=== PATIENT | female | born 1980 | race Caucasian/White ===

== ENCOUNTER 2021-03-08 14:45 | Emergency (ER) | payer OTHER, BC, SELFPAY ==
--- NOTE | ~2021-03-08 | XR_ITS ---
XR ankle RT min 3V DATE: 03/08/2021 15:19 INDICATION: Fall today. Lateral ankle pain and swelling TECHNIQUE: 4 views COMPARISON: None FINDINGS: There is lateral soft tissue swelling. No fracture or dislocation of the ankle or disruptio n of the ankle mortise is detected. No periosteal reaction or bone destruction. Moderate plantar calcaneal enthesopathy. Slight posterior calcaneal enthesopathy. IMPRESSION: Lateral soft tissue swelling of the ankle; no fracture or dislocation Reviewed, dictated and finalized at location A. IMPRESSION: Lateral soft tissue swelling of the ankle; no fracture or dislocati on
[2021-03-08 14:53] VITALS: BP 145/71; PULSE 86; RESP 18; TEMP 36.3; O2SAT 98
--- NOTE | 2021-03-08 16:52 | ED.GENADULT ---
HPI - General Adult General Chief complaint: Extremity Injury, Lower Stated complaint: fall/ r ankle pain Time Seen by Provider: 03/08/21 15:54 Source: patient Mode of arrival: ambulatory Limitations: no limitations History of Present Illness HPI narrative: Patient a 40-year-old female who presents with right ankle pain that began after twisting the ankle earlier today patient denies similar occurrence in the past patient has not had anything for pain patient notes discomfort of the left knee patient presents in no distress has not anything for pain has a walker at home. Related Data Allergies Allergy/AdvReac Type Severity Reaction Status Date / Time No Known Allergies Allergy Verified 03/08/21 15:57 Review of Systems Review of Systems: All systems reviewed & are unremarkable except as noted in HPI and below PMFSH Past Medical History Medical History (Updated 03/08/21 @ 17:00 by Troy Prince PA-C) Morbid obesity Surgical History Surgical History (Updated 03/08/21 @ 16:55 by Troy Prince PA-C) Gastric bypass status for obesity Social History Social History Social History: Smoking status: Never smoker Second hand tobacco smoke exposure: No Alcohol intake: current Substance use: never Substance use type: does not use Gender identity (if verbalized by the patient): Female Exam Narrative: Exam Narrative: GENERAL: Well-appearing, morbidly obese, and in no acute distress. HEAD: Normocephalic, atraumatic. EYES: PERRLA and EOMI. ENT: Nares clear, no rhinorrhea or epistaxis. Mucous membranes moist. EXTREMITIES: Swelling and tenderness of the right ankle with out other deformities. No deformity of the anterior left knee mild tenderness SKIN: Warm, dry, no rash. NEURO: No focal deficits. Alert and oriented x3. Cranial nerves II through XII grossly intact. Neurovascularly intact PSYCH: Normal mood and affect. Course Course Emergency Course: Patient evaluated the emergency department no high risk changes in the imaging will be referred to orthopedics and primary care for further evaluation Vital Signs Vital signs: Vital Signs Temperature 97.3 F L 03/08/21 14:53 Pulse Rate 86 03/08/21 14:53 Respiratory Rate 18 03/08/21 14:53 Blood Pressure 145/71 H 03/08/21 14:53 Pulse Oximetry 98 03/08/21 14:53 Temperature 97.3 F L 03/08/21 14:53 Pulse Rate 86 03/08/21 14:53 Respiratory Rate 18 03/08/21 14:53 Blood Pressure 145/71 H 03/08/21 14:53 Pulse Oximetry 98 03/08/21 14:53 Medical Decision Making MDM Narrative Medical decision making narrative: Patients injury or pain is consistent with musculoskeletal etiology. No signs of neurological or vascular compromise on exam. Compartments and tisues are soft without signs of compartment syndrome. Pain is felt appropriate for further evaluation on an outpatient basis. Vital Signs Vital Signs: Vital Signs Temperature 97.3 F L 03/08/21 14:53 Pulse Rate 86 03/08/21 14:53 Respiratory Rate 18 03/08/21 14:53 Blood Pressure 145/71 H 03/08/21 14:53 Pulse Oximetry 98 03/08/21 14:53 Temperature 97.3 F L 03/08/21 14:53 Pulse Rate 86 03/08/21 14:53 Respiratory Rate 18 03/08/21 14:53 Blood Pressure 145/71 H 03/08/21 14:53 Pulse Oximetry 98 03/08/21 14:53 Imaging Data Radiologist's impression: ITS Impressions Ankle X-Ray 03/08/21 15:25 IMPRESSION: Lateral soft tissue swelling of the ankle; no fracture or dislocation Discharge Plan Discharge Clinical Impression: Ankle sprain and strain, Contusion of knee, left Patient Disposition: Home, Self-Care Condition: Stable Instructions: Antibiotic Form, Ankle Sprain (ED) Additional Instructions: Wear Saurabh wrap and use walker with limited weight on the affected leg until able to bear weight without pain. Ice and elevate extremity. Pain medication as n
[2021-03-08] MEDS: HYDROcodone/acetaminophen (*CRX) 5-325 MG TABLET 1 TAB PO (16:58)
[2021-03-08 17:31] VITALS: BP 163/90; PULSE 81; RESP 18; O2SAT 97
== END 2021-03-08 17:25 | disposition home or self-care (01) ==
PROVIDERS: Emergency Provider Emergency Medicine; PCP Family Medicine
DX: S93.401A Sprain of unspecified ligament of right ankle, initial encounter (principal); S96.911A Strain of unspecified muscle and tendon at ankle and foot level, right foot, initial encounter; S80.02XA Contusion of left knee, initial encounter; E66.01 Morbid (severe) obesity due to excess calories; Z68.42 Body mass index [BMI] 45.0-49.9, adult; Z98.84 Bariatric surgery status; X50.9XXA Other and unspecified overexertion or strenuous movements or postures, initial encounter; W19.XXXA Unspecified fall, initial encounter
CPT/HCPCS: 73610; 99283; A9270

== ENCOUNTER 2022-10-03 09:52 | Outpatient (CLI) | payer BC, SELFPAY ==
[2022-10-03 10:36] LABS: Basophils Percent Auto 0.3 % (0.2-1.2); Eosinophils Absolute Auto 0.1 K/mm3 (0-0.3); Hematocrit 32.7 % (37.0-47.0); Hemoglobin 9.6 g/dL (12.0-15.0); Immature Granulocyte Absolute 0.02 K/mm3 (0.00-0.031); Immature Granulocyte Percent A 0.3 % (0-0.5); Lymphocytes Absolute Auto 2.02 K/mm3 (0.9-3.2); Lymphocytes Percent Auto 29.7 % (18.3-44.2); Mean Corpuscular HGB Conc 29.4 g/dl (32-36); Mean Corpuscular Hemoglobin 21.7 pg (26-34); Mean Platelet Volume 11.7 fl (7.4-10.4); Monocytes Absolute Auto 0.7 K/mm3 (0.1-0.6); Neutrophils Percent Auto 58.7 % (45.5-73.1); Platelet Count Result 205 k/mm3 (150-375); Red Blood Count 4.42 M/mm3 (4.2-5.4); Red Cell Distribution Width 15.6 % (11.5-14.5); White Blood Count 6.8 K/mm3 (4.5-10.0)
[2022-10-03 10:41] LABS: Appearance Urine Clear (Clear); Bilirubin Urine Negative (Negative); Blood Urine Negative (Negative); Color Urine Yellow (Yellow); Glucose Urine UA 2+ mg/dL (Negative); Ketones Urine Trace mg/dL (Negative); Leukocyte Esterase Ur Negative LEU/UL (NEGATIVE); Nitrate Urine Negative (Negative); Protein Urine Negative (Negative); Specific Grav Ur >= 1.030 (1.001-1.035); Urobilinogen Urine 0.2 mg/dL (<2.0); pH Urine 5.5 (5.0-9.0)
[2022-10-03 10:50] LABS: Bacteria Urine Trace /hpf; Mucus Urine Rare /lpf; RBC Urine 0-2 /hpf (0-2); Squamous Epithelial Cell Urine Few /hpf (Few); WBC Urine 0-3 /hpf (0-3)
[2022-10-03 10:53] LABS: Hemoglobin A1C 9.6 % (<5.7)
[2022-10-03 10:54] LABS: Alanine Aminotransferase 15 U/L (6-35); Albumin Level 3.9 g/dL (3.5-5.1); Alkaline Phosphatase 62 U/L (38-126); Amylase 58 U/L (30-110); Anion Gap 11 mmol/L (8-16); Aspartate Amino Transferase 19 U/L (14-36); Bilirubin,Total 0.3 mg/dL (0.2-1.3); Blood Urea Nitrogen 9 mg/dL (7-17); Calcium 8.4 mg/dL (8.4-10.2); Carbon Dioxide 26 mmol/L (22-30); Chloride 101 mmol/L (98-107); Cholesterol 183 mg/dL (0-200); Estimated Glomerular Filt Rate > 60; Glucose 220 mg/dL (65-110); HDL Direct 50 mg/dL; Lipase 58 U/L (23-300); Sodium 138 mmol/L (137-145); Triglycerides 109 mg/dL (<150)
[2022-10-03 11:05] LABS: LDL Cholesterol Direct 96 mg/dL
[2022-10-03 11:07] LABS: Add Urine Microscopic? YES
[2022-10-03 12:53] LABS: Anisocytosis 1+ (NORMAL); Ovalocytes 1+ (NORMAL); Platelet Estimate Adequate (Adequate)
[2022-10-03 12:54] LABS: Poikilocytosis 1+ (NORMAL); Schistocytes None Seen (NORMAL)
== END 2022-10-03 09:53 | disposition home or self-care (01) ==
LOC: ANHLAB 09:54
PROVIDERS: PCP Family Medicine; Visit Provider Physician Assistant
DX: R10.9 Unspecified abdominal pain (principal); E11.65 Type 2 diabetes mellitus with hyperglycemia; Z98.84 Bariatric surgery status
CPT/HCPCS: 36415; 80053; 80061; 81001; 82150; 83036; 83690; 84443; 85025

== ENCOUNTER 2022-11-19 12:56 | Inpatient (IN) | payer BC, SELFPAY ==
[2022-11-19] VITALS (20 sets, daily range): BP systolic 102–146; BP diastolic 47–87; PULSE 86–132; RESP 16–44; TEMP 36.2–37.3; O2SAT 91–98; BMI 50.8
--- NOTE | ~2022-11-19 | CT_ITS ---
EXAMINATION: CT abdomen pelvis w con DATE: 11/19/2022 15:17 INDICATION: RUQ/RLQ pain TECHNIQUE: Computed tomography (CT) of the abdomen and pelvis was performed with 100 mL Omnipaque-350 intravenous contrast. Automated exposure control and iterative reconstruction technique were employe d. The dose-length product was 1771.88 mGy-cm. COMPARISON: None. FINDINGS: Lower thorax: Unremarkable Liver: Small volume perihepatic fluid collection. Biliary/Gallbladder: Gallbladder is normal. No bile duct dilation. Pancreas: No mass or duct dilation. Spleen: Normal. Adrenals:No mass. Kidneys: No mass, stone, or hydronephrosis. GI tract: Changes of uncomplicated appearing gastric bypass. No small or large bowel dilation. Ruptur ed appendix. Irregular extraluminal adjacent gas collection in the retrocecal fat, accompanied by dinora ewhat rim-enhancing fluid and gas in the right paracolic gutter extending up to the liver. Mesentery/Peritoneum: No ascites, mass, or free air. Retroperitoneum: No mass. Pelvis: Pelvic organs are within normal limits. Small volume hyperdense free fluid in the deep pelvis . Soft Tissues: Soft tissues and body wall unremarkable. Bones: No acute osseous finding. IMPRESSION: Ruptured appendicitis with contained extra luminal gas in the retrocecal mesenteric fat and early dev eloping right paracolic gutter abscess. There is also perihepatic and deep pelvic fluid, without quintanilla ges of abscess formation in the dislocations at this time. Results reported telephonically to Dr. Beyer by Dr. Clements at 3:27 PM on 11/11/2022. Reviewed, dictated and finalized at location K. RUNNER IMPRESSION: Ruptured appendicitis with contained extra luminal gas in the retrocecal mesent usman fat and early developing right paracolic gutter abscess. There is also per ihepatic and deep pelvic fluid, without changes of abscess formation in the dis locations at this time. Results reported telephonically to Dr. Beyer by Dr. Clements at 3:27 PM on 11/11.
--- NOTE | ~2022-11-19 | CT_ITS ---
EXAMINATION: CT abdomen pelvis w con DATE: 11/23/2022 14:01 INDICATION: tachycardia and pain s/p rupt appy TECHNIQUE: Computed tomography (CT) of the abdomen and pelvis was performed with 100 mL Omnipaque-350 intravenous contrast. Automated exposure control and iterative reconstruction technique were employe d. The dose-length product was 1795.70 mGy-cm. COMPARISON: 11/11/2022. FINDINGS: Lower thorax: Homogenous subsegmental bibasilar consolidation. Small right pleural effusion. Liver: Normal. Biliary/Gallbladder: Slightly increased pericholecystic fluid and inflammatory change, likely reactiv e to adjacent mesenteric inflammatory change. No bile duct dilation. Pancreas: No mass or duct dilation. Spleen: Normal. Adrenals:No mass. Kidneys: No mass, stone, or hydronephrosis. GI tract: 2.3 x 3.7 cm rim enhancing fluid collection along the right lateral aspect of the distal es ophagus at the GE junction, previously much smaller and appear to be a small hiatal hernia versus duo denal diverticulum. The collection appears to be in communication with the perihepatic fluid. Prior g astric surgery. No small or large bowel dilation. The ruptured appendix is less well delineated in to day's examination. Mesentery/Peritoneum: Similar degree of perihepatic fluid. Increased mesenteric stranding in the righ t abdomen. The mildly rim-enhancing fluid and gas collection in the right paracolic gutter is decreas ed in size. However, the right abdominal approach drainage catheter terminates adjacent to the cecum and does not drain the collection. Retroperitoneum: No mass. Pelvis: Decreased volume of free pelvic fluid. 1.8 x 4.2 cm rim-enhancing fluid collection in the lef t adnexa. Otherwise the remaining pelvic organs are within normal limits. Soft Tissues: Soft tissues and body wall unremarkable. Bones: No acute osseous finding. IMPRESSION: 1. Although the right paracolic gutter abscess is smaller in size, the right anterior abdominal drain age catheter is dislodged and the tip no longer drains the collection. 2. Rim-enhancing fluid collections, concerning for developing abscesses, present at the gastroesophag eal junction and left adnexa. 3. Generally increased inflammatory changes in the right abdominal mesentery. 4. Small right pleural effusion. Bibasilar atelectasis/consolidation. Reviewed, dictated and finalized at location K. DRIVER IMPRESSION: 1. Although the right paracolic gutter abscess is smaller in size, the right an terior abdominal drainage catheter is dislodged and the tip no longer drains th e collection. 2. Rim-enhancing fluid collections, concerning for developing abscesses, presen t at the gastroesophageal junction and left adnexa. 3. Generally increased inflammatory changes in the right abdominal mesentery. 4. Small right pleural effusion. Bibasilar atelectasis/consolidation.
--- NOTE | ~2022-11-19 | CT_ITS ---
EXAMINATION: CT abdomen pelvis w con DATE: 11/26/2022 12:44 INDICATION: Right upper quadrant abdominal pain. TECHNIQUE: Computed tomography (CT) of the abdomen and pelvis was performed with 100 mL Omnipaque 350 intravenous contrast. Automated exposure control and iterative reconstruction technique were employe d. The dose-length product was 1717.65 mGy-cm. COMPARISON: CT abdomen and pelvis 11/23/2022 FINDINGS: The visualized portions of the lung bases demonstrate mild atelectasis. There is a small ri ght pleural effusion. The heart size is normal. No pericardial effusion. The liver is normal. The gal lbladder is normal in size. Gallbladder wall thickening is noted, consistent with inflammation versus edema. There are changes of gastric bypass procedure. The spleen, pancreas, adrenal glands, and kidn eys are normal. There are no dilated loops of bowel. There is wall thickening in the ascending colon and distal ileum, consistent with inflammation versus edema. Again seen are foci of gas in the fat an d peritoneum in right paracolic gutter. There is ascites in a small sliding hiatal hernia. There is a small volume of ascites adjacent to the liver and in the paracolic gutters and pelvis. Some of the a reas of fluid demonstrate mass effect and peritoneal thickening and enhancement. There is fat strandi ng in the abdomen predominantly on the right, consistent with inflammation versus edema. Body wall ed emma is noted. There are no pathologically enlarged lymph nodes. There is moderate thoracic spondylosi s and severe lumbar spondylosis. IMPRESSION: 1. Small volume of ascites, likely an exudate given the areas of mass effect and areas of peritoneal thickening and enhancement. 2. Wall thickening of ascending colon, distal ileum, and gallbladder, consistent with inflammation ve rsus edema. Fat stranding in the abdomen predominantly on the right, consistent with inflammation mir constantin edema. 3. Small right pleural effusion. Reviewed, dictated and finalized at location A. E RECEPTIONIST IMPRESSION: 1. Small volume of ascites, likely an exudate given the areas of mass effect an d areas of peritoneal thickening and enhancement. 2. Wall thickening of ascending colon, distal ileum, and gallbladder, consisten t with inflammation versus edema. Fat stranding in the abdomen predominantly on the right, consistent with inflammation versus edema. 3. Small right pleural effusion.
[2022-11-19 13:24] LABS: Basophils Absolute Auto 0.1 K/mm3 (0.0-0.1); Basophils Percent Auto 0.6 % (0.2-1.2); Eosinophils Absolute Auto 0.1 K/mm3 (0-0.3); Eosinophils Percent Auto 0.3 % (0-4.4); Hematocrit 33.8 % (37.0-47.0); Hemoglobin 10.1 g/dL (12.0-15.0); Immature Granulocyte Absolute 0.67 K/mm3 (0.00-0.031); Immature Granulocyte Percent A 4.1 % (0-0.5); Lymphocytes Absolute Auto 3.99 K/mm3 (0.9-3.2); Lymphocytes Percent Auto 24.4 % (18.3-44.2); Mean Corpuscular HGB Conc 29.9 g/dl (32-36); Mean Corpuscular Hemoglobin 21.2 pg (26-34); Mean Platelet Volume 10.9 fl (7.4-10.4); Monocytes Absolute Auto 1.3 K/mm3 (0.1-0.6); Monocytes Percent Auto 8.1 % (2.6-8.5); Neutrophils Absolute Auto 10.2 K/mm3 (1.3-6.7); Neutrophils Percent Auto 62.5 % (45.5-73.1); Nucleated Red Blood Cells Perc 0.2 % (0.0-0.2); Platelet Count Result 377 k/mm3 (150-375); Red Blood Count 4.76 M/mm3 (4.2-5.4); Red Cell Distribution Width 17.3 % (11.5-14.5); White Blood Count 16.4 K/mm3 (4.5-10.0)
[2022-11-19 13:38] LABS: Alanine Aminotransferase 14 U/L (6-35); Albumin Level 3.8 g/dL (3.5-5.1); Alkaline Phosphatase 135 U/L (38-126); Anion Gap 15 mmol/L (8-16); Aspartate Amino Transferase 20 U/L (14-36); Bilirubin,Total 0.4 mg/dL (0.2-1.3); Blood Urea Nitrogen 6 mg/dL (7-17); Calcium 8.7 mg/dL (8.4-10.2); Carbon Dioxide 16 mmol/L (22-30); Chloride 102 mmol/L (98-107); Estimated CRCL calculation 202 ml/min; Estimated Glomerular Filt Rate > 60; Glucose 188 mg/dL (65-110); Lipase 33 U/L (23-300); Potassium 3.7 mmol/L (3.4-5.0); Sodium 133 mmol/L (137-145)
[2022-11-19 13:44] LABS: Burr Cells 1+ (NORMAL); Large Platelets Present; Ovalocytes 1+ (NORMAL); Poikilocytosis 1+ (NORMAL)
[2022-11-19 13:45] LABS: Anisocytosis 1+ (NORMAL); Schistocytes Rare (NORMAL)
--- NOTE | 2022-11-19 14:31 | ED.ABDPAIN ---
HPI - Abdominal Pain General Chief Complaint: Abdominal Pain Stated Complaint: LAP AFTER LIFTING HEAVY OBJECT Time Seen by Provider: 11/19/22 14:30 History of Present Illness HPI narrative: Patient is a 41-year-old female with a history of gastric bypass in 2017 presenting with abdominal pain. Patient states that yesterday she was lifting something heavy when she suddenly developed right-sided abdominal pain. States this has been associated with nausea and several episodes of diarrhea. States that she has not actually vomited but she has been spitting things up. No fevers or chills, headache, chest pain, shortness of breath, cough, dysuria, hematuria. Related Data Allergies Allergy/AdvReac Type Severity Reaction Status Date / Time No Known Allergies Allergy Verified 11/19/22 13:04 Review of Systems Review of Systems: All systems reviewed & are unremarkable except as noted in HPI and below PMFSH Past Medical History Medical History (Updated 11/28/22 @ 14:08 by Sneha Cruz MD) Diabetes Morbid obesity Surgical History Surgical History (Updated 11/19/22 @ 17:03 by Axel Elaine MD) Gastric bypass status for obesity Social History Social History Social History: Smoking status: Never smoker Second hand tobacco smoke exposure: No Alcohol intake: current Drinks per week: 1 Alcohol use details: Occasionally Substance use: never Substance use type: does not use Other substance usage details: EDIBLES Last use: LAST WEEK Lack of Transportation: No Lack of Food: Never True Current Housing: I Have Housing Concerned About Future Housing: No Difficulty Paying Gas/Electric Bills: No Difficulty Paying for Meds: No Currently Unemployed: No Education: Master's Degree or Higher Difficulty w/ Childcare or Family Care: No Gender identity (if verbalized by the patient): Female Sexual Orientation (if Verbalized by the Patient): Straight or Heterosexual Spiritual care concerns: No Exam Narrative: GENERAL: Moderately distressed secondary to pain HEAD: Normocephalic, atraumatic. EYES: PERRLA and EOMI. ENT: Nares clear, no rhinorrhea or epistaxis. Mucous membranes moist. NECK: Supple. CHEST: Clear to auscultation. No respiratory distress. HEART: Regular rate and rhythm. No murmur heard. Normal peripheral pulses. ABDOMEN: Soft, tender right upper quadrant and right lower quadrant without guarding or rebound, nondistended EXTREMITIES: Normal range of motion. No edema. SKIN: Warm, dry, no rash. NEURO: No focal deficits. Alert and oriented x3. Course Vital Signs Vital signs: Vital Signs Temperature 98.6 F 11/19/22 12:59 Pulse Rate 86 11/19/22 12:59 Respiratory Rate 20 11/19/22 12:59 Blood Pressure 102/47 L 11/19/22 12:59 Pulse Oximetry 98 11/19/22 12:59 Temperature 97.7 F 11/27/22 05:31 Pulse Rate 83 11/27/22 05:31 Respiratory Rate 18 11/27/22 05:31 Blood Pressure 122/66 11/27/22 05:31 Pulse Oximetry 95 11/27/22 05:31 Oxygen Delivery Room Air 11/27/22 09:00 Oxygen Flow Rate 2 11/19/22 20:02 MDM - Abdominal Pain MDM Narrative Medical decision making narrative: Patient is a 41-year-old female presenting with right-sided abdominal pain and nausea. Patient is tachycardic, otherwise vitals are within normal limits. Exam is remarkable for the above. Blood work is significant for leukocytosis. CT abdomen pelvis is concerning for ruptured appendicitis with abscess formation. Patient has been covered with [facility]. I spoke with surgery who will take the patient to the OR today. Lab Data 11/19/22 13:11 11/19/22 13:11 Labs: Lab Results 11/19/22 11/19/22 11/19/22 Range/Units 13:11 13:11 13:11 WBC 16.4 H (4.5-10.0) K/mm3 RBC 4.76 (4.2-5.4) M/mm3 Hgb 10.1 L (12.0-15.0) g/dL Hct 33.8 L (37.0-47.0) % MCV 71.0 L
[2022-11-19] MEDS: SODIUM CHLORIDE 0.9% IV 1,000 ML 999 ML IV CONT (14:58)
[2022-11-19] MEDS: HYDROmorphone HCL INJ (*CRX) 1 MG/ML SYR IV PUSH ×2 (14:58→16:33)
[2022-11-19] MEDS: ONDANSETRON INJ 4 MG/2 ML VIAL IV PUSH (14:58)
[2022-11-19] MEDS: PIPERACILLIN/TAZOBACTAM SOD 4.5 GM in SODIUM CHLORIDE 0.9% IV 100 ML 200 ML IVPB (15:49)
[2022-11-19 16:50] LABS: Glucose Point of Care 256 mg/dl (65-105)
[2022-11-19] MEDS: LACTATED RINGERS 1,000 ML 30 ML IV CONT ×2 (16:50→18:56)
--- NOTE | 2022-11-19 16:53 | PM.IMHP ---
H&P: HPI History of Present Illness Date/Time: 11/19/22 16:53 Chief Complaint: Abdominal pain Narrative: Patient is a 41-year-old woman who about 10 days ago started having pretty severe pain in the right lower abdomen. She thought she pulled a muscle. That pain lasted a week. It would hurt to move. She did not notice any fever nausea or vomiting. This seemed to get better but then today she stood up and had excruciating right lower quadrant abdominal pain. She had made an appointment with her physician to be seen tomorrow but with the pain that she was experiencing today, she decided to come to the emergency room. She has had some nausea and vomiting today as well. In the emergency room she was noted to have tenderness on the right side of the abdomen. [place] [id number] [place] scan was done and shows the patient to have evidence of ruptured appendicitis. Also noteworthy, patient had laparoscopic Arpan-en-Y gastric bypass in 2017. She lost 150 lb at the time but has gained weight back. Her current BMI is 50. She also has type 2 diabetes. She was seen in the emergency room and is now taken to surgery for laparoscopic appendectomy with plans to admit the patient postoperatively. Review of Systems Review of Systems: All systems reviewed & are unremarkable except as noted in HPI and below (HPI and those items noted below) Constitutional: Constitutional: Denies chills and Denies fever(s) Cardiovascular: Cardiovascular: Denies chest pain, Denies diaphoresis, Denies dyspnea and Denies paroxysmal nocturnal dyspnea Respiratory: Respiratory: Denies chest congestion, Denies cough and Denies dyspnea Integumentary/Breasts: Skin/Breast: Denies lesions and Denies rash PMFSH Past Medical History Medical History (Updated 11/19/22 @ 17:03 by Axel Elaine MD) Diabetes Morbid obesity Surgical History Surgical History (Updated 11/19/22 @ 17:03 by Axel Elaine MD) Gastric bypass status for obesity Social History Social History Social History: Smoking status: Never smoker Second hand tobacco smoke exposure: No Alcohol intake: current Alcohol use details: Occasionally Substance use: never Substance use type: does not use Gender identity (if verbalized by the patient): Female Sexual Orientation (if Verbalized by the Patient): Straight or Heterosexual Meds Home Medications and Allergies Home Medications Medication Instructions Recorded Confirmed Type acetaminophen 650 mg 650 mg PO Q12H PRN pain #10 tabs 03/08/21 10/03/22 Rx tablet,extended release (Tylenol Arthritis Pain) omeprazole 40 mg capsule,delayed 40 mg PO DAILY #90 caps 10/03/22 10/03/22 Rx release blood sugar diagnostic (Blood #100 ea 10/08/22 Rx Glucose Test strips) blood-glucose meter #1 ea 10/08/22 Rx dapagliflozin 10 mg tablet 10 mg PO QAM #30 tabs 10/08/22 Rx (Farxiga) glipizide 5 mg tablet, extended 5 mg PO DAILY #30 tabs 10/08/22 Rx release 24 hr lancets #200 ea 10/08/22 Rx Allergies Allergy/AdvReac Type Severity Reaction Status Date / Time No Known Allergies Allergy Verified 11/19/22 13:04 Vital Signs Vital Signs - 24 hr 11/19/22 12:59 11/19/22 15:38 11/19/22 15:45 Temperature 37.0 C Pulse Rate 86 131 H 123 H Respiratory Rate 20 27 H 31 H Blood Pressure 102/47 L Pulse Oximetry 98 98 96 11/19/22 15:46 11/19/22 15:47 11/19/22 16:01 Temperature Pulse Rate 122 H 124 H 128 H Respiratory Rate 36 H 42 H 33 H Blood Pressure 116/67 Pulse Oximetry 96 96 97 11/19/22 16:15 11/19/22 16:30 11/19/22 16:31 Temperature Pulse Rate 129 H 132 H 129 H Respiratory Rate 30 H 44 H 40 H Blood Pressure 122/79 Pulse Oximetry 93 97 97 Exam Const: General: no acute distress, alert, awake, uncomfortable and obese Nutritional Appearance: obese Orientation/consciousness: No confusio
--- NOTE | 2022-11-19 16:55 | WPDANESEPPF ---
Anes - Initial Pre Proc Eval Procedure: Operation Date: 11/19/22 17:30 Proposed Procedures p Laparoscopic Appendectomy; Possible Open - Axel Elaine MD Date/Time: 11/19/22 16:55 Surgeon: Axel Elaine MD Pre Op Diagnosis: LAP AFTER LIFTING HEAVY OBJECT Patient Data Age: 41 Gender: F Height: 1.75 m Weight: 154 kg Last Vital Signs Temp 37.0 C 11/19/22 12:59 Pulse 129 H 11/19/22 16:31 Resp 40 H 11/19/22 16:31 BP 122/79 11/19/22 16:31 Pulse Ox 97 11/19/22 16:31 Allergies Allergy/AdvReac Type Severity Reaction Status Date / Time No Known Allergies Allergy Verified 11/19/22 13:04 Home Medications Medication Instructions Recorded Confirmed Type acetaminophen 650 mg 650 mg PO Q12H PRN pain #10 tabs 03/08/21 10/03/22 Rx tablet,extended release (Tylenol Arthritis Pain) omeprazole 40 mg capsule,delayed 40 mg PO DAILY #90 caps 10/03/22 10/03/22 Rx release blood sugar diagnostic (Blood #100 ea 10/08/22 Rx Glucose Test strips) blood-glucose meter #1 ea 10/08/22 Rx dapagliflozin 10 mg tablet 10 mg PO QAM #30 tabs 10/08/22 Rx (Farxiga) glipizide 5 mg tablet, extended 5 mg PO DAILY #30 tabs 10/08/22 Rx release 24 hr lancets #200 ea 10/08/22 Rx Laboratory Tests 11/19/22 11/19/22 11/19/22 13:11 13:11 16:19 WBC 16.4 K/mm3 H K/mm3 (4.5-10.0) RBC 4.76 M/mm3 M/mm3 (4.2-5.4) Hgb 10.1 g/dL L g/dL (12.0-15.0) Hct 33.8 % L % (37.0-47.0) MCV 71.0 fl L fl (80-100) MCH 21.2 pg L pg (26-34) MCHC 29.9 g/dl L g/dl (32-36) RDW 17.3 % H % (11.5-14.5) Plt Count 377 k/mm3 H D k/mm3 (150-375) MPV 10.9 fl H fl (7.4-10.4) Immature Gran % (Auto) 4.1 % H % (0-0.5) Neut % (Auto) 62.5 % % (45.5-73.1) Lymph % (Auto) 24.4 % % (18.3-44.2) Sutter % (Auto) 8.1 % % (2.6-8.5) Eos % (Auto) 0.3 % % (0-4.4) Baso % (Auto) 0.6 % % (0.2-1.2) Lymph # (Auto) 3.99 K/mm3 H K/mm3 (0.9-3.2) Sutter # (Auto) 1.3 K/mm3 H K/mm3 (0.1-0.6) Eos # (Auto) 0.1 K/mm3 K/mm3 (0-0.3) Baso # (Auto) 0.1 K/mm3 K/mm3 (0.0-0.1) Abs Immat Gran (auto) 0.67 K/mm3 H K/mm3 (0.00-0.031) Absolute Neuts (auto) 10.2 K/mm3 H K/mm3 (1.3-6.7) Absolute Nucleated RBC 0.0 K/mm3 K/mm3 (0.0-0.012) Nucleated RBC % 0.2 % % (0.0-0.2) Platelet Estimate Slightly increased (Adequate) Large Platelets Present Poikilocytosis 1+ (NORMAL) Anisocytosis 1+ (NORMAL) Ovalocytes 1+ (NORMAL) Redd Cells 1+ (NORMAL) Schistocytes Rare (NORMAL) Sodium 133 mmol/L L mmol/L (137-145) Potassium 3.7 mmol/L mmol/L (3.4-5.0) Chloride 102 mmol/L mmol/L (98-107) Carbon Dioxide 16 mmol/L L mmol/L (22-30) Anion Gap 15 mmol/L mmol/L (8-16) BUN 6 mg/dL L mg/dL (7-17) Creatinine 0.50 mg/dL L mg/dL (0.7-1.0) Estim Creat Clear Calc 202 ml/min ml/min Estimated GFR > 60 (59 - ) Glucose 188 mg/dL H mg/dL (65-110) POC Capillary Glucose Calcium 8.7 mg/dL mg/dL (8.4-10.2) Total Bilirubin 0.4 mg/dL mg/dL (0.2-1.3) AST 20 U/L U/L (14-36) ALT 14 U/L U/L (6-35) Alkaline Phosphatase 135 U/L H U/L (38-126) Total Protein 8.0 g/dL g/dL (6.3-8.2) Albumin 3.8 g/dL g/dL (3.5-5.1) Lipase 33 U/L U/L (23-300) Influenza A (RT-PCR) Pending Influenza B (RT-PCR) Pending SARS-CoV-2 RNA (RT-PCR) Pending 11/19/22 16:46 WBC RBC Hgb Hct MCV MCH MCHC RDW Plt Count MPV Immature Gran % (Auto) N
[2022-11-19 17:02] LABS: Influenza A QL RT-PCR Negative (Negative); Influenza B QL RT-PCR Negative (Negative); SARS-CoV-2 RNA PCR Negative
[2022-11-19] MEDS: BUPIVACAINE/EPINEPHRINE 0.5% 30 ML VIAL INFILTRATE (18:40)
--- NOTE | 2022-11-19 18:47 | W.PM.PROC2 ---
Procedure Note - Detailed Date of Procedure 11/19/22 Pre-op Diagnosis Ruptured appendicitis Post-op Diagnosis Other (Ruptured appendicitis with abdominal abscess and generalized peritonitis) Procedure Performed Laparoscopic appendectomy, laparoscopic drainage of intra-abdominal abscess Surgeon Axel Elaine MD [employer] [place] [employer] Anesthesia General and Local (0.5% Marcaine with epinephrine) Indications Patient is a 41-year-old woman with at least 10 days of right lower quadrant abdominal pain worse today. She came to the emergency room where she had guarding and rebound in the right lower quadrant with nausea and vomiting. [place] [address]. CT scan showed acute appendicitis with ruptured appendicitis. She is taken now to surgery for laparoscopic appendectomy Findings Patient had a lot of cloudy yellow fluid throughout the abdomen. There was evidence of generalized peritonitis. She had a foul-smelling large abscess in the right lower quadrant against the abdominal wall. The appendix was ruptured in half and had to be removed in 2 pieces. It was retrocecal. There was a lot of oozing of blood from the area of the abscess and the ruptured appendix. To uses of Surgiflo were required to achieve hemostasis. A drain was placed in the area of the abscess. Description of Procedure Patient was taken to surgery and induced into general anesthesia. The abdomen is prepped and draped. Initial trocar was a 5 mm left subcostal applied Medical optical trocar. We insufflated the abdomen and then placed the remaining trocars under direct visualization. There was a 5 mm port placed above the umbilicus. There was another 5 mm port placed just below the umbilicus and a 10 11 port was placed in the left lower quadrant. Later in the procedure we also placed a 5 mm port in the right upper quadrant for better visualization and camera placement. It was immediately noted that there was a lot of cloudy yellow fluid in the abdomen. A lot of this was in the pelvis and was all suctioned away. The right tube and ovary looked normal. I then proceeded over to the cecum. I gently be dissected the cecum off the right lateral abdominal wall and 200 cc of greenish very foul-smelling purulent fluid came forth. This was then suctioned away thoroughly. It had left a pock marked lateral abdominal wall. It was also bleeding from raw surface areas. I suctioned this away. I then suctioned away purulent and some bloody fluid from the area of the liver. The appendix was not immediately obvious. I followed the tenia to the into the cecum and then saw what appeared to be the base of the appendix. It was at this point that I placed the additional 5 mm trocar at the right upper quadrant and put the camera there. We then teased the base of the appendix free from the cecum and from other structures. The appendix was clearly ruptured in half and the distal appendix was quite tattered but was able to be pulled up and dissected free from the rest of the right lower quadrant abscess. There was also some small amounts of stool that had spilled from 1 of the appendiceal lumens. These were largely suctioned and removed with the specimen. None were left behind that I could see. I then further dissected the appendix so that all of the proximal half the appendix was dissected free and the mesoappendix was divided with cautery. Continued dissection allowed me to pull up the into the cecum so that the appendix could be ligated at its base. A Vicryl endoloop was then placed. This was used to ligate the appendix at its base. The appendix was then amputated just above the ligature. The appendix was placed in an Endo-Catch bag. All pieces of stool and the distal appendix were also placed in the Endo-Catch bag. The Endo-Catch bag was then retrieved through the 10 11 left lower quadrant trocar site. We then continued to irrigate and suction the right lower quadrant. The irrigant was c
[2022-11-19 19:05] LABS: Glucose Point of Care 249 mg/dl (65-105)
[2022-11-19] MEDS: fentaNYL CITRATE INJ (*CRX) 100 MCG/2 ML VIAL 25 MCG IV PUSH ×4 (19:20→19:26)
--- NOTE | 2022-11-19 20:05 | ADMGEN ---
This patient, Keely Vaca, was admitted to 2 Medical Room 261-01. Patient/family oriented to hospital policies and general routines including ID bracelet, bed and alarms, visiting hours, pain management, procedures, bathroom and other care routines, personal items, smoking policy, room service/diet, and visiting hours. pt admitted per bed from or Information on how to activate the Rapid Response Team has been discussed. Patient/Family are encouraged to report perceived risks to care and to ask questions if they do not understand what they are told or what they should do.
[2022-11-19] MEDS: LACTATED RINGERS 1,000 ML 100 ML IV CONT (20:24)
[2022-11-19] MEDS: FAMOTIDINE 20 MG/2 ML VIAL IV PUSH (20:28)
[2022-11-19] MEDS: IBUPROFEN IV 800 MG/200 ML 800 MG/200 ML BAG 400 MG IVPB (20:35)
[2022-11-19 20:58] LABS: Glucose Point of Care 268 mg/dl (65-105)
[2022-11-19 21:07] LABS: Hemoglobin A1C 7.6 % (<5.7)
[2022-11-19] MEDS: MORPHINE SULFATE (*CRX) 4 MG/ML INJ IV PUSH (22:48)
[2022-11-20] VITALS (7 sets, daily range): BP systolic 108–133; BP diastolic 53–73; PULSE 102–112; RESP 16–22; TEMP 36.2–36.9; O2SAT 93–98
[2022-11-20 00:21] LABS: Add Urine Microscopic? YES; Appearance Urine Clear (Clear); Bilirubin Urine 2+ (Negative); Blood Urine 3+ (Negative); Color Urine Light Yellow (Yellow); Glucose Urine UA 2+ mg/dL (Negative); Ketones Urine 3+ mg/dL (Negative); Leukocyte Esterase Ur Negative LEU/UL (Negative); Nitrate Urine Negative (Negative); Protein Urine 1+ mg/dL (Negative); Urobilinogen Urine 0.2 mg/dL (<2.0); pH Urine 5.5 (5.0-9.0)
[2022-11-20] MEDS: IBUPROFEN IV 800 MG/200 ML 800 MG/200 ML BAG 400 MG IVPB ×4 (03:07→20:53)
[2022-11-20 06:11] LABS: Hemoglobin 9.8 g/dL (12.0-15.0); Mean Corpuscular HGB Conc 29.7 g/dl (32-36); Mean Corpuscular Hemoglobin 21.4 pg (26-34); Mean Corpuscular Volume 72.1 fl (80-100); Mean Platelet Volume 10.8 fl (7.4-10.4); Platelet Count Result 358 k/mm3 (150-375); Red Blood Count 4.58 M/mm3 (4.2-5.4); Red Cell Distribution Width 17.8 % (11.5-14.5); White Blood Count 30.3 K/mm3 (4.5-10.0)
[2022-11-20 06:20] LABS: Anion Gap 17 mmol/L (8-16); Blood Urea Nitrogen 10 mg/dL (7-17); Calcium 8.1 mg/dL (8.4-10.2); Carbon Dioxide 14 mmol/L (22-30); Chloride 104 mmol/L (98-107); Estimated CRCL calculation 133 ml/min; Estimated Glomerular Filt Rate > 60; Glucose 246 mg/dL (65-110); Potassium 3.7 mmol/L (3.4-5.0); Sodium 135 mmol/L (137-145)
[2022-11-20] MEDS: MORPHINE SULFATE (*CRX) 2 MG/ML INJ IV PUSH ×2 (07:00→20:54)
--- NOTE | 2022-11-20 08:03 | PM.PNGS ---
Progress Note: A&P Assessment and Plan (1) Ruptured appendicitis: Code(s): K35.32 - Acute appendicitis with perforation, localized peritonitis, and gangrene, without abscess Status: Acute Assessment and Plan: improving, continue IV antibiotics. Try full liquids. Up in chair or up walking today. Subjective Subjective Date/Time Seen: 11/20/22 08:03 Post Op day: 1 Patient reports: no new complaints, feels better and afebrile Exam GI: Inspection: incision (Dry and healing well) GI Palp: Yes Soft to palpation and Yes Tenderness to palpation present (GI) Objective Data Vital Signs Vital Signs: Vital Signs - 24 hr 11/19/22 12:59 11/19/22 15:38 11/19/22 15:45 Temperature 37.0 C Pulse Rate 86 131 H 123 H Respiratory Rate 20 27 H 31 H Blood Pressure 102/47 L Pulse Oximetry 98 98 96 Oxygen Delivery Oxygen Flow Rate 11/19/22 15:46 11/19/22 15:47 11/19/22 16:01 Temperature Pulse Rate 122 H 124 H 128 H Respiratory Rate 36 H 42 H 33 H Blood Pressure 116/67 Pulse Oximetry 96 96 97 Oxygen Delivery Oxygen Flow Rate 11/19/22 16:15 11/19/22 16:30 11/19/22 16:31 Temperature Pulse Rate 129 H 132 H 129 H Respiratory Rate 30 H 44 H 40 H Blood Pressure 122/79 Pulse Oximetry 93 97 97 Oxygen Delivery Oxygen Flow Rate 11/19/22 17:17 11/19/22 18:56 11/19/22 19:00 Temperature 36.9 C 37.3 C Pulse Rate 131 H 118 H 123 H Respiratory Rate 24 H 29 H 30 H Blood Pressure 140/87 131/77 143/86 H Pulse Oximetry 96 94 91 Oxygen Delivery Room Air Simple Face Mask Nasal Cannula Oxygen Flow Rate 10 4 11/19/22 19:15 11/19/22 19:30 11/19/22 19:41 Temperature Pulse Rate 121 H 119 H 121 H Respiratory Rate 34 H 30 H 25 H Blood Pressure 136/82 146/85 H 126/84 Pulse Oximetry 93 94 96 Oxygen Delivery Nasal Cannula Nasal Cannula Nasal Cannula Oxygen Flow Rate 4 2 2 11/19/22 20:32 11/19/22 20:02 11/19/22 21:51 Temperature 36.6 C 36.6 C Pulse Rate 125 H 122 H Respiratory Rate 16 16 Blood Pressure 111/57 L 118/59 L Pulse Oximetry 93 96 92 Oxygen Delivery Nasal Cannula Oxygen Flow Rate 2 11/19/22 22:00 11/20/22 00:00 11/20/22 01:32 Temperature 36.6 C 36.7 C 36.7 C Pulse Rate 110 H 112 H 102 H Respiratory Rate 22 H 22 H 16 Blood Pressure 110/60 118/63 108/53 L Pulse Oximetry 98 98 93 Oxygen Delivery Oxygen Flow Rate 11/20/22 07:00 Temperature Pulse Rate Respiratory Rate Blood Pressure 133/68 Pulse Oximetry Oxygen Delivery Oxygen Flow Rate Intake/Output Intake/Output: Intake & Output 11/17/22 11/18/22 11/19/22 11/20/22 23:59 23:59 23:59 23:59 Intake Total 1950 1450 Output Total 32 1320 Balance 1918 130 Meds/Results Medications: Active Medications Generic Name Dose Route Start Last Admin Trade Name Freq PRN Reason Stop Dose Admin Acetaminophen 500 mg 11/19/22 19:48 Acetaminophen 500 Mg Tablet PO Q6H PRN Mild Pain (1-3) or Fever Dextrose 12.5 gm 11/19/22 19:48 Dextrose 50% 25 Gm/50 Ml Syringe IV PUSH PRN PRN Hypoglycemia Protocol Enoxaparin Sodium 40 mg 11/20/22 09:00 Enoxaparin 40 Mg/0.4 Ml Syringe SUB-Q DAILY MIYA Famotidine 20 mg 11/19/22 21:00 11/19/22 20:28 Famotidine 20 Mg/2 Ml Vial IV PUSH 20 mg Q12HR MIYA Administration Glucagon 1 mg 11/19/22 19:48 Glucagon For Inj 1 Mg Vial IM PRN PRN Hypoglycemia Protocol Glucose 15 gm 11/19/22 19:48 Glucose Oral Gel 15 Gm Of Glucse In 37.5 Gm Tube PO PRN PRN Hypoglycemia Protocol Lactated Ringer's 1,000 mls @ 100 mls/hr 11/19/22 19:48 11/19/22 20:24 Lr - Lactated Ringers Iv IV CONT 100 mls/hr .Q10H MIYA Administration Ibuprofen 800 mg in 200 mls @ 400 mls/hr 11/19/22 21:00 11/20/22 03:40 Caldolor 800 Mg/200 Ml IVPB Infused Q6H MIYA Infusion Piperacillin/Tazobactam/Dextrose 3.375 gm in 50 mls @ 100 mls/hr 11/19/22 21:00 11/20/22 03:0
[2022-11-20] MEDS: LACTATED RINGERS 1,000 ML 100 ML IV CONT ×2 (08:31→22:41)
[2022-11-20] MEDS: NYSTATIN 100,000 UNITS/ML SUSP 5 ML ORAL.SUSP PO ×4 (08:34→21:03)
[2022-11-20] MEDS: ENOXAPARIN 40 MG/0.4 ML SYRINGE SUB-Q (08:34)
[2022-11-20] MEDS: FAMOTIDINE 20 MG/2 ML VIAL IV PUSH ×2 (08:34→21:03)
[2022-11-20 08:58] LABS: Glucose Point of Care 224 mg/dl (65-105)
[2022-11-20] MEDS: INSULIN ASPART (*BKC) 100 UNITS/ML SUB-Q ×5 (09:01→16:55)
--- NOTE | 2022-11-20 09:27 | PM.IMCN ---
Assessment and Plan Assessment and plan (1) Morbid obesity: Code(s): E66.01 - Morbid (severe) obesity due to excess calories Status: Chronic (2) Ruptured appendicitis: Code(s): K35.32 - Acute appendicitis with perforation, localized peritonitis, and gangrene, without abscess Status: Acute (3) NAVARRO (obstructive sleep apnea): Code(s): G47.33 - Obstructive sleep apnea (adult) (pediatric) Status: Chronic (4) S/P gastric bypass: Code(s): Z98.84 - Bariatric surgery status Status: Chronic (5) DM w/o complication type II, uncontrolled: Code(s): E11.65 - Type 2 diabetes mellitus with hyperglycemia Status: Chronic (6) Tachycardia: Code(s): R00.0 - Tachycardia, unspecified Status: Acute (7) Anemia: Code(s): D64.9 - Anemia, unspecified Status: Acute Plan # ruptured appendicitis status post laparoscopic appendectomy and laparoscopic drainage of intra-abdominal abscess on 11/19/2022. Pain control with IV morphine as needed. # leukocytosis worsened today. Likely reactive from the surgery and procedure . Will get blood culture x2 today. Currently on Zosyn which will continue. Continue trended WBC and adjust antibiotics as needed. will get culture from the drainage fluid # Tachycardia could be pain related slowly improving. On IV fluid which will be continued until p.o. intake is up diane . Morphine is not working she states. Will place on hydromorphone p.r.n. # anemia: Mild noted to be anemic back in September as well. Will check iron panels vitamin B12 folic acid since she is post bypass she should be on iron supplementation. # DVT prophylaxis: enoxaparin # status post gastric bypass surgery 2016 # history of back surgery 2008 # GI prophylaxis on famotidine. # type 2 diabetes mellitus blood sugar trend reviewed. Continue sliding scale insulin A1c at 7.6 already on high-dose sliding scale will add basal bolus regimen weight based. Half dosing to begin with # code status full code HPI Data of Consult Consult date: 11/20/22 Requesting Physician: Axel Elaine MD Primary Care Provider: Kevin Noel MD Consult Narrative Narrative: Keely Vaca is a 41 year old female Past medical history of gastric bypass in 2016 tubal ligation and L4-L5 surgery in 2008 presented with severe abdominal pain yesterday found to have ruptured appendicitis. She underwent surgery and had appendectomy with drainage for abscess. She has drainage in right lower quadrant currently. Abdomen is sore no bowel movement or flat us. Denies any chest pain or shortness of breath. she denies any fever or chills. Hospice team consulted form perioperative medical management. Vitals were reviewed which shows tachycardia overnight. Serosanguineous drainage in the drainage bulb from right lower quadrant noted. Review of Systems Review of Systems: - CONSTITUTIONAL: Denies weight loss, fever and chills. - HEENT: Denies changes in vision and hearing - RESPIRATORY: Denies SOB and cough. - CV: Denies palpitations and CP. - GI: Reports abdominal pain, no nausea, vomiting and diarrhea. - : Denies dysuria and urinary frequency. - MSK: Denies myalgia and joint pain. - SKIN: Denies rash and pruritus. - NEUROLOGICAL: Denies headache and syncope. - PSYCHIATRIC: Denies recent changes in mood. Denies anxiety and depression. [facility] Past Medical History Medical History (Updated 11/20/22 @ 10:24 by Deonte Campos MD) Diabetes Morbid obesity Surgical History Surgical History (Updated 11/19/22 @ 17:03 by Axel Elaine MD) Gastric bypass status for obesity Social History Social History Social History: Smoking status: Never smoker Second hand tobacco smoke exposure: No Alcohol intake: current Drinks per week: 1 Alcohol use details: Occasionally Substance use: ne
[2022-11-20 11:49] LABS: Iron < 10 ug/dL (37-170)
[2022-11-20 12:10] LABS: Percent Iron Saturation < 4 % (20-50)
[2022-11-20 12:16] LABS: Glucose Point of Care 235 mg/dl (65-105)
--- NOTE | 2022-11-20 12:26 | WPDANESPN ---
Anes - Prog Note Post-Op Date/Time: 11/20/22 12:26 Vital Signs: Last Vital Signs Temp 36.7 C 11/20/22 01:32 Pulse 102 H 11/20/22 01:32 Resp 16 11/20/22 08:34 BP 133/68 11/20/22 07:00 Pulse Ox 93 11/20/22 08:34 O2 Del Method Room Air 11/20/22 08:34 O2 Flow Rate 2 11/19/22 20:02 Pain Score (VAS): 3 I/O: Intake & Output 11/19/22 11/20/22 11/20/22 23:59 07:59 15:59 Intake Total 1850 2450 610 Output Total 32 1320 65 Balance 1818 1130 545 Laboratory Tests 11/20/22 05:46 11/20/22 05:46 11/19/22 11/19/22 11/19/22 13:11 13:11 13:11 WBC 16.4 H RBC 4.76 Hgb 10.1 L Hct 33.8 L MCV 71.0 L MCH 21.2 L MCHC 29.9 L RDW 17.3 H Plt Count 377 H D MPV 10.9 H Immature Gran % (Auto) 4.1 H Neut % (Auto) 62.5 Lymph % (Auto) 24.4 [place] % (Auto) 8.1 Eos % (Auto) 0.3 Baso % (Auto) 0.6 Lymph # (Auto) 3.99 H [place] # (Auto) 1.3 H Eos # (Auto) 0.1 Baso # (Auto) 0.1 Abs Immat Gran (auto) 0.67 H Absolute Neuts (auto) 10.2 H Absolute Nucleated RBC 0.0 Nucleated RBC % 0.2 Platelet Estimate Slightly increased Large Platelets Present Poikilocytosis 1+ Anisocytosis 1+ Ovalocytes 1+ Redd Cells 1+ Schistocytes Rare Sodium 133 L Potassium 3.7 Chloride 102 Carbon Dioxide 16 L Anion Gap 15 BUN 6 L Creatinine 0.50 L Estim Creat Clear Calc 202 Estimated GFR > 60 Glucose 188 H POC Capillary Glucose Hemoglobin A1c 7.6 H Calcium 8.7 Iron TIBC % Saturation Ferritin Total Bilirubin 0.4 AST 20 ALT 14 Alkaline Phosphatase 135 H Total Protein 8.0 Albumin 3.8 Lipase 33 Vitamin B12 Folate Urine Color Urine Appearance Urine pH Ur Specific [place] Urine Protein Urine Glucose (UA) Urine Ketones Ur Blood (Man) Urine Nitrate Urine Bilirubin Urine Urobilinogen Leukocyte Esterase Rfl Influenza A (RT-PCR) Influenza B (RT-PCR) SARS-CoV-2 RNA (RT-PCR) 11/19/22 11/19/22 11/19/22 16:19 16:46 19:02 WBC RBC Hgb Hct MCV MCH MCHC RDW Plt Count MPV Immature Gran % (Auto) Neut % (Auto) Lymph % (Auto) [place] % (Auto) Eos % (Auto) Baso % (Auto) Lymph # (Auto) [place] # (Auto) Eos # (Auto) Baso # (Auto) Abs Immat Gran (auto) Absolute Neuts (auto) Absolute Nucleated RBC Nucleated RBC % Platelet Estimate Large Platelets Poikilocytosis Anisocytosis Ovalocytes Redd Cells Schistocytes Sodium Potassium Chloride Carbon Dioxide Anion Gap BUN Creatinine Estim Creat Clear Calc Estimated GFR Glucose POC Capillary Glucose 256 H 249 H Hemoglobin A1c Calcium Iron TIBC % Saturation Ferritin Total Bilirubin AST ALT Alkaline Phosphatase Total Protein Albumin Lipase Vitamin B12 Folate Urine Color Urine Appearance Urine pH Ur Specific [place] Urine Protein Urine Glucose (UA) Urine Ketones Ur Blood (Man) Urine Nitrate Urine Bilirubin Urine Urobilinogen Leukocyte Esterase Rfl Influenza A (RT-PCR) Negative Influenza B (RT-PCR) Negative SARS-CoV-2 RNA (RT-PCR) Negative 11/19/22 11/20/22 11/20/22 20:43 00:14 05:46 WBC 30.3 H RBC 4.58 Hgb 9.8 L Hct 33.0 L MCV 72.1 L MCH 21.4 L MCHC 29.7 L RDW 17.8 H Plt Count 358 MPV 10.8 H Immature Gran % (Auto) Neut % (Auto) Lymph % (Auto) [place] % (Auto) Eos % (Auto) Baso % (Auto) Lymph # (Auto) [place] # (Auto) Eos # (Auto) Baso # (Auto) Abs Immat Gran (auto) Absolute Neuts (auto) Absolute Nucleated RBC Nucleated RBC % Platelet Estimate Large Platelets Poikilocytosis Anisocytosis Ovalocytes Redd Cells Schistocytes Sod
[2022-11-20 12:35] LABS: Folic Acid 7.7 ng/mL (2.76->20)
[2022-11-20 12:51] LABS: Add Urine Microscopic? YES; Appearance Urine Cloudy (Clear); Bilirubin Urine 2+ (Negative); Blood Urine 3+ (Negative); Color Urine Yellow (Yellow); Glucose Urine UA 2+ mg/dL (Negative); Ketones Urine 3+ mg/dL (Negative); Leukocyte Esterase Ur Negative LEU/UL (NEGATIVE); Nitrate Urine Negative (Negative); Protein Urine 1+ mg/dL (Negative); Specific Grav Ur 1.025 (1.001-1.035); Urobilinogen Urine 0.2 mg/dL (<2.0); pH Urine 5.5 (5.0-9.0)
[2022-11-20 13:12] LABS: Mucus Urine Rare /lpf; RBC Urine >75 /hpf (0-2); Squamous Epithelial Cell Urine Few /hpf (Few)
[2022-11-20 16:53] LABS: Glucose Point of Care 217 mg/dl (65-105)
[2022-11-20 21:51] LABS: Glucose Point of Care 174 mg/dl (65-105)
[2022-11-20] MEDS: HYDROcodone/acetaminophen (*CRX) 10-325 MG TABLET 1 TAB PO (23:55)
[2022-11-21] MEDS: MORPHINE SULFATE (*CRX) 2 MG/ML INJ IV PUSH ×3 (03:09→21:48)
[2022-11-21] MEDS: IBUPROFEN IV 800 MG/200 ML 800 MG/200 ML BAG 400 MG IVPB (03:55)
[2022-11-21 05:56] LABS: Hematocrit 25.6 % (37.0-47.0); Hemoglobin 7.7 g/dL (12.0-15.0); Mean Corpuscular HGB Conc 30.1 g/dl (32-36); Mean Corpuscular Hemoglobin 21.2 pg (26-34); Mean Corpuscular Volume 70.5 fl (80-100); Mean Platelet Volume 10.4 fl (7.4-10.4); Platelet Count Result 280 k/mm3 (150-375); Red Blood Count 3.63 M/mm3 (4.2-5.4); Red Cell Distribution Width 17.6 % (11.5-14.5); White Blood Count 25.2 K/mm3 (4.5-10.0)
[2022-11-21 06:00] VITALS: BP 105/47; PULSE 88; RESP 20; TEMP 36.2; O2SAT 98
[2022-11-21] MEDS: HYDROcodone/acetaminophen (*CRX) 10-325 MG TABLET 1 TAB PO ×2 (06:10→12:39)
[2022-11-21 06:14] LABS: Alanine Aminotransferase 13 U/L (6-35); Albumin Level 2.6 g/dL (3.5-5.1); Alkaline Phosphatase 80 U/L (38-126); Anion Gap 7 mmol/L (8-16); Aspartate Amino Transferase 16 U/L (14-36); Bilirubin,Total 0.3 mg/dL (0.2-1.3); Blood Urea Nitrogen 16 mg/dL (7-17); Carbon Dioxide 24 mmol/L (22-30); Chloride 100 mmol/L (98-107); Estimated CRCL calculation 133 ml/min; Estimated Glomerular Filt Rate > 60; Glucose 149 mg/dL (65-110); Magnesium 1.6 mg/dL (1.6-2.3); Potassium 3.2 mmol/L (3.4-5.0); Sodium 131 mmol/L (137-145)
[2022-11-21 07:30] LABS: Band Neutrophils Percent 17 % (0-6); Lymphocytes Absolute Manual 2.01 K/mm3 (1.1-4.5); Monocytes Absolute Manual 0.75 K/mm3 (0.1-0.90); Monocytes Percent Manual 3 % (3-9); Neutrophils Absolute Manual 22.42 K/mm3 (1.7-7.2); Neutrophils Percent Manual 72 % (46-73); Platelet Estimate Adequate (Adequate); Total Cells Counted 100
[2022-11-21 07:31] LABS: Ovalocytes 1+ (NORMAL); Schistocytes None Seen (NORMAL)
[2022-11-21 07:32] LABS: Burr Cells 2+ (NORMAL); Microcytosis 1+ (NORMAL)
[2022-11-21 08:04] LABS: Glucose Point of Care 149 mg/dl (65-105)
[2022-11-21] MEDS: INSULIN ASPART (*BKC) 100 UNITS/ML SUB-Q ×3 (08:29→17:22)
[2022-11-21] MEDS: INSULIN GLARGINE (*BKC) 100 UNITS/ML 12 UNITS SUB-Q (08:29)
[2022-11-21] MEDS: PANTOPRAZOLE 40 MG TABLET PO (08:38)
[2022-11-21] MEDS: ENOXAPARIN 40 MG/0.4 ML SYRINGE SUB-Q (08:38)
[2022-11-21] MEDS: NYSTATIN 100,000 UNITS/ML SUSP 5 ML ORAL.SUSP PO ×4 (08:38→21:00)
[2022-11-21] MEDS: POTASSIUM CHLORIDE 20 MEQ TABLET 40 MEQ PO (09:25)
[2022-11-21 10:00] VITALS: BP 121/66; PULSE 94; RESP 20; TEMP 36.1; O2SAT 93
--- NOTE | 2022-11-21 10:24 | PM.PNGS ---
Progress Note: A&P Assessment and Plan (1) Ruptured appendicitis: Code(s): K35.32 - Acute appendicitis with perforation, localized peritonitis, and gangrene, without abscess Status: Acute Assessment and Plan: improving. Patient unable to ambulate as per her own admission, her protuberant abdomen pulls on her trocar site incisions and causes severe pain. She is not feel dizzy or unstable, nor does she feel she is too weak but is not really ambulating very much due to this pain. Otherwise she is doing quite well. Continue IV Zosyn antibiotics. Advanced to low-fiber diet. Supplement potassium. Stop IV fluids. Pain noted above should improve in the next day or 2. (2) Anemia: Code(s): D64.9 - Anemia, unspecified Status: Chronic Assessment and Plan: Patient noted as an outpatient before her present illness that she was anemic and was to be investigated but then developed ruptured appendicitis as noted above. Current anemia not a significant drop from preop H&H. Continue to monitor closely. Etiology not clear. (3) DM w/o complication type II, uncontrolled: Code(s): E11.65 - Type 2 diabetes mellitus with hyperglycemia Status: Chronic Assessment and Plan: Blood sugars improved. Subjective Subjective Date/Time Seen: 11/21/22 10:24 Post Op day: 2 Patient reports: feels better, pain is less, tolerating liquids well and afebrile Exam Const: General: comfortable and no acute distress; No confusion Orientation/consciousness: patient oriented x3 and No confusion Resp: Effort & Inspection: normal respiratory effort Auscultation: clear to auscultation bilaterally Cardio: Rate: regular rate Rhythm: regular rhythm GI: Inspection: non-distended, incision ( Dry and healing well) and obesity GI Palp: Yes Soft to palpation, Yes Tenderness to palpation present (GI), No Guarding due to palpation present (GI) and No Rebound tenderness present Auscultation: normal bowel sounds Neuro: General: patient oriented x3, no focal motor deficits and No confusion Extrem: General: no calf tenderness and no edema Psych: Affect: normal affect Insight: Good insight present (Psych) Judgement: Good judgement present (Psych) Objective Data Vital Signs Vital Signs: Vital Signs - 24 hr 11/20/22 12:23 11/20/22 17:41 11/20/22 22:57 Temperature 36.9 C 36.4 C L 36.2 C L Pulse Rate 110 H 112 H 104 H Respiratory Rate 18 18 18 Blood Pressure 121/67 116/60 126/73 Pulse Oximetry 94 96 97 11/21/22 06:00 11/21/22 10:00 Temperature 36.2 C L 36.1 C L Pulse Rate 88 94 Respiratory Rate 20 20 Blood Pressure 105/47 L 121/66 Pulse Oximetry 98 93 Intake/Output Intake/Output: Intake & Output 11/18/22 11/19/22 11/20/22 11/21/22 23:59 23:59 23:59 23:59 Intake Total 1950 5280 1260 Output Total 32 1510 840 Balance 1918 3770 420 Meds/Results Medications: Active Medications Generic Name Dose Route Start Last Admin Trade Name Freq PRN Reason Stop Dose Admin Acetaminophen 500 mg 11/19/22 19:48 Acetaminophen 500 Mg Tablet PO Q6H PRN Mild Pain (1-3) or Fever Hydrocodone Bitart/Acetaminophen 1 tab 11/20/22 19:32 Hydrocodone/Acetaminophen (*Crx) 5-325 Mg Tablet PO Q4H PRN Pain Rated 4-6 Hydrocodone Bitart/Acetaminophen 1 tab 11/20/22 19:32 11/21/22 06:10 Hydrocodone/Acetaminophen (*Crx) 10-325 Mg Tablet PO 1 tab Q6H PRN Administration Pain Rated 7-10 Dextrose 12.5 gm 11/19/22 19:48 Dextrose 50% 25 Gm/50 Ml Syringe IV PUSH PRN PRN Hypoglycemia Protocol Enoxaparin Sodium 40 mg 11/20/22 09:00 11/21/22 08:38 Enoxaparin 40 Mg/0.4 Ml Syringe SUB-Q 40 mg DAILY MIYA Administration Glucagon 1 mg 11/19/22 19:48 Glucagon For Inj 1 Mg Vial IM PRN PRN Hypoglycemia Protocol Glucose 15 gm 11/19/22 19:48 Glucose Oral Gel 15 Gm Of Glucse In 37.5 Gm Tube PO PRN PRN Hypoglycem
[2022-11-21 11:51] LABS: Glucose Point of Care 167 mg/dl (65-105)
[2022-11-21 13:50] VITALS: BP 107/63; PULSE 103; RESP 18; TEMP 36.6; O2SAT 92
[2022-11-21 16:54] LABS: Glucose Point of Care 154 mg/dl (65-105)
[2022-11-21] MEDS: POTASSIUM CHLORIDE 20 MEQ TABLET.ER 40 MEQ PO (17:22)
--- NOTE | 2022-11-21 18:04 | PM.IMPN ---
Progress Note: A&P Assessment and Plan (1) Morbid obesity: Code(s): E66.01 - Morbid (severe) obesity due to excess calories Status: Chronic (2) Ruptured appendicitis: Code(s): K35.32 - Acute appendicitis with perforation, localized peritonitis, and gangrene, without abscess Status: Acute (3) NAVARRO (obstructive sleep apnea): Code(s): G47.33 - Obstructive sleep apnea (adult) (pediatric) Status: Chronic (4) S/P gastric bypass: Code(s): Z98.84 - Bariatric surgery status Status: Chronic (5) DM w/o complication type II, uncontrolled: Code(s): E11.65 - Type 2 diabetes mellitus with hyperglycemia Status: Chronic (6) Tachycardia: Code(s): R00.0 - Tachycardia, unspecified Status: Acute (7) Anemia: Code(s): D64.9 - Anemia, unspecified Status: Chronic Plan # ruptured appendicitis status post laparoscopic appendectomy and laparoscopic drainage of intra-abdominal abscess on 11/19/2022. Pain control with IV morphine as needed. # leukocytosis slightly improved today. Likely reactive from the surgery and procedure . Blood cultures no growth today. Currently on Zosyn which will continue. Continue trended WBC and adjust antibiotics as needed. Culture from the drainage fluid pending # Tachycardia could be pain related slowly improving. On IV fluid which will be continued until p.o. intake is up diane . Morphine is not working she states. Will place on hydromorphone p.r.n. # anemia: Mild noted to be anemic back in September as well. Iron profile low iron saturation will give IV Venofer. Vitamin B12 folic acid since she is post bypass she should be on iron supplementation. # DVT prophylaxis: enoxaparin # status post gastric bypass surgery 2016 # history of back surgery 2008 # GI prophylaxis on famotidine. # type 2 diabetes mellitus blood sugar trend reviewed. Continue sliding scale insulin A1c at 7.6 already on high-dose sliding scale will add basal bolus regimen weight based. Half dosing to begin with. Blood sugar trend reviewed and at goal currently. A1c at 7.6 # code status full code Subjective Date/time seen: 11/21/22 18:04 Interval history: Feels better. Remains afebrile. Discussed lab findings. Review of Systems Review of Systems: All systems reviewed & are unremarkable except as noted in HPI and below Exam Narrative: GENERAL: patient with morbid obesity, not in acute distress HEAD: Normocephalic, atraumatic. EYES: PERRLA and EOMI. ENT: Nares clear, no rhinorrhea or epistaxis.? Mucous membranes moist. NECK: Supple. CHEST: Clear to auscultation.? No respiratory distress. HEART: tachycardic, regular rhythm..? No murmur heard.? Normal peripheral pulses. ABDOMEN: Soft, Mildly tender diffusely. Dressing on right lower quadrant present with drainage tube coming out to a bulb with serosanguineous drainage in the bulb. Bowel sound normoactive, nondistended EXTREMITIES: Normal range of motion.? No edema. SKIN: Warm, dry, no rash. NEURO: No focal deficits.? Alert and oriented x3. Objective Data Vital Signs Vital Signs: Vital Signs - 24 hr 11/20/22 22:57 11/21/22 06:00 11/21/22 10:00 Temperature 97.2 F L 97.1 F L 97.0 F L Pulse Rate 104 H 88 94 Respiratory Rate 18 20 20 Blood Pressure 126/73 105/47 L 121/66 Pulse Oximetry 97 98 93 Oxygen Delivery 11/21/22 08:40 11/21/22 13:50 Temperature 97.8 F Pulse Rate 103 H Respiratory Rate 18 Blood Pressure 107/63 Pulse Oximetry 92 Oxygen Delivery Room Air Intake/Output Intake/Output: Intake & Output 11/18/22 11/19/22 11/20/22 11/21/22 23:59 23:59 23:59 23:59 Intake Total 1950 5280 1550 Output Total 32 1510 870 Balance 8125 5911 173 Meds/Results Medications: Active Medications Generic Name Dose Route Start Last Admin Trade Name Freq PRN Reason Stop Dose Admin Acetaminophen 500 mg 11/19/22 19:48 Acetaminophen 500 Mg Tablet PO Q6H SD
[2022-11-21] MEDS: IRON SUCROSE COMPLEX 200 MG in SODIUM CHLORIDE 0.9% IV 50 ML 120 MG IVPB (19:00)
[2022-11-21] MEDS: HYDROcodone/acetaminophen (*CRX) 5-325 MG TABLET 1 TAB PO (19:06)
[2022-11-21 21:55] LABS: Glucose Point of Care 146 mg/dl (65-105)
[2022-11-21 22:00] VITALS: BP 120/72; PULSE 112; RESP 16; TEMP 36.4; O2SAT 94
[2022-11-22] MEDS: HYDROcodone/acetaminophen (*CRX) 10-325 MG TABLET 1 TAB PO ×2 (02:12→10:12)
[2022-11-22 06:15] VITALS: BP 136/68; PULSE 107; RESP 16; TEMP 36.6; O2SAT 92
[2022-11-22 06:19] LABS: Hemoglobin 8.1 g/dL (12.0-15.0); Mean Corpuscular Hemoglobin 20.9 pg (26-34); Mean Corpuscular Volume 69.6 fl (80-100); Mean Platelet Volume 10.7 fl (7.4-10.4); Platelet Count Result 329 k/mm3 (150-375); Red Blood Count 3.88 M/mm3 (4.2-5.4); Red Cell Distribution Width 17.7 % (11.5-14.5); White Blood Count 25.9 K/mm3 (4.5-10.0)
[2022-11-22 06:45] LABS: Anion Gap 6 mmol/L (8-16); Blood Urea Nitrogen 12 mg/dL (7-17); Calcium 8.2 mg/dL (8.4-10.2); Carbon Dioxide 26 mmol/L (22-30); Chloride 100 mmol/L (98-107); Estimated CRCL calculation 173 ml/min; Estimated Glomerular Filt Rate > 60; Glucose 153 mg/dL (65-110); Potassium 3.1 mmol/L (3.4-5.0); Sodium 132 mmol/L (137-145)
[2022-11-22 08:33] LABS: Glucose Point of Care 137 mg/dl (65-105)
[2022-11-22] MEDS: INSULIN ASPART (*BKC) 100 UNITS/ML SUB-Q ×4 (09:55→17:33)
[2022-11-22] MEDS: POTASSIUM CHLORIDE 20 MEQ TABLET 40 MEQ PO (09:55)
[2022-11-22] MEDS: POTASSIUM CHLORIDE 20 MEQ TABLET.ER 40 MEQ PO ×2 (09:56→17:32)
[2022-11-22] MEDS: NYSTATIN 100,000 UNITS/ML SUSP 5 ML ORAL.SUSP PO ×4 (09:56→20:18)
[2022-11-22] MEDS: INSULIN GLARGINE (*BKC) 100 UNITS/ML 12 UNITS SUB-Q (09:56)
[2022-11-22] MEDS: PANTOPRAZOLE 40 MG TABLET PO (09:56)
[2022-11-22] MEDS: ENOXAPARIN 40 MG/0.4 ML SYRINGE SUB-Q (09:56)
--- NOTE | 2022-11-22 12:17 | PM.PNGS ---
Progress Note: A&P Assessment and Plan (1) Ruptured appendicitis: Code(s): K35.32 - Acute appendicitis with perforation, localized peritonitis, and gangrene, without abscess Status: Acute Assessment and Plan: Improving slowly. Antibiotics have been changed to imipenem. Advance to diabetic diet. Encourage ambulation as pain allows. Making progress. (2) DM w/o complication type II, uncontrolled: Code(s): E11.65 - Type 2 diabetes mellitus with hyperglycemia Status: Chronic Assessment and Plan: Blood sugars improved Subjective Subjective Date/Time Seen: 11/22/22 12:17 Post Op day: 3 Patient reports: feels better, pain is less, no bowel movement and afebrile Exam GI: Inspection: incision (All incisions healing well, cloudy serous fluid in KEITH) and obesity GI Palp: Yes abdominal tenderness, Yes Soft to palpation, No Hernia present and No Palpable mass present Auscultation: Hypoactive bowel sounds present Objective Data Vital Signs Vital Signs: Vital Signs - 24 hr 11/21/22 13:50 11/21/22 22:00 11/22/22 06:15 Temperature 36.6 C 36.4 C 36.6 C Pulse Rate 103 H 112 H 107 H Respiratory Rate 18 16 16 Blood Pressure 107/63 120/72 136/68 Pulse Oximetry 92 94 92 Intake/Output Intake/Output: Intake & Output 11/19/22 11/20/22 11/21/22 11/22/22 23:59 23:59 23:59 23:59 Intake Total 1950 5280 1900 940 Output Total 32 1510 870 510 Balance 1918 3770 1030 430 Meds/Results Medications: Active Medications Generic Name Dose Route Start Last Admin Trade Name Freq PRN Reason Stop Dose Admin Acetaminophen 500 mg 11/19/22 19:48 Acetaminophen 500 Mg Tablet PO Q6H PRN Mild Pain (1-3) or Fever Hydrocodone Bitart/Acetaminophen 1 tab 11/20/22 19:32 11/21/22 19:06 Hydrocodone/Acetaminophen (*Crx) 5-325 Mg Tablet PO 1 tab Q4H PRN Administration Pain Rated 4-6 Hydrocodone Bitart/Acetaminophen 1 tab 11/20/22 19:32 11/22/22 10:12 Hydrocodone/Acetaminophen (*Crx) 10-325 Mg Tablet PO 1 tab Q6H PRN Administration Pain Rated 7-10 Dextrose 12.5 gm 11/19/22 19:48 Dextrose 50% 25 Gm/50 Ml Syringe IV PUSH PRN PRN Hypoglycemia Protocol Enoxaparin Sodium 40 mg 11/20/22 09:00 11/22/22 09:56 Enoxaparin 40 Mg/0.4 Ml Syringe SUB-Q 40 mg DAILY MIYA Administration Glucagon 1 mg 11/19/22 19:48 Glucagon For Inj 1 Mg Vial IM PRN PRN Hypoglycemia Protocol Glucose 15 gm 11/19/22 19:48 Glucose Oral Gel 15 Gm Of Glucse In 37.5 Gm Tube PO PRN PRN Hypoglycemia Protocol Hydromorphone HCl 1 mg 11/20/22 10:21 Hydromorphone Hcl Inj (*Crx) 1 Mg/Ml Syr IV PUSH Q6H PRN Pain 7-10 IF NPO Dextrose 1,000 mls @ 100 mls/hr 11/19/22 19:48 Dextrose 5% 1,000 Ml IVPB PRN PRN Hypoglycemia Protocol Ibuprofen 800 mg in 200 mls @ 400 mls/hr 11/21/22 08:38 Caldolor 800 Mg/200 Ml IVPB Q6H PRN Mild Pain (1-3) or Headache Imipenem/Cilastatin Sodium 500 mg in 100 mls @ 300 mls/hr 11/22/22 12:15 Primaxin 500 Mg/Ns 100 Ml IVPB Q6HR [facility] Insulin Aspart 4 - 8 units 11/20/22 08:00 11/22/22 09:48 Insulin Aspart (*Bkc) 100 Units/Ml SUB-Q Not Given TIDWM [facility] Protocol Insulin Aspart 5 units 11/20/22 12:00 11/22/22 09:55 Insulin Aspart (*Bkc) 100 Units/Ml SUB-Q 5 units TIDWM MIYA Administration Insulin Glargine 12 units 11/21/22 09:00 11/22/22 09:56 Insulin Glargine (*Bkc) 100 Units/Ml SUB-Q 12 units DAILY MIYA Administration Morphine Sulfate 2 mg 11/19/22 19:48 11/21/22 21:48 Morphine Sulfate (*Crx) 2 Mg/Ml Inj IV PUSH 2 mg Q2H PRN Administration Pain Rated 4-6 Naloxone HCl 0.1 mg 11/19/22 19:48 Naloxone Hcl 0.4 Mg/Ml Vial IV PUSH Q2M PRN Opiate Reversal Nystatin 5 ml 11/20/22 09:00 11/22/22 09:56 Nystatin 100,000 Units/Ml Susp 5 Ml Oral.Susp PO 5 ml QID MIYA Administration P
[2022-11-22 12:19] LABS: Glucose Point of Care 230 mg/dl (65-105)
--- NOTE | 2022-11-22 15:04 | PM.IMPN ---
Progress Note: A&P Assessment and Plan (1) Morbid obesity: Code(s): E66.01 - Morbid (severe) obesity due to excess calories Status: Chronic (2) Ruptured appendicitis: Code(s): K35.32 - Acute appendicitis with perforation, localized peritonitis, and gangrene, without abscess Status: Acute (3) NAVARRO (obstructive sleep apnea): Code(s): G47.33 - Obstructive sleep apnea (adult) (pediatric) Status: Chronic (4) S/P gastric bypass: Code(s): Z98.84 - Bariatric surgery status Status: Chronic (5) DM w/o complication type II, uncontrolled: Code(s): E11.65 - Type 2 diabetes mellitus with hyperglycemia Status: Chronic (6) Tachycardia: Code(s): R00.0 - Tachycardia, unspecified Status: Acute (7) Anemia: Code(s): D64.9 - Anemia, unspecified Status: Chronic Plan # ruptured appendicitis status post laparoscopic appendectomy and laparoscopic drainage of intra-abdominal abscess on 11/19/2022. Pain control with IV morphine as needed. # leukocytosis slightly improved but is still persistent. Will change antibiotic to imipenem today from Zosyn. If still persistent may need to rescan to see any other source. Blood cultures no growth. Culture from the drainage fluid pending # Tachycardia could be pain related slowly improving. On IV fluid which will be continued until p.o. intake is up diane . Morphine is not working she states. Will place on hydromorphone p.r.n. # anemia: Mild noted to be anemic back in September as well. Iron profile low iron saturation IV Venofer received. Vitamin B12 folic acid since she is post bypass she should be on iron supplementation. # DVT prophylaxis: enoxaparin # status post gastric bypass surgery 2016 # history of back surgery 2008 # GI prophylaxis on famotidine. # type 2 diabetes mellitus blood sugar trend reviewed.Continue sliding scale insulin A1c at 7.6 already on high-dose sliding scale will add basal bolus regimen weight based. Half dosing to begin with. Blood sugar trend reviewed and at goal currently. A1c at 7.6 # code status full code Subjective Date/time seen: 11/22/22 15:04 Interval history: No overnight events. Shortness in her right lower quadrant. Drain is reviewed. Has not had any bowel movement. Remains afebrile. Labs reviewed. Review of Systems Review of Systems: All systems reviewed & are unremarkable except as noted in HPI and below Exam Narrative: GENERAL: patient with morbid obesity, not in acute distress HEAD: Normocephalic, atraumatic. EYES: PERRLA and EOMI. ENT: Nares clear, no rhinorrhea or epistaxis.? Mucous membranes moist. NECK: Supple. CHEST: Clear to auscultation.? No respiratory distress. HEART: tachycardic, regular rhythm..? No murmur heard.? Normal peripheral pulses. ABDOMEN: Soft, Mildly tender diffusely. Dressing on right lower quadrant present with drainage tube coming out to a bulb with serosanguineous drainage in the bulb. Bowel sound normoactive, nondistended EXTREMITIES: Normal range of motion.? No edema. SKIN: Warm, dry, no rash. NEURO: No focal deficits.? Alert and oriented x3. Objective Data Vital Signs Vital Signs: Vital Signs - 24 hr 11/21/22 22:00 11/22/22 06:15 Temperature 97.6 F 97.9 F Pulse Rate 112 H 107 H Respiratory Rate 16 16 Blood Pressure 120/72 136/68 Pulse Oximetry 94 92 Intake/Output Intake/Output: Intake & Output 11/19/22 11/20/22 11/21/22 11/22/22 23:59 23:59 23:59 23:59 Intake Total 1950 5280 1900 1900 Output Total 32 1510 870 510 Balance 1918 3770 1030 1390 Meds/Results Medications: Active Medications Generic Name Dose Route Start Last Admin Trade Name Freq PRN Reason Stop Dose Admin Acetaminophen 500 mg 11/19/22 19:48 Acetaminophen 500 Mg Tablet PO Q6H PRN Mild Pain (1-3) or Fever Hydrocodone Bitart/Acetaminophen 1 tab 11/20/22 19:32 11/21/22 19:06 Hydrocodone/Acetaminophen
[2022-11-22] MEDS: MORPHINE SULFATE (*CRX) 2 MG/ML INJ IV PUSH ×2 (16:02→20:37)
[2022-11-22] MEDS: polyethylene glycoL 3350 17 GM POWD.PACK PO (16:02)
[2022-11-22 17:18] LABS: Glucose Point of Care 144 mg/dl (65-105)
[2022-11-22 20:13] LABS: Glucose Point of Care 185 mg/dl (65-105)
[2022-11-22 21:51] VITALS: BP 124/57; PULSE 115; RESP 16; TEMP 37.1; O2SAT 93
[2022-11-23] MEDS: HYDROcodone/acetaminophen (*CRX) 10-325 MG TABLET 1 TAB PO (00:46)
[2022-11-23 01:53] VITALS: BP 126/66; PULSE 111; RESP 16; TEMP 36.6; O2SAT 93
[2022-11-23 05:44] LABS: Basophils Absolute Auto 0.1 K/mm3 (0.0-0.1); Basophils Percent Auto 0.7 % (0.2-1.2); Eosinophils Absolute Auto 0.1 K/mm3 (0-0.3); Eosinophils Percent Auto 0.6 % (0-4.4); Hematocrit 27.5 % (37.0-47.0); Hemoglobin 8.2 g/dL (12.0-15.0); Immature Granulocyte Absolute 2.06 K/mm3 (0.00-0.031); Immature Granulocyte Percent A 10.6 % (0-0.5); Lymphocytes Absolute Auto 3.28 K/mm3 (0.9-3.2); Lymphocytes Percent Auto 16.9 % (18.3-44.2); Mean Corpuscular HGB Conc 29.8 g/dl (32-36); Mean Corpuscular Hemoglobin 21.4 pg (26-34); Mean Corpuscular Volume 71.6 fl (80-100); Mean Platelet Volume 10.8 fl (7.4-10.4); Monocytes Absolute Auto 1.8 K/mm3 (0.1-0.6); Monocytes Percent Auto 9.4 % (2.6-8.5); Neutrophils Percent Auto 61.8 % (45.5-73.1); Nucleated Red Blood Cells Perc 0.2 % (0.0-0.2); Platelet Count Result 358 k/mm3 (150-375); Red Blood Count 3.84 M/mm3 (4.2-5.4); Red Cell Distribution Width 17.6 % (11.5-14.5); White Blood Count 19.4 K/mm3 (4.5-10.0)
[2022-11-23 05:54] LABS: Anion Gap 3 mmol/L (8-16); Blood Urea Nitrogen 8 mg/dL (7-17); Calcium 8.2 mg/dL (8.4-10.2); Carbon Dioxide 29 mmol/L (22-30); Chloride 98 mmol/L (98-107); Estimated CRCL calculation 247 ml/min; Estimated Glomerular Filt Rate > 60; Glucose 180 mg/dL (65-110); Potassium 3.6 mmol/L (3.4-5.0); Sodium 130 mmol/L (137-145)
[2022-11-23 06:00] VITALS: BP 108/58; PULSE 106; RESP 16; TEMP 36.4; O2SAT 94
[2022-11-23 07:46] LABS: Anisocytosis 1+ (NORMAL); Hypochromasia 1+ (NORMAL); Ovalocytes 1+ (NORMAL); Platelet Estimate Adequate (Adequate); Schistocytes None Seen (NORMAL)
[2022-11-23] MEDS: INSULIN GLARGINE (*BKC) 100 UNITS/ML 12 UNITS SUB-Q (08:00)
[2022-11-23] MEDS: NYSTATIN 100,000 UNITS/ML SUSP 5 ML ORAL.SUSP PO ×4 (08:04→20:36)
[2022-11-23] MEDS: POTASSIUM CHLORIDE 20 MEQ TABLET.ER 40 MEQ PO ×2 (08:04→16:42)
[2022-11-23] MEDS: polyethylene glycoL 3350 17 GM POWD.PACK PO (08:05)
[2022-11-23] MEDS: ENOXAPARIN 40 MG/0.4 ML SYRINGE SUB-Q (08:05)
[2022-11-23] MEDS: INSULIN ASPART (*BKC) 100 UNITS/ML SUB-Q ×4 (08:05→16:47)
[2022-11-23] MEDS: PANTOPRAZOLE 40 MG TABLET PO (08:05)
[2022-11-23] MEDS: MORPHINE SULFATE (*CRX) 2 MG/ML INJ IV PUSH ×3 (08:14→16:40)
[2022-11-23 08:28] LABS: Glucose Point of Care 193 mg/dl (65-105)
--- NOTE | 2022-11-23 10:37 | PM.IMPN ---
Progress Note: A&P Assessment and Plan (1) Morbid obesity: Code(s): E66.01 - Morbid (severe) obesity due to excess calories Status: Chronic (2) Ruptured appendicitis: Code(s): K35.32 - Acute appendicitis with perforation, localized peritonitis, and gangrene, without abscess Status: Acute (3) NAVARRO (obstructive sleep apnea): Code(s): G47.33 - Obstructive sleep apnea (adult) (pediatric) Status: Chronic (4) S/P gastric bypass: Code(s): Z98.84 - Bariatric surgery status Status: Chronic (5) DM w/o complication type II, uncontrolled: Code(s): E11.65 - Type 2 diabetes mellitus with hyperglycemia Status: Chronic (6) Tachycardia: Code(s): R00.0 - Tachycardia, unspecified Status: Acute (7) Anemia: Code(s): D64.9 - Anemia, unspecified Status: Chronic Plan # ruptured appendicitis status post laparoscopic appendectomy and laparoscopic drainage of intra-abdominal abscess on 11/19/2022. Pain control with IV morphine as needed. # leukocytosis slightly improved but is still persistent. Will change antibiotic to imipenem today from Zosyn. If still persistent may need to rescan to see any other source. Blood cultures no growth. Culture from the drainage fluid pending Still persistent leukocytosis and pain in right lower quadrant. Agree with getting CT scan to further evaluate for possibility of undrained abscesses # Tachycardia could be pain related slowly improving. On IV fluid which will be continued until p.o. intake is up diane . Morphine is not working she states. Will place on hydromorphone p.r.n. # anemia: Mild noted to be anemic back in September as well. Iron profile low iron saturation IV Venofer received. Vitamin B12 folic acid since she is post bypass she should be on iron supplementation. # DVT prophylaxis: enoxaparin # status post gastric bypass surgery 2016 # history of back surgery 2008 # GI prophylaxis on famotidine. # type 2 diabetes mellitus blood sugar trend reviewed.Continue sliding scale insulin A1c at 7.6 already on high-dose sliding scale will add basal bolus regimen weight based. Half dosing to begin with. Blood sugar trend reviewed and at goal currently. A1c at 7.6 # code status full code Subjective Date/time seen: 11/23/22 10:37 Interval history: No overnight events. has not had any bowel movement yet. Still has some pain in her right lower quadrant. Drain in place. Remains afebrile but has a mild tachycardia. Labs were reviewed. Plans noted to get a repeat CT scan Review of Systems Review of Systems: All systems reviewed & are unremarkable except as noted in HPI and below Exam Narrative: GENERAL: patient with morbid obesity, not in acute distress HEAD: Normocephalic, atraumatic. EYES: PERRLA and EOMI. ENT: Nares clear, no rhinorrhea or epistaxis.? Mucous membranes moist. NECK: Supple. CHEST: Clear to auscultation.? No respiratory distress. HEART: mildly tachycardic, regular rhythm..? No murmur heard.? Normal peripheral pulses. ABDOMEN: Soft, Mildly tender diffusely. Dressing on right lower quadrant present with drainage tube coming out to a bulb with serosanguineous drainage in the bulb. Bowel sound normoactive, nondistended EXTREMITIES: Normal range of motion.? No edema. SKIN: Warm, dry, no rash. NEURO: No focal deficits.? Alert and oriented x3. Objective Data Vital Signs Vital Signs: Vital Signs - 24 hr 11/22/22 21:51 11/23/22 01:53 11/23/22 06:00 Temperature 98.7 F 97.9 F 97.5 F L Pulse Rate 115 H 111 H 106 H Respiratory Rate 16 16 16 Blood Pressure 124/57 L 126/66 108/58 L Pulse Oximetry 93 93 94 Intake/Output Intake/Output: Intake & Output 11/20/22 11/21/22 11/22/22 11/23/22 23:59 23:59 23:59 23:59 Intake Total 5280 1900 2690 600 Output Total 6373 827 8135 Balance 3770 1030 1480 600 Meds/Results Medications: Active Medications Generic Name Dose Route S
--- NOTE | 2022-11-23 11:09 | PM.PNGS ---
Progress Note: A&P Assessment and Plan (1) Ruptured appendicitis: Code(s): K35.32 - Acute appendicitis with perforation, localized peritonitis, and gangrene, without abscess Status: Acute Assessment and Plan: Still tachycardic and does have a left shift on her CBC. Will get repeat CT scan today. She has some right upper quadrant pain laterally and just below her costal margin. Unsure what this is from. KEITH drain showing only serous fluid. She is eating and having bowel sounds. No bowel movement as yet. Encourage ambulation. Continue to follow labs and exam. Continue IV antibiotics, now with Primaxin. (2) Tachycardia: Code(s): R00.0 - Tachycardia, unspecified Status: Acute Assessment and Plan: Heart rate still about 110 (3) Anemia: Code(s): D64.9 - Anemia, unspecified Status: Chronic Assessment and Plan: A little better, received iron infusion. Subjective Subjective Date/Time Seen: 11/23/22 11:09 Post Op day: 4 Patient reports: still having pain (Having some right-sided pain near costal margin, lateral), tolerating a regular diet, no bowel movement and afebrile Exam Const: General: comfortable and no acute distress; No confusion Orientation/consciousness: patient oriented x3 and No confusion Resp: Effort & Inspection: normal respiratory effort Auscultation: clear to auscultation bilaterally Cardio: Rate: regular rate Rhythm: regular rhythm GI: Inspection: incision (Incisions dry and healing well, serous fluid per KEITH) and obesity GI Palp: Yes Soft to palpation, Yes Tenderness to palpation present (GI) (Right upper quadrant, lateral and above KEITH site), No Guarding due to palpation present (GI) and No Rebound tenderness present Auscultation: normal bowel sounds Neuro: General: patient oriented x3, no focal motor deficits and No confusion Extrem: General: no calf tenderness and no edema Psych: Affect: normal affect Insight: Good insight present (Psych) Judgement: Good judgement present (Psych) Objective Data Vital Signs Vital Signs: Vital Signs - 24 hr 11/22/22 21:51 11/23/22 01:53 11/23/22 06:00 Temperature 37.1 C 36.6 C 36.4 C L Pulse Rate 115 H 111 H 106 H Respiratory Rate 16 16 16 Blood Pressure 124/57 L 126/66 108/58 L Pulse Oximetry 93 93 94 Oxygen Delivery 11/23/22 08:00 Temperature Pulse Rate Respiratory Rate Blood Pressure Pulse Oximetry Oxygen Delivery Room Air Intake/Output Intake/Output: Intake & Output 11/20/22 11/21/22 11/22/22 11/23/22 23:59 23:59 23:59 23:59 Intake Total 5280 1900 2690 600 Output Total 4817 284 4872 Balance 3770 1030 1480 600 Meds/Results Medications: Active Medications Generic Name Dose Route Start Last Admin Trade Name Freq PRN Reason Stop Dose Admin Acetaminophen 500 mg 11/19/22 19:48 Acetaminophen 500 Mg Tablet PO Q6H PRN Mild Pain (1-3) or Fever Hydrocodone Bitart/Acetaminophen 1 tab 11/20/22 19:32 11/21/22 19:06 Hydrocodone/Acetaminophen (*Crx) 5-325 Mg Tablet PO 1 tab Q4H PRN Administration Pain Rated 4-6 Hydrocodone Bitart/Acetaminophen 1 tab 11/20/22 19:32 11/23/22 00:46 Hydrocodone/Acetaminophen (*Crx) 10-325 Mg Tablet PO 1 tab Q6H PRN Administration Pain Rated 7-10 Dextrose 12.5 gm 11/19/22 19:48 Dextrose 50% 25 Gm/50 Ml Syringe IV PUSH PRN PRN Hypoglycemia Protocol Enoxaparin Sodium 40 mg 11/20/22 09:00 11/23/22 08:05 Enoxaparin 40 Mg/0.4 Ml Syringe SUB-Q 40 mg DAILY MIYA Administration Glucagon 1 mg 11/19/22 19:48 Glucagon For Inj 1 Mg Vial IM PRN PRN Hypoglycemia Protocol Glucose 15 gm 11/19/22 19:48 Glucose Oral Gel 15 Gm Of Glucse In 37.5 Gm Tube PO PRN PRN Hypoglycemia Protocol Hydromorphone HCl 1 mg 11/20/22 10:21 Hydromorphone Hcl Inj (*Crx) 1 Mg/Ml Syr IV PUSH Q6H PRN Pain 7-10 IF NPO Dextrose 1,000 mls @ 100
[2022-11-23 12:05] LABS: Glucose Point of Care 193 mg/dl (65-105)
[2022-11-23 14:00] VITALS: BP 128/72; PULSE 112; RESP 20; TEMP 36.4; O2SAT 94
--- NOTE | 2022-11-23 16:02 | PC.NURSE ---
KEITH drain pulled and validated with charge nurse Nita Garcia RN
[2022-11-23 17:32] LABS: Glucose Point of Care 224 mg/dl (65-105)
[2022-11-23 20:51] LABS: Glucose Point of Care 178 mg/dl (65-105)
[2022-11-23 21:23] VITALS: BP 108/52; PULSE 100; RESP 16; TEMP 36.2; O2SAT 94
[2022-11-23] MEDS: ONDANSETRON INJ 4 MG/2 ML VIAL IV PUSH (23:04)
[2022-11-24] MEDS: ONDANSETRON INJ 4 MG/2 ML VIAL IV PUSH ×3 (05:07→13:38)
[2022-11-24 05:41] LABS: Basophils Absolute Auto 0.1 K/mm3 (0.0-0.1); Basophils Percent Auto 0.7 % (0.2-1.2); Eosinophils Absolute Auto 0.1 K/mm3 (0-0.3); Eosinophils Percent Auto 0.6 % (0-4.4); Hematocrit 27.7 % (37.0-47.0); Hemoglobin 8.2 g/dL (12.0-15.0); Immature Granulocyte Absolute 2.18 K/mm3 (0.00-0.031); Immature Granulocyte Percent A 12.2 % (0-0.5); Lymphocytes Absolute Auto 2.55 K/mm3 (0.9-3.2); Lymphocytes Percent Auto 14.3 % (18.3-44.2); Mean Corpuscular HGB Conc 29.6 g/dl (32-36); Mean Platelet Volume 10.5 fl (7.4-10.4); Neutrophils Absolute Auto 10.9 K/mm3 (1.3-6.7); Neutrophils Percent Auto 61.2 % (45.5-73.1); Nucleated Red Blood Cells Absolute Auto 0.2 K/mm3 (0.0-0.012); Platelet Count Result 346 k/mm3 (150-375); Red Cell Distribution Width 17.2 % (11.5-14.5); White Blood Count 17.8 K/mm3 (4.5-10.0)
[2022-11-24 05:48] LABS: Anion Gap 6 mmol/L (8-16); Blood Urea Nitrogen 7 mg/dL (7-17); Carbon Dioxide 30 mmol/L (22-30); Chloride 100 mmol/L (98-107); Estimated CRCL calculation 247 ml/min; Estimated Glomerular Filt Rate > 60; Glucose 179 mg/dL (65-110); Magnesium 1.9 mg/dL (1.6-2.3); Potassium 3.7 mmol/L (3.4-5.0); Sodium 136 mmol/L (137-145)
[2022-11-24 06:00] VITALS: BP 127/71; PULSE 100; RESP 16; TEMP 36.2; O2SAT 94
[2022-11-24 07:28] LABS: Anisocytosis 1+ (NORMAL); Hypochromasia 2+ (NORMAL); Ovalocytes 2+ (NORMAL); Platelet Estimate Adequate (Adequate)
[2022-11-24 07:29] LABS: Schistocytes None Seen (NORMAL)
[2022-11-24 08:45] LABS: Glucose Point of Care 206 mg/dl (65-105)
[2022-11-24] MEDS: INSULIN GLARGINE (*BKC) 100 UNITS/ML 12 UNITS SUB-Q (09:06)
[2022-11-24] MEDS: INSULIN ASPART (*BKC) 100 UNITS/ML SUB-Q ×5 (09:07→17:54)
[2022-11-24] MEDS: POTASSIUM CHLORIDE 20 MEQ TABLET.ER 40 MEQ PO ×2 (09:15→16:39)
[2022-11-24] MEDS: PANTOPRAZOLE 40 MG TABLET PO (09:15)
[2022-11-24] MEDS: polyethylene glycoL 3350 17 GM POWD.PACK PO (09:15)
[2022-11-24] MEDS: NYSTATIN 100,000 UNITS/ML SUSP 5 ML ORAL.SUSP PO ×4 (09:15→22:14)
[2022-11-24] MEDS: ENOXAPARIN 40 MG/0.4 ML SYRINGE SUB-Q (09:15)
[2022-11-24] MEDS: NEOMYCIN/POLYMYXIN/BACITRACIN OINTMENT 15 GM TUBE 1 APPLIC TOPICAL (09:16)
[2022-11-24 12:17] LABS: Glucose Point of Care 202 mg/dl (65-105)
--- NOTE | 2022-11-24 13:09 | PM.PNGS ---
Progress Note: A&P Assessment and Plan (1) Ruptured appendicitis: Code(s): K35.32 - Acute appendicitis with perforation, localized peritonitis, and gangrene, without abscess Status: Acute Assessment and Plan: I discussed the patient with Dr. Campos, hospitalist, regarding her slow improvement. I do do not feel the collections noted on her CT scan yesterday represent abscesses that need to be drained. Continue IV antibiotics. Heart rate is slowly improving. White blood cell count is decreasing. Making slow progress from peritonitis due to ruptured appendicitis. (2) Tachycardia: Code(s): R00.0 - Tachycardia, unspecified Status: Acute Assessment and Plan: Down to 100 per minute today (3) Anemia: Code(s): D64.9 - Anemia, unspecified Status: Chronic Assessment and Plan: stable (4) DM w/o complication type II, uncontrolled: Code(s): E11.65 - Type 2 diabetes mellitus with hyperglycemia Status: Chronic Assessment and Plan: sugars better controlled Subjective Subjective Date/Time Seen: 11/24/22 13:09 Post Op day: 5 Patient reports: still having pain ( right upper quadrant, costal margin, somewhat lateral), tolerating a regular diet, bowel movement ( several, somewhat loose) and afebrile Review of Systems Review of Systems: All systems reviewed & are unremarkable except as noted in HPI and below ( HPI) Exam Const: General: comfortable, no acute distress and obese; No confusion Nutritional Appearance: obese Orientation/consciousness: patient oriented x3 and No confusion GI: Inspection: non-distended and obesity GI Palp: Yes Soft to palpation, Yes Tenderness to palpation present (GI) ( upper abdomen, right more than left), No Guarding due to palpation present (GI) and No Rebound tenderness present Auscultation: normal bowel sounds Neuro: General: patient oriented x3, no focal motor deficits and No confusion Extrem: General: no calf tenderness and no edema Psych: Affect: normal affect Insight: Good insight present (Psych) Judgement: Good judgement present (Psych) Objective Data Vital Signs Vital Signs: Vital Signs - 24 hr 11/23/22 14:00 11/23/22 21:23 11/24/22 06:00 Temperature 36.4 C L 36.2 C L 36.2 C L Pulse Rate 112 H 100 100 Respiratory Rate 20 16 16 Blood Pressure 128/72 108/52 L 127/71 Pulse Oximetry 94 94 94 heart rate less tachycardic at 100 per minute Intake/Output Intake/Output: Intake & Output 11/21/22 11/22/22 11/23/22 11/24/22 23:59 23:59 23:59 23:59 Intake Total 1900 2690 1620 1220 Output Total 870 1210 670 900 Balance 1030 1480 950 320 Meds/Results Medications: Active Medications Generic Name Dose Route Start Last Admin Trade Name Freq PRN Reason Stop Dose Admin Acetaminophen 500 mg 11/19/22 19:48 Acetaminophen 500 Mg Tablet PO Q6H PRN Mild Pain (1-3) or Fever Hydrocodone Bitart/Acetaminophen 1 tab 11/20/22 19:32 11/21/22 19:06 Hydrocodone/Acetaminophen (*Crx) 5-325 Mg Tablet PO 1 tab Q4H PRN Administration Pain Rated 4-6 Hydrocodone Bitart/Acetaminophen 1 tab 11/20/22 19:32 11/23/22 00:46 Hydrocodone/Acetaminophen (*Crx) 10-325 Mg Tablet PO 1 tab Q6H PRN Administration Pain Rated 7-10 Dextrose 12.5 gm 11/19/22 19:48 Dextrose 50% 25 Gm/50 Ml Syringe IV PUSH PRN PRN Hypoglycemia Protocol Enoxaparin Sodium 40 mg 11/20/22 09:00 11/24/22 09:15 Enoxaparin 40 Mg/0.4 Ml Syringe SUB-Q 40 mg DAILY MIYA Administration Glucagon 1 mg 11/19/22 19:48 Glucagon For Inj 1 Mg Vial IM PRN PRN Hypoglycemia Protocol Glucose 15 gm 11/19/22 19:48 Glucose Oral Gel 15 Gm Of Glucse In 37.5 Gm Tube PO PRN PRN Hypoglycemia Protocol Hydromorphone HCl 1 mg 11/20/22 10:21 Hydromorphone Hcl Inj (*Crx) 1 Mg/Ml Syr IV PUSH Q6H PRN Pain 7-10 IF NPO Dextrose 1,000 mls @ 100 mls/hr
[2022-11-24 14:52] VITALS: BP 108/60; PULSE 97; RESP 18; TEMP 36.8; O2SAT 95
--- NOTE | 2022-11-24 15:22 | PM.IMPN ---
Progress Note: A&P Assessment and Plan (1) Morbid obesity: Code(s): E66.01 - Morbid (severe) obesity due to excess calories Status: Chronic (2) Ruptured appendicitis: Code(s): K35.32 - Acute appendicitis with perforation, localized peritonitis, and gangrene, without abscess Status: Acute (3) NAVARRO (obstructive sleep apnea): Code(s): G47.33 - Obstructive sleep apnea (adult) (pediatric) Status: Chronic (4) S/P gastric bypass: Code(s): Z98.84 - Bariatric surgery status Status: Chronic (5) DM w/o complication type II, uncontrolled: Code(s): E11.65 - Type 2 diabetes mellitus with hyperglycemia Status: Chronic (6) Tachycardia: Code(s): R00.0 - Tachycardia, unspecified Status: Acute (7) Anemia: Code(s): D64.9 - Anemia, unspecified Status: Chronic Plan # ruptured appendicitis status post laparoscopic appendectomy and laparoscopic drainage of intra-abdominal abscess on 11/19/2022. Pain control with IV morphine as needed. # leukocytosis slightly improved but is still persistent. Will change antibiotic to imipenem today from Zosyn. If still persistent may need to rescan to see any other source. Blood cultures no growth. Culture from the drainage fluid pending Still persistent leukocytosis and pain in right lower quadrant. Repeat CT scan 11/23/2022: Right anterior abdominal drainage catheter dislodged right paracolic gutter abscess decrease in size rim enhancing fluid collections at gastroesophageal junction and left adnexa. Generally increase inflammatory changes in the right abdominal mesentery. Discussed with general surgeon. Plan to treat that with IV antibiotics Leukocytosis slowly improving. Continue IV antibiotics as ordered # Tachycardia could be pain related slowly improving. On IV fluid which will be continued until p.o. intake is up diane . Morphine is not working she states. Will place on hydromorphone p.r.n. # anemia: Mild noted to be anemic back in September as well. Iron profile low iron saturation IV Venofer received. Vitamin B12 folic acid since she is post bypass she should be on iron supplementation. # DVT prophylaxis: enoxaparin # status post gastric bypass surgery 2016 # history of back surgery 2008 # GI prophylaxis on famotidine. # type 2 diabetes mellitus blood sugar trend reviewed.Continue sliding scale insulin A1c at 7.6 already on high-dose sliding scale will add basal bolus regimen weight based. Half dosing to begin with. Blood sugar trend reviewed and at goal currently. A1c at 7.6 # code status full code Subjective Date/time seen: 11/24/22 15:22 Interval history: No overnight events. She is having bowel movement now. Soreness in right upper and lower quadrant no nausea vomiting tolerating diet walking around. Discussed CT findings. Discussed with the surgeon. Drain is out Review of Systems Review of Systems: All systems reviewed & are unremarkable except as noted in HPI and below Exam Narrative: GENERAL: patient with morbid obesity, not in acute distress HEAD: Normocephalic, atraumatic. EYES: PERRLA and EOMI. ENT: Nares clear, no rhinorrhea or epistaxis.? Mucous membranes moist. NECK: Supple. CHEST: Clear to auscultation.? No respiratory distress. HEART: Regular rhythm and rate..? No murmur heard.? Normal peripheral pulses. ABDOMEN: Soft, Mildly tender diffusely. Dressing on right lower quadrant present EXTREMITIES: Normal range of motion.? No edema. SKIN: Warm, dry, no rash. NEURO: No focal deficits.? Alert and oriented x3. Objective Data Vital Signs Vital Signs: Vital Signs - 24 hr 11/23/22 21:23 11/24/22 06:00 11/24/22 14:52 Temperature 97.1 F L 97.2 F L 98.3 F Pulse Rate 100 100 97 Respiratory Rate 16 16 18 Blood Pressure 108/52 L 127/71 108/60 Pulse Oximetry 94 94 95 Intake/Output Intake/Output: Intake & Output 11/21/22 11/22/22 11/23/22 11/24/22 23:59 2
[2022-11-24 16:57] LABS: Glucose Point of Care 166 mg/dl (65-105)
[2022-11-24 20:00] VITALS: BP 110/53; PULSE 104; RESP 16; TEMP 36.3; O2SAT 94
[2022-11-24] MEDS: HYDROcodone/acetaminophen (*CRX) 10-325 MG TABLET 1 TAB PO (22:14)
[2022-11-24] MEDS: MICONAZOLE NITRATE 2% VAGINAL CREAM 45 GM TUBE 1 APPFUL VAGINAL (22:20)
[2022-11-24 22:32] LABS: Glucose Point of Care 162 mg/dl (65-105)
[2022-11-25] MEDS: HYDROcodone/acetaminophen (*CRX) 10-325 MG TABLET 1 TAB PO ×4 (04:01→23:02)
[2022-11-25 06:00] VITALS: BP 111/47; PULSE 95; RESP 18; TEMP 36.3; O2SAT 96
[2022-11-25 06:00] LABS: Hematocrit 28.6 % (37.0-47.0); Hemoglobin 8.2 g/dL (12.0-15.0); Mean Corpuscular HGB Conc 28.7 g/dl (32-36); Mean Corpuscular Hemoglobin 21.1 pg (26-34); Mean Corpuscular Volume 73.7 fl (80-100); Mean Platelet Volume 10.3 fl (7.4-10.4); Platelet Count Result 328 k/mm3 (150-375); Red Blood Count 3.88 M/mm3 (4.2-5.4); Red Cell Distribution Width 17.2 % (11.5-14.5); White Blood Count 13.4 K/mm3 (4.5-10.0)
[2022-11-25 06:04] LABS: Anion Gap 3 mmol/L (8-16); Blood Urea Nitrogen 5 mg/dL (7-17); Calcium 8.1 mg/dL (8.4-10.2); Carbon Dioxide 31 mmol/L (22-30); Chloride 99 mmol/L (98-107); Estimated CRCL calculation 203 ml/min; Estimated Glomerular Filt Rate > 60; Glucose 163 mg/dL (65-110); Potassium 3.7 mmol/L (3.4-5.0); Sodium 133 mmol/L (137-145)
[2022-11-25 08:03] LABS: Band Neutrophils Percent 7 % (0-6); Hypochromasia 2+ (NORMAL); Lymphocytes Absolute Manual 0.93 K/mm3 (1.1-4.5); Metamyelocytes Percent 3 %; Monocytes Absolute Manual 1.74 K/mm3 (0.1-0.90); Monocytes Percent Manual 13 % (3-9); Neutrophils Absolute Manual 10.31 K/mm3 (1.7-7.2); Neutrophils Percent Manual 70 % (46-73); Nucleated Red Blood Cells 1 %; Ovalocytes 1+ (NORMAL); Platelet Estimate Adequate (Adequate); Total Cells Counted 100
[2022-11-25 08:04] LABS: Anisocytosis 2+ (NORMAL); Large Platelets Present; Poikilocytosis 1+ (NORMAL); Schistocytes Rare (NORMAL)
[2022-11-25 08:14] LABS: Glucose Point of Care 177 mg/dl (65-105)
[2022-11-25] MEDS: INSULIN GLARGINE (*BKC) 100 UNITS/ML 12 UNITS SUB-Q (08:48)
[2022-11-25] MEDS: INSULIN ASPART (*BKC) 100 UNITS/ML SUB-Q ×3 (08:48→17:47)
[2022-11-25] MEDS: PANTOPRAZOLE 40 MG TABLET PO (08:53)
[2022-11-25] MEDS: NYSTATIN 100,000 UNITS/ML SUSP 5 ML ORAL.SUSP PO ×4 (08:53→22:33)
[2022-11-25] MEDS: POTASSIUM CHLORIDE 20 MEQ TABLET.ER 40 MEQ PO ×2 (08:53→17:06)
[2022-11-25] MEDS: ENOXAPARIN 40 MG/0.4 ML SYRINGE SUB-Q (08:53)
[2022-11-25] MEDS: NEOMYCIN/POLYMYXIN/BACITRACIN OINTMENT 15 GM TUBE 1 APPLIC TOPICAL (08:54)
--- NOTE | 2022-11-25 10:56 | PM.PNGS ---
Progress Note: A&P Assessment and Plan (1) Ruptured appendicitis: Code(s): K35.32 - Acute appendicitis with perforation, localized peritonitis, and gangrene, without abscess Status: Acute Assessment and Plan: continues to improve. Continue IV antibiotics for a full 7 day course. If doing well, could probably discontinue IV antibiotics on and discharge on oral antibiotics. (2) Tachycardia: Code(s): R00.0 - Tachycardia, unspecified Status: Acute Assessment and Plan: Heart rate remains about 100. (3) Anemia: Code(s): D64.9 - Anemia, unspecified Status: Chronic Assessment and Plan: Stable Subjective Subjective Date/Time Seen: 11/25/22 10:56 Post Op day: #6 Patient reports: feels better, pain is less, bowel movement and afebrile Exam Const: General: comfortable and no acute distress; No confusion Orientation/consciousness: patient oriented x3 and No confusion GI: Inspection: non-distended, incision ( Dry and healing) and obesity GI Palp: Yes Soft to palpation, Yes Tenderness to palpation present (GI) ( less tender than before), No Guarding due to palpation present (GI) and No Rebound tenderness present Auscultation: normal bowel sounds Neuro: General: patient oriented x3, no focal motor deficits and No confusion Psych: Affect: normal affect Insight: Good insight present (Psych) Judgement: Good judgement present (Psych) Objective Data Vital Signs Vital Signs: Vital Signs - 24 hr 11/24/22 14:52 11/24/22 20:00 11/25/22 06:00 Temperature 36.8 C 36.3 C L 36.3 C L Pulse Rate 97 104 H 95 Respiratory Rate 18 16 18 Blood Pressure 108/60 110/53 L 111/47 L Pulse Oximetry 95 94 96 Intake/Output Intake/Output: Intake & Output 11/22/22 11/23/22 11/24/22 11/25/22 23:59 23:59 23:59 23:59 Intake Total 2690 1620 2230 700 Output Total 1210 670 900 Balance 0239 403 7792 700 Meds/Results Medications: Active Medications Generic Name Dose Route Start Last Admin Trade Name Freq PRN Reason Stop Dose Admin Acetaminophen 500 mg 11/19/22 19:48 Acetaminophen 500 Mg Tablet PO Q6H PRN Mild Pain (1-3) or Fever Hydrocodone Bitart/Acetaminophen 1 tab 11/20/22 19:32 11/21/22 19:06 Hydrocodone/Acetaminophen (*Crx) 5-325 Mg Tablet PO 1 tab Q4H PRN Administration Pain Rated 4-6 Hydrocodone Bitart/Acetaminophen 1 tab 11/20/22 19:32 11/25/22 04:01 Hydrocodone/Acetaminophen (*Crx) 10-325 Mg Tablet PO 1 tab Q6H PRN Administration Pain Rated 7-10 Dextrose 12.5 gm 11/19/22 19:48 Dextrose 50% 25 Gm/50 Ml Syringe IV PUSH PRN PRN Hypoglycemia Protocol Enoxaparin Sodium 40 mg 11/20/22 09:00 11/25/22 08:53 Enoxaparin 40 Mg/0.4 Ml Syringe SUB-Q 40 mg DAILY MIYA Administration Glucagon 1 mg 11/19/22 19:48 Glucagon For Inj 1 Mg Vial IM PRN PRN Hypoglycemia Protocol Glucose 15 gm 11/19/22 19:48 Glucose Oral Gel 15 Gm Of Glucse In 37.5 Gm Tube PO PRN PRN Hypoglycemia Protocol Hydromorphone HCl 1 mg 11/20/22 10:21 Hydromorphone Hcl Inj (*Crx) 1 Mg/Ml Syr IV PUSH Q6H PRN Pain 7-10 IF NPO Dextrose 1,000 mls @ 100 mls/hr 11/19/22 19:48 Dextrose 5% 1,000 Ml IVPB PRN PRN Hypoglycemia Protocol Ibuprofen 800 mg in 200 mls @ 400 mls/hr 11/21/22 08:38 Caldolor 800 Mg/200 Ml IVPB Q6H PRN Mild Pain (1-3) or Headache Imipenem/Cilastatin Sodium 500 mg in 100 mls @ 300 mls/hr 11/22/22 12:15 11/25/22 05:42 Primaxin 500 Mg/Ns 100 Ml IVPB 300 mls/hr Q6HR MIYA Administration Insulin Aspart 4 - 8 units 11/20/22 08:00 11/25/22 08:54 Insulin Aspart (*Bkc) 100 Units/Ml SUB-Q Not Given TIDWM MIYA Protocol Insulin Aspart 5 units 11/20/22 12:00 11/25/22 08:48 Insulin Aspart (*Bkc) 100 Units/Ml SUB-Q 5 units TIDWM MIYA Administration Insulin Glargine 12 units 11/21/22 09:0
[2022-11-25 12:16] LABS: Glucose Point of Care 174 mg/dl (65-105)
[2022-11-25 14:00] VITALS: BP 103/56; PULSE 94; RESP 18; TEMP 36.9; O2SAT 95
--- NOTE | 2022-11-25 15:02 | PM.IMPN ---
Progress Note: A&P Assessment and Plan (1) Morbid obesity: Code(s): E66.01 - Morbid (severe) obesity due to excess calories Status: Chronic (2) Ruptured appendicitis: Code(s): K35.32 - Acute appendicitis with perforation, localized peritonitis, and gangrene, without abscess Status: Acute (3) NAVARRO (obstructive sleep apnea): Code(s): G47.33 - Obstructive sleep apnea (adult) (pediatric) Status: Chronic (4) S/P gastric bypass: Code(s): Z98.84 - Bariatric surgery status Status: Chronic (5) DM w/o complication type II, uncontrolled: Code(s): E11.65 - Type 2 diabetes mellitus with hyperglycemia Status: Chronic (6) Tachycardia: Code(s): R00.0 - Tachycardia, unspecified Status: Acute (7) Anemia: Code(s): D64.9 - Anemia, unspecified Status: Chronic Plan # ruptured appendicitis status post laparoscopic appendectomy and laparoscopic drainage of intra-abdominal abscess on 11/19/2022. Pain control with IV morphine as needed. # leukocytosis slightly improved but is still persistent. Will change antibiotic to imipenem today from Zosyn. If still persistent may need to rescan to see any other source. Blood cultures no growth. Culture from the drainage fluid pending Still persistent leukocytosis and pain in right lower quadrant. Repeat CT scan 11/23/2022: Right anterior abdominal drainage catheter dislodged right paracolic gutter abscess decrease in size rim enhancing fluid collections at gastroesophageal junction and left adnexa. Generally increase inflammatory changes in the right abdominal mesentery. Discussed with general surgeon. Plan to treat that with IV antibiotics per total 7 days and switched to oral subsequently. May repeat CT to check on the status of the collections in future in case leukocytosis does not resolve or worsens # Tachycardia could be pain related slowly improving. On IV fluid which will be continued until p.o. intake is up diane . Morphine is not working she states. On hydromorphone p.r.n. this has resolved # anemia: Mild noted to be anemic back in September as well. Iron profile low iron saturation IV Venofer received. Vitamin B12 folic acid since she is post bypass she should be on iron supplementation. # DVT prophylaxis: enoxaparin # status post gastric bypass surgery 2016 # history of back surgery 2008 # GI prophylaxis on famotidine. # type 2 diabetes mellitus blood sugar trend reviewed.Continue sliding scale insulin A1c at 7.6 already on high-dose sliding scale will add basal bolus regimen weight based. Half dosing to begin with. Blood sugar trend reviewed and at goal currently. A1c at 7.6 # code status full code Subjective Date/time seen: 11/25/22 15:02 Interval history: No overnight events. Remains afebrile. Having bowel movement. No nausea vomiting. Still bit sore in her right side labs were reviewed. Review of Systems Review of Systems: All systems reviewed & are unremarkable except as noted in HPI and below Exam Narrative: GENERAL: patient with morbid obesity, not in acute distress HEAD: Normocephalic, atraumatic. EYES: PERRLA and EOMI. ENT: Nares clear, no rhinorrhea or epistaxis.? Mucous membranes moist. NECK: Supple. CHEST: Clear to auscultation.? No respiratory distress. HEART: Regular rhythm and rate..? No murmur heard.? Normal peripheral pulses. ABDOMEN: Soft, Mildly tender diffusely. Dressing on right lower quadrant present EXTREMITIES: Normal range of motion.? No edema. SKIN: Warm, dry, no rash. NEURO: No focal deficits.? Alert and oriented x3. Objective Data Vital Signs Vital Signs: Vital Signs - 24 hr 11/24/22 20:00 11/25/22 06:00 Temperature 97.3 F L 97.3 F L Pulse Rate 104 H 95 Respiratory Rate 16 18 Blood Pressure 110/53 L 111/47 L Pulse Oximetry 94 96 Intake/Output Intake/Output: Intake & Output 11/22/22 11/23/22 11/24/22 11/25/22 23:59 23:59 23:
[2022-11-25 17:09] LABS: Glucose Point of Care 132 mg/dl (65-105)
[2022-11-25 21:30] VITALS: BP 129/83; PULSE 96; RESP 18; TEMP 36.6; O2SAT 93
[2022-11-25 21:47] LABS: Glucose Point of Care 137 mg/dl (65-105)
[2022-11-25] MEDS: MICONAZOLE NITRATE 2% VAGINAL CREAM 45 GM TUBE 1 APPFUL VAGINAL (22:35)
[2022-11-26] MEDS: IBUPROFEN IV 800 MG/200 ML 800 MG/200 ML BAG 400 MG IVPB ×2 (03:35→21:49)
[2022-11-26 05:10] VITALS: BP 119/62; PULSE 95; RESP 18; TEMP 36.7; O2SAT 93
[2022-11-26] MEDS: HYDROcodone/acetaminophen (*CRX) 10-325 MG TABLET 1 TAB PO ×3 (05:21→19:05)
[2022-11-26 06:40] LABS: Basophils Absolute Auto 0.1 K/mm3 (0.0-0.1); Basophils Percent Auto 0.4 % (0.2-1.2); Eosinophils Absolute Auto 0.1 K/mm3 (0-0.3); Eosinophils Percent Auto 0.9 % (0-4.4); Hematocrit 28.2 % (37.0-47.0); Hemoglobin 8.1 g/dL (12.0-15.0); Immature Granulocyte Absolute 1.15 K/mm3 (0.00-0.031); Immature Granulocyte Percent A 8.9 % (0-0.5); Lymphocytes Absolute Auto 2.62 K/mm3 (0.9-3.2); Lymphocytes Percent Auto 20.4 % (18.3-44.2); Mean Corpuscular HGB Conc 28.7 g/dl (32-36); Mean Corpuscular Hemoglobin 21.1 pg (26-34); Mean Corpuscular Volume 73.4 fl (80-100); Mean Platelet Volume 10.6 fl (7.4-10.4); Monocytes Absolute Auto 1.4 K/mm3 (0.1-0.6); Monocytes Percent Auto 10.7 % (2.6-8.5); Neutrophils Absolute Auto 7.6 K/mm3 (1.3-6.7); Neutrophils Percent Auto 58.7 % (45.5-73.1); Nucleated Red Blood Cells Absolute Auto 0.1 K/mm3 (0.0-0.012); Nucleated Red Blood Cells Perc 0.6 % (0.0-0.2); Platelet Count Result 328 k/mm3 (150-375); Red Blood Count 3.84 M/mm3 (4.2-5.4); Red Cell Distribution Width 17.7 % (11.5-14.5); White Blood Count 12.9 K/mm3 (4.5-10.0)
[2022-11-26 06:47] LABS: Alanine Aminotransferase 12 U/L (6-35); Albumin Level 2.8 g/dL (3.5-5.1); Alkaline Phosphatase 73 U/L (38-126); Anion Gap 5 mmol/L (8-16); Aspartate Amino Transferase 19 U/L (14-36); Bilirubin,Total 0.3 mg/dL (0.2-1.3); Blood Urea Nitrogen 9 mg/dL (7-17); Carbon Dioxide 29 mmol/L (22-30); Chloride 99 mmol/L (98-107); Estimated CRCL calculation 203 ml/min; Estimated Glomerular Filt Rate > 60; Glucose 143 mg/dL (65-110); Potassium 4.2 mmol/L (3.4-5.0); Sodium 133 mmol/L (137-145)
[2022-11-26 08:06] LABS: Platelet Estimate Adequate (Adequate)
[2022-11-26 08:11] LABS: Hypochromasia 2+ (NORMAL)
[2022-11-26 08:12] LABS: Anisocytosis 1+ (NORMAL); Macrocytosis 1+ (NORMAL); Ovalocytes 1+ (NORMAL); Schistocytes None Seen (NORMAL)
[2022-11-26 08:46] LABS: Glucose Point of Care 140 mg/dl (65-105)
--- NOTE | 2022-11-26 09:25 | PM.PNGS ---
Progress Note: A&P Assessment and Plan (1) Ruptured appendicitis: Code(s): K35.32 - Acute appendicitis with perforation, localized peritonitis, and gangrene, without abscess Status: Acute Assessment and Plan: Still complaining of RUQ abdominal pain and tenderness without much improvement. Will repeat a CT abdomen/pelvis with contrast. Continue IV antibiotics (on day 8 total, IV Zosyn switched to IV Primaxin on 11/22). Tolerating a diet, but no BM x 2 days. Will give fleets enema. Encouraged walking the halls and increasing activity as tolerated. (2) Tachycardia: Code(s): R00.0 - Tachycardia, unspecified Status: Acute Assessment and Plan: Tachycardia improved with HR in the 90's yesterday and today. (3) Anemia: Code(s): D64.9 - Anemia, unspecified Status: Chronic Assessment and Plan: Remains stable Plan I have discussed the patient's case and plan of care with Dr. Elaine. Subjective Subjective Date/Time Seen: 11/26/22 09:25 Post Op day: 7 (Laparoscopic appendectomy, laparoscopic drainage of intra-abdominal abscess) Patient reports: still having pain, tolerating a regular diet, flatus and afebrile Interval history: Chart reviewed. Patient seen and reports still having RUQ abdominal pain. This has been present since the surgery, remains constant, and has not had much if any improvement. This pain is aggravated by standing straight up and walking. She is still taking [place] 10-325mg and IV Ibuprofen for this pain. She is passing flatus, but has not had a BM in 2 days. Tolerating her diet without any nausea, vomiting, or bloating. No other complaints at this time. Review of Systems Review of Systems: All systems reviewed & are unremarkable except as noted in HPI and below Exam Const: General: comfortable, no acute distress and awake Nutritional Appearance: obese Orientation/consciousness: patient oriented x3 GI: Inspection: incision (incisions dry and intact) and obesity GI Palp: Yes Soft to palpation, Yes Tenderness to palpation present (GI) (RUQ, Epigastric), No Guarding due to palpation present (GI) and No Rebound tenderness present Auscultation: normal bowel sounds Neuro: General: moves all extremities and no focal motor deficits Extrem: General: no calf tenderness and no edema Psych: Mental Status: mental status grossly normal Insight: Good insight present (Psych) Objective Data Vital Signs Vital Signs: Vital Signs - 24 hr 11/25/22 14:00 11/25/22 21:30 11/26/22 05:10 Temperature 98.5 F 97.8 F 98.0 F Pulse Rate 94 96 95 Respiratory Rate 18 18 18 Blood Pressure 103/56 L 129/83 119/62 Pulse Oximetry 95 93 93 Intake/Output Intake/Output: Intake & Output 11/23/22 11/24/22 11/25/22 11/26/22 23:59 23:59 23:59 23:59 Intake Total 1620 2230 3240 1150 Output Total 670 900 Balance 950 1330 3240 1150 Meds/Results Medications: Active Medications Generic Name Dose Route Start Last Admin Trade Name Freq PRN Reason Stop Dose Admin Acetaminophen 500 mg 11/19/22 19:48 Acetaminophen 500 Mg Tablet PO Q6H PRN Mild Pain (1-3) or Fever Hydrocodone Bitart/Acetaminophen 1 tab 11/20/22 19:32 11/21/22 19:06 Hydrocodone/Acetaminophen (*Crx) 5-325 Mg Tablet PO 1 tab Q4H PRN Administration Pain Rated 4-6 Hydrocodone Bitart/Acetaminophen 1 tab 11/20/22 19:32 11/26/22 05:21 Hydrocodone/Acetaminophen (*Crx) 10-325 Mg Tablet PO 1 tab Q6H PRN Administration Pain Rated 7-10 Dextrose 12.5 gm 11/19/22 19:48 Dextrose 50% 25 Gm/50 Ml Syringe IV PUSH PRN PRN Hypoglycemia Protocol Enoxaparin Sodium 40 mg 11/20/22 09:00 11/25/22 08:53 Enoxaparin 40 Mg/0.4 Ml Syringe SUB-Q 40 mg DAILY MIYA Administration Glucagon 1 mg 11/19/22 19:48 Glucagon For Inj 1 Mg Vial IM PRN PRN Hypoglycemia Protocol Glucose 15 gm 11/19/22 19:48 Glucose Oral Gel 15 Gm Of Glucse In 37.5
[2022-11-26 09:30] LABS: Glucose Point of Care 165 mg/dl (65-105)
[2022-11-26] MEDS: POTASSIUM CHLORIDE 20 MEQ TABLET.ER 40 MEQ PO ×2 (09:30→17:43)
[2022-11-26] MEDS: PANTOPRAZOLE 40 MG TABLET PO (09:30)
[2022-11-26] MEDS: NYSTATIN 100,000 UNITS/ML SUSP 5 ML ORAL.SUSP PO ×4 (09:30→21:51)
[2022-11-26] MEDS: ENOXAPARIN 40 MG/0.4 ML SYRINGE SUB-Q (09:30)
[2022-11-26] MEDS: INSULIN GLARGINE (*BKC) 100 UNITS/ML 12 UNITS SUB-Q (09:31)
[2022-11-26] MEDS: INSULIN ASPART (*BKC) 100 UNITS/ML SUB-Q ×3 (09:31→17:30)
[2022-11-26] MEDS: NEOMYCIN/POLYMYXIN/BACITRACIN OINTMENT 15 GM TUBE 1 APPLIC TOPICAL (09:32)
[2022-11-26] MEDS: polyethylene glycoL 3350 17 GM POWD.PACK PO (09:42)
[2022-11-26 12:23] LABS: Glucose Point of Care 150 mg/dl (65-105)
[2022-11-26 13:24] VITALS: BP 145/81; PULSE 95; RESP 18; TEMP 36.6; O2SAT 97
--- NOTE | 2022-11-26 15:14 | PM.IMPN ---
Progress Note: A&P Assessment and Plan (1) Morbid obesity: Code(s): E66.01 - Morbid (severe) obesity due to excess calories Status: Chronic (2) Ruptured appendicitis: Code(s): K35.32 - Acute appendicitis with perforation, localized peritonitis, and gangrene, without abscess Status: Acute (3) NAVARRO (obstructive sleep apnea): Code(s): G47.33 - Obstructive sleep apnea (adult) (pediatric) Status: Chronic (4) S/P gastric bypass: Code(s): Z98.84 - Bariatric surgery status Status: Chronic (5) DM w/o complication type II, uncontrolled: Code(s): E11.65 - Type 2 diabetes mellitus with hyperglycemia Status: Chronic (6) Tachycardia: Code(s): R00.0 - Tachycardia, unspecified Status: Acute (7) Anemia: Code(s): D64.9 - Anemia, unspecified Status: Chronic Plan # ruptured appendicitis status post laparoscopic appendectomy and laparoscopic drainage of intra-abdominal abscess on 11/19/2022. Pain control with IV morphine as needed. # leukocytosis slightly improved but is still persistent. Will change antibiotic to imipenem today from Zosyn. If still persistent may need to rescan to see any other source. Blood cultures no growth. Culture from the drainage fluid pending Still persistent leukocytosis and pain in right lower quadrant. Repeat CT scan 11/23/2022: Right anterior abdominal drainage catheter dislodged right paracolic gutter abscess decrease in size rim enhancing fluid collections at gastroesophageal junction and left adnexa. Generally increase inflammatory changes in the right abdominal mesentery. Discussed with general surgeon. Plan to treat that with IV antibiotics per total 7 days and switched to oral subsequently. May repeat CT to check on the status of the collections in future in case leukocytosis does not resolve or worsens # Tachycardia could be pain related slowly improving. On IV fluid which will be continued until p.o. intake is up diane . Morphine is not working she states. On hydromorphone p.r.n. this has resolved # anemia: Mild noted to be anemic back in September as well. Iron profile low iron saturation IV Venofer received. Vitamin B12 folic acid since she is post bypass she should be on iron supplementation. # DVT prophylaxis: enoxaparin # status post gastric bypass surgery 2016 # history of back surgery 2008 # GI prophylaxis on famotidine. # type 2 diabetes mellitus blood sugar trend reviewed.Continue sliding scale insulin A1c at 7.6 already on high-dose sliding scale will add basal bolus regimen weight based. Half dosing to begin with. Blood sugar trend reviewed and at goal currently. A1c at 7.6 # code status full code 11/26/2021 interval history: patient with a acute appendicitis with perforation status post surgery, patient continued to complain abdominal pain and no BM for 2 days and passing gas, patient is being treated with MiraLax and planning to give enema, surgery service has ordered CT of abdomen and further recommendation to follow. Subjective Date/time seen: 11/26/22 15:14 Interval history: No overnight events. Remains afebrile. Having bowel movement. No nausea vomiting. Still bit sore in her right side labs were reviewed. 11/26/2021 interval history: patient with a acute appendicitis with perforation status post surgery, patient continued to complain abdominal pain and no BM for 2 days and passing gas, patient is being treated with MiraLax and planning to give enema, surgery service has ordered CT of abdomen and further recommendation to follow. Review of Systems Review of Systems: All systems reviewed & are unremarkable except as noted in HPI and below Exam Narrative: morbidly obese Patient is comfortable, NAD HEENT: eyes are clear and none icteric LUNGS: normal respiratory effort ABD: obese distended Lower extremities: no edema SKIN: nonjaundiced Neuro: grossly intact.
--- NOTE | 2022-11-26 15:21 | PCNWS ---
Weekly nutritional screen. Patient is tolerating current diet with adequate intake. No weight loss reported. No nutritional needs at this time.
[2022-11-26 16:58] LABS: Glucose Point of Care 134 mg/dl (65-105)
[2022-11-26] MEDS: MICONAZOLE NITRATE 2% VAGINAL CREAM 45 GM TUBE 1 APPFUL VAGINAL (21:54)
[2022-11-26 22:00] VITALS: BP 125/68; PULSE 99; RESP 18; TEMP 36.9; O2SAT 95
[2022-11-26 22:11] LABS: Glucose Point of Care 162 mg/dl (65-105)
[2022-11-27] MEDS: HYDROcodone/acetaminophen (*CRX) 10-325 MG TABLET 1 TAB PO (03:28)
[2022-11-27 05:13] LABS: Basophils Percent Auto 0.2 % (0.2-1.2); Eosinophils Absolute Auto 0.1 K/mm3 (0-0.3); Eosinophils Percent Auto 1.2 % (0-4.4); Hematocrit 28.6 % (37.0-47.0); Hemoglobin 8.1 g/dL (12.0-15.0); Immature Granulocyte Absolute 0.66 K/mm3 (0.00-0.031); Immature Granulocyte Percent A 6.4 % (0-0.5); Lymphocytes Absolute Auto 2.34 K/mm3 (0.9-3.2); Lymphocytes Percent Auto 22.8 % (18.3-44.2); Mean Corpuscular HGB Conc 28.3 g/dl (32-36); Mean Corpuscular Hemoglobin 21.4 pg (26-34); Mean Corpuscular Volume 75.7 fl (80-100); Mean Platelet Volume 10.9 fl (7.4-10.4); Monocytes Percent Auto 9.8 % (2.6-8.5); Neutrophils Absolute Auto 6.1 K/mm3 (1.3-6.7); Neutrophils Percent Auto 59.6 % (45.5-73.1); Nucleated Red Blood Cells Perc 0.3 % (0.0-0.2); Platelet Count Result 340 k/mm3 (150-375); Red Blood Count 3.78 M/mm3 (4.2-5.4); Red Cell Distribution Width 18.5 % (11.5-14.5); White Blood Count 10.3 K/mm3 (4.5-10.0)
[2022-11-27 05:27] LABS: Anion Gap 6 mmol/L (8-16); Blood Urea Nitrogen 9 mg/dL (7-17); Calcium 8.1 mg/dL (8.4-10.2); Carbon Dioxide 29 mmol/L (22-30); Chloride 101 mmol/L (98-107); Estimated CRCL calculation 203 ml/min; Estimated Glomerular Filt Rate > 60; Glucose 124 mg/dL (65-110); Potassium 4.3 mmol/L (3.4-5.0); Sodium 136 mmol/L (137-145)
[2022-11-27 05:31] VITALS: BP 122/66; PULSE 83; RESP 18; TEMP 36.5; O2SAT 95
[2022-11-27 05:57] LABS: Anisocytosis 1+ (NORMAL); Hypochromasia 2+ (NORMAL); Ovalocytes 1+ (NORMAL); Platelet Estimate Adequate (Adequate); Stomatocytes 1+ (NORMAL)
[2022-11-27 05:58] LABS: Schistocytes Rare (NORMAL)
[2022-11-27 08:15] LABS: Glucose Point of Care 125 mg/dl (65-105)
[2022-11-27] MEDS: NYSTATIN 100,000 UNITS/ML SUSP 5 ML ORAL.SUSP PO ×2 (08:58→12:57)
[2022-11-27] MEDS: ENOXAPARIN 40 MG/0.4 ML SYRINGE SUB-Q (08:58)
[2022-11-27] MEDS: POTASSIUM CHLORIDE 20 MEQ TABLET.ER 40 MEQ PO (08:58)
[2022-11-27] MEDS: PANTOPRAZOLE 40 MG TABLET PO (08:58)
[2022-11-27] MEDS: CIPROFLOXACIN 500 MG TAB PO (08:59)
[2022-11-27] MEDS: NEOMYCIN/POLYMYXIN/BACITRACIN OINTMENT 15 GM TUBE 1 APPLIC TOPICAL (09:01)
[2022-11-27] MEDS: INSULIN ASPART (*BKC) 100 UNITS/ML SUB-Q ×2 (09:06→13:05)
[2022-11-27] MEDS: INSULIN GLARGINE (*BKC) 100 UNITS/ML 12 UNITS SUB-Q (09:07)
--- NOTE | 2022-11-27 10:44 | PM.DS ---
DS: Admitting Diagnosis Discharge Date 11/27/22 Admitting Diagnosis Ruptured acute appendicitis Morbid obesity, BMI 50 Type 2 diabetes mellitus, uncontrolled NAVARRO History of gastric bypass DS: Discharge Diagnosis Discharge Diagnosis (1) Ruptured appendicitis: Code(s): K35.32 - Acute appendicitis with perforation, localized peritonitis, and gangrene, without abscess Status: Acute Assessment and Plan: 11/19/22 - Laparoscopic appendectomy, laparoscopic drainage of intra-abdominal abscess - by Dr. Elaine Pathology showed - Acute appendicitis with perforation (2) DM w/o complication type II, uncontrolled: Code(s): E11.65 - Type 2 diabetes mellitus with hyperglycemia Status: Chronic Assessment and Plan: Remained stable. Hospitalist was consulted on post-op day 0 for medical management. Hgb A1C 7.6 on admission. Her home medications were held and she was placed on sliding scale insulin with accuchecks while hospitalized. Continue home medications and follow-up with PCP as recommended. (3) NAVARRO (obstructive sleep apnea): Code(s): G47.33 - Obstructive sleep apnea (adult) (pediatric) Status: Chronic Assessment and Plan: Stable, no acute issues. (4) Tachycardia: Code(s): R00.0 - Tachycardia, unspecified Status: Resolved Assessment and Plan: Resolved. Patient had tachycardia following surgery. Hospitalist was consulted for medical management. Norris the tachycardia was likely related to the infection and pain. This slowly improved and resolved between post-op day 4-5. No longer tachycardic and pain is better controlled. (5) Anemia: Code(s): D64.9 - Anemia, unspecified Status: Chronic Assessment and Plan: Hemoglobin 10.1 on admission and she appeared to be anemic with hgb 9.6 in September 2022. Hgb dropped to as low as 7.7 on post-op day 2, but remained stable following this with a hgb now staying around 8.1-8.2. The drop could be dilutional and also related to the surgery. No signs of active bleeding. Labs were monitored and this was stable for multiple days prior to discharge. F/u with PCP. (6) Morbid obesity: Code(s): E66.01 - Morbid (severe) obesity due to excess calories Status: Chronic Assessment and Plan: S/p gastric bypass with BMI 50. Encouraged diet and lifestyle modifications to help promote weight loss. F/u with PCP. (7) S/P gastric bypass: Code(s): Z98.84 - Bariatric surgery status Status: Chronic DS: Summary Hospital Course Reason for hospitalization: Patient presented to the ER on 11/19/22 with 10 days of RLQ abdominal pain. Workup revealed evidence of ruptured appendicitis with leukocytosis. She was admitted in this setting for further treatment and surgical evaluation. Hospital Course: She was started on broad-spectrum IV antibiotics and taken to the OR on 11/19/22 for a Laparoscopic appendectomy, laparoscopic drainage of intra-abdominal abscess by Dr. Elaine. She had a KEITH drain in place following surgery and the Hospitalist was consulted for medical management. She did have tachycardia, which is described above. This continued until post-op day 4. She had PRN analgesics prescribed following surgery to help with pain control. She was started on a liquid diet following surgery. This was slowly advanced as tolerated. Initially, she was treated with IV Zosyn. We consulted the ID pharmacist. She was switched to IV Primaxin on post-op day 3, which she remained on until today. She has had issues with pain control following surgery and continued to complain of RUQ abdominal pain. Her WBC has consistently trended down while monitoring her labs. She had a repeat CT scan of the abdomen and pelvis on post-op day 4 and 7. The first repeat CT showed no drainable abscess or fluid collection with increased inflammatory change in the right abdominal mesentery, and small R pleural effusion. The second repeat CT again showed inflam
[2022-11-27 12:19] LABS: Glucose Point of Care 122 mg/dl (65-105)
[2022-11-27] MEDS: IBUPROFEN IV 800 MG/200 ML 800 MG/200 ML BAG 400 MG IVPB (12:55)
[2022-11-27] MEDS: metroNIDAZOLE 250 MG TABLET 500 MG PO (12:57)
--- NOTE | 2022-11-27 13:28 | PM.IMPN ---
Progress Note: A&P Assessment and Plan (1) Morbid obesity: Code(s): E66.01 - Morbid (severe) obesity due to excess calories Status: Chronic (2) Ruptured appendicitis: Code(s): K35.32 - Acute appendicitis with perforation, localized peritonitis, and gangrene, without abscess Status: Acute (3) NAVARRO (obstructive sleep apnea): Code(s): G47.33 - Obstructive sleep apnea (adult) (pediatric) Status: Chronic (4) S/P gastric bypass: Code(s): Z98.84 - Bariatric surgery status Status: Chronic (5) DM w/o complication type II, uncontrolled: Code(s): E11.65 - Type 2 diabetes mellitus with hyperglycemia Status: Chronic (6) Tachycardia: Code(s): R00.0 - Tachycardia, unspecified Status: Resolved (7) Anemia: Code(s): D64.9 - Anemia, unspecified Status: Chronic Plan # ruptured appendicitis status post laparoscopic appendectomy and laparoscopic drainage of intra-abdominal abscess on 11/19/2022. Pain control with IV morphine as needed. # leukocytosis slightly improved but is still persistent. Will change antibiotic to imipenem today from Zosyn. If still persistent may need to rescan to see any other source. Blood cultures no growth. Culture from the drainage fluid pending Still persistent leukocytosis and pain in right lower quadrant. Repeat CT scan 11/23/2022: Right anterior abdominal drainage catheter dislodged right paracolic gutter abscess decrease in size rim enhancing fluid collections at gastroesophageal junction and left adnexa. Generally increase inflammatory changes in the right abdominal mesentery. Discussed with general surgeon. Plan to treat that with IV antibiotics per total 7 days and switched to oral subsequently. May repeat CT to check on the status of the collections in future in case leukocytosis does not resolve or worsens # Tachycardia could be pain related slowly improving. On IV fluid which will be continued until p.o. intake is up diane . Morphine is not working she states. On hydromorphone p.r.n. this has resolved # anemia: Mild noted to be anemic back in September as well. Iron profile low iron saturation IV Venofer received. Vitamin B12 folic acid since she is post bypass she should be on iron supplementation. # DVT prophylaxis: enoxaparin # status post gastric bypass surgery 2016 # history of back surgery 2008 # GI prophylaxis on famotidine. # type 2 diabetes mellitus blood sugar trend reviewed.Continue sliding scale insulin A1c at 7.6 already on high-dose sliding scale will add basal bolus regimen weight based. Half dosing to begin with. Blood sugar trend reviewed and at goal currently. A1c at 7.6 # code status full code 11/27/2021 interval history: patient with a acute appendicitis with perforation status post surgery, patient continued to complain abdominal pain and no BM for 2 days and passing gas, today bowl function has returned, patient is clinically stable her HR is trending down, patient is seen by surgery service, is being discharged home and will follow discharge instruction from her surgeon and follow up as scheduled. Subjective Date/time seen: 11/27/22 13:28 Interval history: No overnight events. Remains afebrile. Having bowel movement. No nausea vomiting. Still bit sore in her right side labs were reviewed. 11/27/2021 interval history: patient with a acute appendicitis with perforation status post surgery, patient continued to complain abdominal pain and no BM for 2 days and passing gas, today bowl function has returned, patient is clinically stable her HR is trending down, patient is seen by surgery service, is being discharged home and will follow discharge instruction from her surgeon and follow up as scheduled. Review of Systems Review of Systems: All systems reviewed & are unremarkable except as noted in HPI and below Exam Narrative: morbidly obese Patient is comfortable, NAD HE
== END 2022-11-27 14:23 | disposition home or self-care (01) | DRG 339 ==
LOC: ANHED 16:00 → ANHSURGERY 16:26 → ANH2MED 19:50
PROVIDERS: Family Medicine; Internal Medicine; Admitting Provider Surgery; Emergency Provider Emergency Medicine; PCP Family Medicine; Visit Provider Nurse Practitioner Family
PROC: 0DTJ4ZZ Resection of Appendix, Percutaneous Endoscopic Approach (ICD-10-PCS; CPT 44970; principal; 2022-11-19 17:30)
DX: K35.21 Acute appendicitis with generalized peritonitis, with abscess (principal); I97.191 Other postprocedural cardiac functional disturbances following other surgery; Z68.43 Body mass index [BMI] 50.0-59.9, adult; T85.628A Displacement of other specified internal prosthetic devices, implants and grafts, initial encounter; K91.61 Intraoperative hemorrhage and hematoma of a digestive system organ or structure complicating a digestive system procedure; E66.01 Morbid (severe) obesity due to excess calories; E11.65 Type 2 diabetes mellitus with hyperglycemia; D64.9 Anemia, unspecified; R00.0 Tachycardia, unspecified; G47.33 Obstructive sleep apnea (adult) (pediatric); Z20.822 Contact with and (suspected) exposure to COVID-19; Z98.84 Bariatric surgery status; Y83.8 Other surgical procedures as the cause of abnormal reaction of the patient, or of later complication, without mention of misadventure at the time of the procedure
CPT/HCPCS: 36415; 74177; 80048; 80053; 81001; 82607; 82728; 82746; 82948; 83036; 83540; 83550; 83690; 83735; 85025; 85027; 87040; 87070; 87075; 87076; 87185; 87205; 87636; 88304; 96361; 96365; 96375; 96376; 99285; A9270; J0131; J0330; J0743; J1100; J1170; J1650; J1741; J1756; J1815; J2250; J2270; J2405; J2543; J2704; J2710; J3010; J7030; J7120; Q9967

== ENCOUNTER 2022-12-01 17:36 | Outpatient (CLI) | payer BC, SELFPAY ==
[2022-12-01 18:01] LABS: Basophils Percent Auto 0.2 % (0.2-1.2); Eosinophils Absolute Auto 0.1 K/mm3 (0-0.3); Eosinophils Percent Auto 0.6 % (0-4.4); Hematocrit 32.9 % (37.0-47.0); Hemoglobin 9.3 g/dL (12.0-15.0); Immature Granulocyte Absolute 0.14 K/mm3 (0.00-0.031); Lymphocytes Absolute Auto 2.35 K/mm3 (0.9-3.2); Lymphocytes Percent Auto 16.2 % (18.3-44.2); Mean Corpuscular HGB Conc 28.3 g/dl (32-36); Mean Corpuscular Hemoglobin 21.8 pg (26-34); Mean Platelet Volume 10.1 fl (7.4-10.4); Monocytes Absolute Auto 1.6 K/mm3 (0.1-0.6); Monocytes Percent Auto 10.7 % (2.6-8.5); Neutrophils Absolute Auto 10.4 K/mm3 (1.3-6.7); Neutrophils Percent Auto 71.3 % (45.5-73.1); Platelet Count Result 455 k/mm3 (150-375); Red Blood Count 4.27 M/mm3 (4.2-5.4); Red Cell Distribution Width 19.7 % (11.5-14.5); White Blood Count 14.5 K/mm3 (4.5-10.0)
[2022-12-01 18:07] LABS: Add Urine Microscopic? YES; Appearance Urine Clear (Clear); Bilirubin Urine 1+ (Negative); Blood Urine Negative (Negative); Color Urine Yellow (Yellow); Glucose Urine UA 3+ mg/dL (Negative); Ketones Urine 3+ mg/dL (Negative); Leukocyte Esterase Ur Negative LEU/UL (Negative); Nitrate Urine Negative (Negative); Protein Urine Negative (Negative); Specific Grav Ur 1.025 (1.001-1.035); Urobilinogen Urine 0.2 mg/dL (<2.0); pH Urine 5.5 (5.0-9.0)
[2022-12-01 18:40] LABS: Bacteria Urine Trace /hpf; Mucus Urine Rare /lpf; Squamous Epithelial Cell Urine Many /hpf (Few); WBC Urine 0-3 /hpf
[2022-12-01 22:32] LABS: Platelet Estimate Increased (Adequate)
[2022-12-01 22:33] LABS: Anisocytosis 1+ (NORMAL); Hypochromasia 1+ (NORMAL); Ovalocytes 1+ (NORMAL); Schistocytes Rare (NORMAL)
== END 2022-12-01 17:37 | disposition home or self-care (01) ==
LOC: ANHLAB 17:38
PROVIDERS: PCP Family Medicine; Visit Provider Surgery
DX: K35.32 Acute appendicitis with perforation, localized peritonitis, and gangrene, without abscess (principal)
CPT/HCPCS: 36415; 81001; 85025

== ENCOUNTER 2022-12-02 10:24 | Outpatient (CLI) | payer BC, SELFPAY ==
--- NOTE | ~2022-12-02 | CT_ITS ---
EXAMINATION: CT abdomen pelvis w con DATE: 12/02/2022 11:36 INDICATION: Ruptured appendicitis. TECHNIQUE: Computed tomography (CT) of the abdomen and pelvis was performed with 100 mL Omnipaque 350 intravenous contrast. Automated exposure control and iterative reconstruction technique were employe d. The dose-length product was 1607.38 mGy-cm. COMPARISON: CT abdomen and pelvis 11/26/2022 FINDINGS: The visualized portions of the lung bases demonstrate a small right pleural effusion and de pendent right-sided atelectasis. The heart size is normal. No pericardial effusion. There is a fluid collection at the dome of the liver measuring 11.0 x 1.1 x 12.2 cm with mass effect on the liver. The gallbladder is normal in size. There are surgical changes of the stomach. Again seen is a normal susan ft in the spleen. The pancreas, adrenal glands, and kidneys are normal. There is fat stranding in the right abdomen, consistent with inflammation and edema. There are no pathologically enlarged lymph no marielle. There is gas and trace fluid in right paracolic gutter. There is a small volume of ascites in th e pelvis and left paracolic gutter and adjacent to the spleen. There is mild periportal lymphadenopat hy, likely reactive. There is lumbar levoscoliosis. There is severe lower lumbar spondylosis. IMPRESSION: 1. 11.0 x 1.1 x 12.2 cm fluid collection at the dome of the liver with mass effect, likely an abscess . 2. Small volume of ascites. 3. Fat stranding in right abdomen, consistent with inflammation and edema. 4. Small right pleural effusion, worsened from 11/26/2022. Reviewed, dictated and finalized at location A. HOUSE VAT WORKER IMPRESSION: 1. 11.0 x 1.1 x 12.2 cm fluid collection at the dome of the liver with mass eff ect, likely an abscess. 2. Small volume of ascites. 3. Fat stranding in right abdomen, consistent with inflammation and edema. 4. Small right pleural effusion, worsened from 11/26/2022.
== END 2022-12-02 10:25 | disposition home or self-care (01) ==
LOC: ANHIMG 10:30
PROVIDERS: PCP Family Medicine; Visit Provider Surgery
DX: K35.32 Acute appendicitis with perforation, localized peritonitis, and gangrene, without abscess (principal); Z90.49 Acquired absence of other specified parts of digestive tract; R18.8 Other ascites
CPT/HCPCS: 74177; Q9967

== ENCOUNTER 2022-12-03 10:14 | Outpatient (CLI) | payer BC, SELFPAY ==
[2022-12-03] VITALS (12 sets, daily range): BP systolic 121–161; BP diastolic 68–83; PULSE 92–106; RESP 16–20; O2SAT 95–99
--- NOTE | ~2022-12-03 | CT_ITS ---
EXAMINATION: CT guide absc cath placement DATE: 12/03/2022 12:18 INDICATION: Perihepatic abscess. TECHNIQUE: The procedure including the risks, benefits, and alternatives was discussed with the patie nt. Risks discussed included bleeding, infection, and pneumothorax. The patient understood the risks and benefits and agreed to proceed. The patient was confirmed to be receiving appropriate antibiotic coverage. The skin overlying the abdomen was prepped and draped in usual sterile fashion. Anestheti c was administered with 1% lidocaine subcutaneously. 100 mL Omnipaque 350 intravenous contrast was gi gretchen for practice nurse CT images. An 18 gauge trochar needle was inserted into the area of the perihepatic abs cess with CT guidance. I performed multiple adjustments of the needle while probing with a J-wire and then a Bentson wire and using intermittent aspiration. I was not able to advance the guidewire into the abscess. The dose-length product was 842.51 mGy-cm. There were no immediate complications. FINDINGS: CT images demonstrate the needle in the area of the perihepatic abscess. There is a small r ight pleural effusion. IMPRESSION: 1. Unsuccessful CT-guided perihepatic abscess drainage. 2. Small right pleural effusion. Reviewed, dictated and finalized at location A. OR INTERNET SALES CONSULTANT
[2022-12-03] MEDS: ACETAMINOPHEN 500 MG TABLET 1000 MG PO (12:58)
== END 2022-12-03 16:22 | disposition home or self-care (01) ==
PROVIDERS: Radiology Diagnostic Radiology; PCP Family Medicine; Visit Provider Surgery
PROC: (CPT 75989; principal; 2022-12-03 11:00)
DX: K75.0 Abscess of liver (principal); Z90.49 Acquired absence of other specified parts of digestive tract; J90 Pleural effusion, not elsewhere classified
CPT/HCPCS: 75989; A9270; C1729; C1769; Q9967

== ENCOUNTER 2022-12-05 02:28 | Day surgery (SDC) | payer BC, SELFPAY ==
[2022-12-04 09:43] VITALS: BMI 49.6
--- NOTE | 2022-12-04 09:48 | PC.NURSE ---
Report to the Outpatient Waiting Room, entrance under the green pavilion located off [facility], at time 1130 on date 12/05/22. Planned Procedure Time: 1330. Time changes happen often and if your time is changed the preop area will call you the afternoon before. - You and your visitor will be asked to self-screen and do not enter if you have any COVID symptoms. - Only one visitor is requested with a max of two and NO children visitors are allowed at this time. - The patient visitor may be requested to leave or wait in car when not with patient due to distancing restrictions. - A mask is REQUIRED within the hospital. Patients may have clear liquids (water, carbonated beverages, clear teas, apple juice) until 3 hours prior to surgery with a maximum of 20 ounces. - No food from midnight until time of surgery Take the following medications with a SIP of water the morning of surgery: ANTIBIOTICS, PAIN PILL Medications to discontinue per physician: N/A Date to take last dose: N/A Please no make-up, nail swedish, hairspray, perfume, deodorant, or body powder the day of surgery. No jewelry (including any body piercings) or valuables the day of surgery, leave them at home. Please take a shower or bath the night before, or the morning of, surgery with an antibacterial soap. Wear comfortable, loose fitting clothing. - Jewelry must be removed prior to entering the operating room. Rings and piercings that are not removed may be cut off. - The hospital will not accept responsibility for valuables. - Please leave all valuables, including medications, at home the day of surgery. If you are going home after surgery, a licensed furniture delivery driver must drive you home. - NO public transportation without another adult if you receive anesthesia. - We recommend that an adult stay with you for 24 hours following discharge. - We also recommend that you do not drive, make important decision, drink alcoholic beverages, or take any drugs that were not prescribed by your health care provider for at least 24 hours after your discharge time. Follow any additional instructions given to you from your surgeon. If you or anyone in your household have experienced Covid symptoms in the past week, please notify your surgeon or the nurse liaison at the phone number below for possible testing. Telephone instructions given to HIMANSHU MÉNDEZ and asked if any additional questions and then verbalized understanding. Patient advised to call surgeon office or pre surgery nurse liaison [phone] if any additional questions.
[2022-12-05] VITALS (14 sets, daily range): BP systolic 111–137; BP diastolic 53–76; PULSE 90–106; RESP 16–34; TEMP 36.4–37.5; O2SAT 92–100
--- NOTE | 2022-12-05 12:41 | ECG_ITS ---
Measurements Intervals [place] Rate: 101 P: 24 [place]: 170 QRS: -12 QRSD: 112 T: -1 QT: 357 QTc: 464 Interpretive Statements SINUS TACHYCARDIA VOLTAGE CRITERIA FOR LVH BORDERLINE R WAVE PROGRESSION, ANTERIOR LEADS BORDERLINE T WAVE ABNORMALITY- ANTEROLAT/INF LEADS BASELINE WANDER- I, II BORDERLINE ECG NO PREVIOUS ECG AVAILABLE FOR COMPARISON Electronically Signed On 12-05-2022 13:44:28 PULVERIZER TENDER by Get Slater D.O.
[2022-12-05] MEDS: LACTATED RINGERS 1,000 ML 30 ML IV CONT ×2 (13:15→15:30)
--- NOTE | 2022-12-05 13:40 | WPDHPUPDATE1 ---
History and Physical Update Update Date/Time: 12/05/22 13:40 Patient is 42 yo diabetic woman with morbid obesity who presented with ruptured appendicitis and generalized peritonitis on 11/19/22. She had 7d of IV Zosyn followed by oral Cipro and Metronidazole. She called the office complaining of increasing abdominal pain on 12/01/22. CBC showed leukocytosis and CT showed right sided subdiaphragmatic abscess on 12/02/22. This was unable to be drained percutaneously on 12/03. She is taken to surgery today for laparoscopic drainage as an outpatient. Her oral antibiotics were refilled on 12/03/22. History and Physical has been reviewed, including an updated exam of the patient. There are NO changes in the patient's condition. Risks, benefits, and alternatives have been discussed and questions answered. Patient agrees to proceed with procedure.
[2022-12-05 13:47] LABS: Glucose Point of Care 102 mg/dl (65-105)
--- NOTE | 2022-12-05 13:50 | WPDANESEPPF ---
Anes - Initial Pre Proc Eval Procedure: Operation Date: 12/05/22 13:30 Proposed Procedures p Laparoscopic Possible Open Drainage of a Perihepatic Abscess - Axel Elaine MD Date/Time: 12/05/22 13:50 Surgeon: Axel Elaine MD Pre Op Diagnosis: Perihepatic Abscess Patient Data Age: 42 Gender: F Height: 1.75 m Weight: 152.5 kg Last Vital Signs Temp 98.9 F 12/05/22 13:02 Pulse 100 12/05/22 13:02 Resp 20 12/05/22 13:02 BP 111/61 12/05/22 13:02 Pulse Ox 100 12/05/22 13:02 O2 Del Method Room Air 12/05/22 13:02 Allergies Allergy/AdvReac Type Severity Reaction Status Date / Time No Known Allergies Allergy Verified 12/05/22 13:30 Home Medications Medication Instructions Recorded Confirmed Type acetaminophen 650 mg 650 mg PO Q12H PRN pain #10 tabs 03/08/21 12/05/22 Rx tablet,extended release (Tylenol Arthritis Pain) omeprazole 40 mg capsule,delayed 40 mg PO DAILY #90 caps 10/03/22 12/05/22 Rx release blood sugar diagnostic (Blood #100 ea 10/08/22 11/19/22 Rx Glucose Test strips) blood-glucose meter #1 ea 10/08/22 11/19/22 Rx lancets #200 ea 10/08/22 11/19/22 Rx hydrocodone 5 mg-acetaminophen 325 1 tablet PO Q4-6H PRN Pain Rated 11/27/22 12/05/22 Rx mg tablet 4-6 #20 tabs dapagliflozin 10 mg tablet 10 mg PO QAM #30 tabs 12/01/22 12/05/22 Rx (Farxiga) glipizide 5 mg tablet, extended 5 mg PO DAILY #30 tabs 12/01/22 12/05/22 Rx release 24 hr ciprofloxacin HCl 500 mg tablet 500 mg PO Q12H #14 tabs 12/03/22 12/05/22 Rx metronidazole 500 mg tablet 500 mg PO TID #21 tabs 12/03/22 12/05/22 Rx Laboratory Tests 12/05/22 13:44 POC Capillary Glucose 102 mg/dl mg/dl (65-105) Patient hx anesthesia problems: none Family hx anesthesia problems: none Results Review: All pre-operative results and documents have been reviewed as part of the pre-operative evaluation. [facility] Past Medical History Medical History (Updated 12/03/22 @ 08:28 by Farida Moran) Diabetes Morbid obesity Surgical History Surgical History (Updated 12/02/22 @ 09:48 by Farida Moran) Gastric bypass status for obesity S/P laparoscopic appendectomy 11/19/22 Social History Social History Social History: Smoking status: Never smoker Second hand tobacco smoke exposure: No Alcohol intake: current Drinks per week: 1 Alcohol use details: VERY RARE Substance use: current Substance use type: marijuana Other substance usage details: EDIBLES Last use: LAST WEEK Lack of Transportation: No Lack of Food: Never True Current Housing: I Have Housing Concerned About Future Housing: No Difficulty Paying Gas/Electric Bills: No Difficulty Paying for Meds: No Currently Unemployed: No Education: Master's Degree or Higher Difficulty w/ Childcare or Family Care: No Living arrangements: with family Gender identity (if verbalized by the patient): Female Sexual Orientation (if Verbalized by the Patient): Straight or Heterosexual Spiritual care concerns: No Anes - Eval Final PreProcedure Day of Procedure 12/05/22 13:50 Patient weight: super morbidly obese Airway: Mallampati scale class II ASA classification: III Anesthesia type and monitoring: general ETT and standard monitoring Results Review: All pre-operative results and documents have been reviewed as part of the pre-operative evaluation. Informed Consent: The patient's anesthetic plan and its attendant risks and benefits were discussed with the patient/family/POA. Questions were solicited and answers provided to the satisfaction of the patient/family/POA.
[2022-12-05] MEDS: ceFAZolin 3 GM/D5W 100 ML 100 ML IVPB (13:59)
[2022-12-05] MEDS: BUPIVACAINE/EPINEPHRINE 0.5% 30 ML VIAL 38 ML INFILTRATE (15:19)
[2022-12-05 15:38] LABS: Glucose Point of Care 183 mg/dl (65-105)
--- NOTE | 2022-12-05 15:41 | W.PM.PROC2 ---
Procedure Note - Detailed Date of Procedure 12/05/22 Pre-op Diagnosis Subdiaphragmatic abscess Post-op Diagnosis Same Procedure Performed Laparoscopic drainage right subdiaphragmatic abscess Surgeon Axel Elaine MD Pinball Machine Repairer Keira Melendez DIRECTOR CALL CENTER SALES Anesthesia General and Local (0.5% Marcaine with epinephrine) Indications Patient presented with ruptured appendicitis and generalized peritonitis on November 19, 2022. She was treated in the hospital with IV antibiotics and then discharged on oral antibiotics. She called having increasing pain on December 01. White blood cell count was elevated to 14,000. She had a CT scan which showed a right-sided subdiaphragmatic abscess. Attempts were made to drain this percutaneously but were unsuccessful. She is taken to surgery at this time for laparoscopic drainage of this. [place] right-sided subdiaphragmatic abscess. Findings No purulent fluid was found. It seemed this was more of a rind of blood and inflammatory tissue. The liver was freed from the diaphragm as far back as possible and outline of the area of the abscess was evident on the dome of the liver. The procedure was bloody as there were numerous omental adhesions and anterior abdominal wall adhesions. All of these tended to ooze blood after they were taken down. A 19 Ronnell drain was placed to drain the area. Description of Procedure Patient was taken to surgery and induced into general anesthesia. The abdomen was prepped and draped. The initial trocar was a 5 mm port in the epigastrium just to the right of the falciform ligament. When this was placed, the right side of the anterior abdominal wall was completely obscured by omental adhesions to the anterior abdominal wall. I then placed 2 right-sided 5 mm ports 1 in the right lateral mid abdomen and 1 in the right lateral lower abdomen. All ports were still well above the lower abdominal panniculus. I then made a left-sided mid abdominal 5 mm trocar port and a mid abdominal lower 5 mm port. Patient was placed in reverse Trendelenburg. Mostly extra long trocars and an extra long suction were used as the patient is quite heavy. Using the suction and primarily blunt dissection, I was able to sweep the omental adhesions down from the anterior abdominal wall so the trocars described above could be placed. Once all were in position we were then able to free adhesions so the liver could be visualized. Looking to find a pyogenic abscess, I gently freed the liver from the anterior abdominal wall and then from the diaphragm. Some thickened blood was noted but even though I freed the liver entirely, no purulent fluid was noted. There was a circumscribed outline of the bloody rind that was likely the finding on CT. I thought there was the possibility that this may actually still harbor infection. This was all broken up irrigated and suctioned away. We then looked elsewhere for any abscesses on the lateral segment of the liver or on the right lateral aspect of the liver. None were found. I then set about irrigating and suctioning away the bloody drainage that occurred from freeing the adhesions. Irrigation and suctioning were required repeatedly but eventually the using had stopped and no new blood was apparent. I then placed a 19 Ronnell drain through the right upper trocar site and placed it in the subdiaphragmatic space just above the liver where the outline of the rind or abscess had been located. The drain was sutured securely to the skin. We then looked around 1 additional time. All looked good. We evacuated CO2 and removed the trocar sleeves. The remaining 4 trocar sites were closed at skin level with subcuticular 4-0 Monocryl skin suture. These wounds were dressed with Exofin surgical adhesive. The drain site was dressed with a gauze bandage and Medipore tape. Patient was then awakened and taken to recovery in good condition. Sponge and needle counts were correct x2. Estimated Blood Loss -150
[2022-12-05] MEDS: fentaNYL CITRATE INJ (*CRX) 100 MCG/2 ML VIAL 25 MCG IV PUSH ×5 (15:42→16:41)
[2022-12-05] MEDS: HYDROmorphone HCL INJ (*CRX) 1 MG/ML SYR 0.5 MG IV PUSH ×4 (16:02→16:54)
[2022-12-05] MEDS: LACTATED RINGERS 1,000 ML 100 ML IV CONT (17:55)
[2022-12-05] MEDS: HYDROcodone/acetaminophen (*CRX) 10-325 MG TABLET 1 TAB PO (17:56)
[2022-12-05] MEDS: INSULIN ASPART (*BKC) 100 UNITS/ML SUB-Q (18:02)
[2022-12-05 18:03] LABS: Glucose Point of Care 207 mg/dl (65-105)
[2022-12-05 18:32] LABS: Estimated CRCL calculation 199 ml/min; Estimated Glomerular Filt Rate > 60
--- NOTE | 2022-12-05 18:48 | ADMGEN ---
This patient, Keely Vaca, was admitted to Medical Room 344-01. Patient/family oriented to hospital policies and general routines including ID bracelet, bed and alarms, visiting hours, pain management, procedures, bathroom and other care routines, personal items, smoking policy, room service/diet, and visiting hours. Information on how to activate the Rapid Response Team has been discussed. Patient/Family are encouraged to report perceived risks to care and to ask questions if they do not understand what they are told or what they should do.
[2022-12-05 20:05] LABS: Glucose Point of Care 309 mg/dl (65-105)
[2022-12-05] MEDS: SENNA/DOCUSATE SODIUM TABLET 2 TAB PO (21:30)
[2022-12-05] MEDS: MORPHINE SULFATE (*CRX) 4 MG/ML INJ IV PUSH (21:30)
[2022-12-05] MEDS: FAMOTIDINE 20 MG TABLET PO (21:30)
--- NOTE | 2022-12-05 21:48 | PM.IMCN ---
Assessment and Plan Assessment and plan (1) Postoperative subdiaphragmatic abscess: Code(s): T81.49XA - Infection following a procedure, other surgical site, initial encounter Status: Acute Assessment and Plan: -the patient had her abscess drain today and she has a KEITH drain. -continue with Zosyn. postop care per Dr. Elaine -the patient has some mild leukocytosis with her white count being 14.5. Blood cultures are pending. On 11/20/2022 her body fluid specimen grew pre patellaorlis (2) Anemia: Code(s): D64.9 - Anemia, unspecified Status: Chronic Assessment and Plan: The patient is at her baseline. (3) DM w/o complication type II, uncontrolled: Code(s): E11.65 - Type 2 diabetes mellitus with hyperglycemia Status: Chronic Assessment and Plan: Accu-Chek AC and HS farxiga and glipizide are on hold at this time. Her last A1c was 7.6 on 11/19/2022. (4) Essential hypertension: Code(s): I10 - Essential (primary) hypertension Status: Acute Assessment and Plan: The patient is not currently on any blood pressure medication. I can do p.r.n. hydralazine with parameters. (5) NAVARRO (obstructive sleep apnea): Code(s): G47.33 - Obstructive sleep apnea (adult) (pediatric) Status: Chronic Assessment and Plan: The patient stated that she does not use a BiPAP or CPAP. The patient thought that she had oxygen on. However the nasal cannula was in her nose and the oxygen was turned off and her O2 saturations were within normal limits. Please wean off of oxygen to keep O2 saturations above 92. Plan Thank you for allowing me to consult on this patient. We will continue to Co managed alongside you until the patient is discharged HPI Data of Consult Consult date: 12/05/22 Requesting Physician: Axel Elaine MD Primary Care Provider: Kevin Noel MD Consult Narrative Narrative: Keely Vaca is a 42 year old female who has a history of diabetes. The patient presented with a ruptured appendicitis and generalized peritonitis on 11/19/2022. She has 7 days of Zosyn followed by oral Cipro and Flagyl. The patient came to the surgical office complaining of increased abdominal pain on 12/01/2022. The patient had a CT that showed right-sided sub diaphragmatic abscess on 12/02/2022. It was unable to be drained percutaneously on 12/03. She was taken to surgery today for laparoscopic drainage as outpatient. The patient now has a KEITH drain. Her white count is now 14.5. H&H is 9.3 and 32.9. Which it appears that the patient does have chronic anemia. She is slightly above her baseline. Her blood sugars were 183 and 309 today. Her last hemoglobin A1c was 7.6 on 11/19/2022. The patient was admitted to observation status by the surgical team and the hospitalists were asked to consult on 11/24/2012 23. Review of Systems Review of Systems: See HPI All systems reviewed & are unremarkable except as noted in HPI and below Constitutional: Constitutional: Reports as per HPI and Reports no additional constitutional complaints Eyes: Eyes: Reports as per HPI and Reports no additional eye complaints ENT: Reports system reviewed and no additional complaints, except as documented and Reports Normal hearing present Cardiovascular: Cardiovascular: Reports no additional cardiovascular complaints Respiratory: Respiratory: Reports no additional respiratory complaints and Reports no additional respiratory complaints Gastrointestinal: Gastrointestinal: Reports as per HPI and Reports no additional gastrointestinal complaints Musculoskeletal: Musculoskeletal: Reports no additional musculoskeletal complaints Integumentary/Breasts: Skin/Breast: Reports system reviewed and no additional complaints, except as docu and Reports as per HPI Neurologic: Reports system reviewed and no additional complaints, except as documented, Reports as per HPI and Reports Normal hearing
[2022-12-06 03:15] VITALS: BP 134/61; PULSE 90; RESP 16; TEMP 36.7; O2SAT 97
[2022-12-06] MEDS: HYDROcodone/acetaminophen (*CRX) 10-325 MG TABLET 1 TAB PO ×2 (05:29→13:22)
[2022-12-06] MEDS: LACTATED RINGERS 1,000 ML 100 ML IV CONT (05:34)
[2022-12-06 05:51] LABS: Hematocrit 27.7 % (37.0-47.0); Hemoglobin 7.8 g/dL (12.0-15.0); Mean Corpuscular HGB Conc 28.2 g/dl (32-36); Mean Platelet Volume 10.5 fl (7.4-10.4); Platelet Count Result 438 k/mm3 (150-375); Red Blood Count 3.55 M/mm3 (4.2-5.4); Red Cell Distribution Width 19.9 % (11.5-14.5); White Blood Count 10.5 K/mm3 (4.5-10.0)
[2022-12-06 06:05] LABS: Anion Gap 4 mmol/L (8-16); Blood Urea Nitrogen 4 mg/dL (7-17); Calcium 8.3 mg/dL (8.4-10.2); Carbon Dioxide 26 mmol/L (22-30); Chloride 105 mmol/L (98-107); Estimated CRCL calculation 242 ml/min; Estimated Glomerular Filt Rate > 60; Glucose 167 mg/dL (65-110); Potassium 4.4 mmol/L (3.4-5.0); Sodium 135 mmol/L (137-145)
[2022-12-06 07:20] VITALS: BP 104/54; PULSE 78; RESP 18; TEMP 36.2; O2SAT 96
[2022-12-06 09:08] LABS: Glucose Point of Care 149 mg/dl (65-105)
[2022-12-06] MEDS: HYDROcodone/acetaminophen (*CRX) 5-325 MG TABLET 1 TAB PO (09:13)
[2022-12-06] MEDS: FAMOTIDINE 20 MG TABLET PO (09:13)
[2022-12-06] MEDS: polyethylene glycoL 3350 17 GM POWD.PACK PO (09:13)
[2022-12-06] MEDS: ENOXAPARIN 40 MG/0.4 ML SYRINGE SUB-Q (09:13)
--- NOTE | 2022-12-06 10:28 | PM.PNGS ---
Progress Note: A&P Assessment and Plan (1) Postoperative subdiaphragmatic abscess: Code(s): T81.49XA - Infection following a procedure, other surgical site, initial encounter Status: Acute Assessment and Plan: The patient's pain is much better controlled this morning on oral pain medications. She is tolerating regular diet. She has been in the 90s stable and afebrile. She wishes to go home and was we will discharge her home with the drain in place. She has a follow-up appointment to see Dr. Elaine in the office. Will have the nurse teach drain care prior to discharge. Subjective Subjective Date/Time Seen: 12/06/22 10:28 Patient reports: feels better, pain is less and afebrile Interval history: Patient is doing well this morning and her pain is well controlled on [place] and IV Tylenol. She has tolerated regular diet. Output from the subhepatic KEITH drain is minimal and serosanguineous. She feels like she wants to go home. Exam Narrative: Abdomen is obese but soft. Nontender. KEITH drain minimal serosanguineous fluid. No pus. laparoscopic port site incisions are healing well. Objective Data Vital Signs Vital Signs: Vital Signs - 24 hr 12/05/22 13:02 12/05/22 12:50 12/05/22 15:35 Temperature 37.2 C 37.2 C 37.5 C Pulse Rate 100 100 104 H Respiratory Rate 20 20 28 H Blood Pressure 111/61 111/61 137/67 Pulse Oximetry 100 100 97 Oxygen Delivery Room Air Room Air Simple Face Mask Oxygen Flow Rate 8 12/05/22 15:50 12/05/22 16:05 12/05/22 16:21 Temperature Pulse Rate 100 101 H 103 H Respiratory Rate 28 H 24 H 32 H Blood Pressure 122/63 120/58 L 126/53 L Pulse Oximetry 98 99 92 Oxygen Delivery Simple Face Mask Simple Face Mask Nasal Cannula Oxygen Flow Rate 8 8 2 12/05/22 16:35 12/05/22 16:50 12/05/22 17:10 Temperature Pulse Rate 104 H 104 H 103 H Respiratory Rate 34 H 24 H 28 H Blood Pressure 126/57 L 129/60 123/61 Pulse Oximetry 93 93 92 Oxygen Delivery Nasal Cannula Nasal Cannula Nasal Cannula Oxygen Flow Rate 2 2 2 12/05/22 17:25 12/05/22 17:45 12/05/22 18:00 Temperature 36.9 C 36.4 C Pulse Rate 99 99 101 H Respiratory Rate 28 H 16 16 Blood Pressure 131/68 134/71 125/73 Pulse Oximetry 92 94 94 Oxygen Delivery Nasal Cannula Oxygen Flow Rate 2 12/05/22 19:15 12/05/22 23:00 12/06/22 03:15 Temperature 36.7 C 36.8 C 36.7 C Pulse Rate 106 H 90 90 Respiratory Rate 16 20 16 Blood Pressure 130/63 135/76 134/61 Pulse Oximetry 97 95 97 Oxygen Delivery Oxygen Flow Rate 12/06/22 07:20 Temperature 36.2 C L Pulse Rate 78 Respiratory Rate 18 Blood Pressure 104/54 L Pulse Oximetry 96 Oxygen Delivery Oxygen Flow Rate Intake/Output Intake/Output: Intake & Output 12/03/22 12/04/22 12/05/22 12/06/22 23:59 23:59 23:59 23:59 Intake Total 1950 1300 Output Total 58 60 Balance 1892 1240 Meds/Results Medications: Active Medications Generic Name Dose Route Start Last Admin Trade Name Freq PRN Reason Stop Dose Admin Acetaminophen 500 mg 12/06/22 18:00 Acetaminophen 500 Mg Tablet PO Q6H PRN Mild Pain (1-3) or Fever Hydrocodone Bitart/Acetaminophen 1 tab 12/05/22 17:30 12/06/22 09:13 Hydrocodone/Acetaminophen (*Crx) 5-325 Mg Tablet PO 1 tab Q4H PRN Administration Pain Rated 4-6 Hydrocodone Bitart/Acetaminophen 1 tab 12/05/22 17:30 12/06/22 05:29 Hydrocodone/Acetaminophen (*Crx) 10-325 Mg Tablet PO 1 tab Q6H PRN Administration Pain Rated 7-10 Dextrose 12.5 gm 12/05/22 17:30 Dextrose 50% 25 Gm/50 Ml Syringe IV PUSH PRN PRN Hypoglycemia Protocol Enoxaparin Sodium 40 mg 12/06/22 09:00 12/06/22 09:13 Enoxaparin 40 Mg/0.4 Ml Syringe SUB-Q 40 mg DAILY MIYA Administration Famotidine 20 mg 12/05/22 21:00 12/06/22 09:13 Famotidine 20 Mg Tablet PO 20 mg Q12HR MIYA Administration Glucagon 1 mg 12/05/22 17:30 Glucagon For Inj 1 Mg Vial IM PRN PRN
--- NOTE | 2022-12-06 10:30 | PM.IMPN ---
Progress Note: A&P Assessment and Plan (1) Postoperative subdiaphragmatic abscess: Code(s): T81.49XA - Infection following a procedure, other surgical site, initial encounter Status: Acute Assessment and Plan: -the patient had her abscess drain today and she has a KEITH drain. -continue with Zosyn. postop care per Dr. Elaine -the patient has some mild leukocytosis with her white count being 14.5, better today at 10.5 Blood cultures are pending. On 11/20/2022 her body fluid specimen grew pre patellaorlis (2) Anemia: Code(s): D64.9 - Anemia, unspecified Status: Chronic Assessment and Plan: The patient is at her baseline. (3) DM w/o complication type II, uncontrolled: Code(s): E11.65 - Type 2 diabetes mellitus with hyperglycemia Status: Chronic Assessment and Plan: Accu-Chek AC and HS farxiga and glipizide are on hold at this time. Her last A1c was 7.6 on 11/19/2022. (4) Essential hypertension: Code(s): I10 - Essential (primary) hypertension Status: Acute Assessment and Plan: The patient is not currently on any blood pressure medication. I can do p.r.n. hydralazine with parameters. (5) NAVARRO (obstructive sleep apnea): Code(s): G47.33 - Obstructive sleep apnea (adult) (pediatric) Status: Chronic Assessment and Plan: The patient stated that she does not use a BiPAP or CPAP. The patient thought that she had oxygen on. However the nasal cannula was in her nose and the oxygen was turned off and her O2 saturations were within normal limits. Please wean off of oxygen to keep O2 saturations above 92. Plan Thank you for allowing me to consult on this patient. We will continue to Co managed alongside you until the patient is discharged Time Spent With Patient Time with patient: Greater than 35 minutes Subjective Date/time seen: 12/06/22 1030 Interval history: patient is doing well today. Patient excited she gets go home. Patient denies any chest pain, shortness a breath, nausea, vomiting, diarrhea, constipation, weakness or fatigue. Patient does have a drain present without any signs of infection. Drain is draining a serosanguineous fluid. She was eating breakfast doing well. Review of Systems Review of Systems: All systems reviewed & are unremarkable except as noted in HPI and below Exam Narrative: General: well-nourished, well-appearing 79-year-old female, sitting up in bed, comfortable, NARD Neuro: awake, alert and oriented x4, speech clear, no focal neuro deficits noted HEENMT: normocephalic, atraumatic, EOMI, sclerae anicteric, moist oral mucosa Respiratory: Clear to auscultation bilaterally without crackles, rhonchi or wheezes, nonlabored breathing Cardio: regular rate, regular rhythm with S1-S2 Abdomen: nondistended, normoactive bowel sounds, soft, nontender to palpation, KEITH drain present in the right lower quadrant Extremities: no edema, erythema, or tenderness to palpation, DP pulses 2+ bilaterally Skin: no rashes or lesions, warm and dry Psych: appropriate mood and affect, judgment and insight intact Objective Data Vital Signs Vital Signs: Vital Signs - 24 hr 12/05/22 13:02 12/05/22 12:50 12/05/22 15:35 Temperature 98.9 F 98.9 F 99.5 F Pulse Rate 100 100 104 H Respiratory Rate 20 20 28 H Blood Pressure 111/61 111/61 137/67 Pulse Oximetry 100 100 97 Oxygen Delivery Room Air Room Air Simple Face Mask Oxygen Flow Rate 8 12/05/22 15:50 12/05/22 16:05 12/05/22 16:21 Temperature Pulse Rate 100 101 H 103 H Respiratory Rate 28 H 24 H 32 H Blood Pressure 122/63 120/58 L 126/53 L Pulse Oximetry 98 99 92 Oxygen Delivery Simple Face Mask Simple Face Mask Nasal Cannula Oxygen Flow Rate 8 8 2 12/05/22 16:35 12/05/22 16:50 12/05/22 17:10 Temperature Pulse Rate 104 H 104 H 103 H Respiratory Rate 34 H 24 H 28 H Blood Pressure 126/57 L 129/60 123/61 Pulse Oximetry 93 93 92 Oxygen Delivery Nasal C
[2022-12-06 11:15] VITALS: BP 137/74; PULSE 91; RESP 20; TEMP 36.4; O2SAT 98
[2022-12-06] MEDS: CIPROFLOXACIN 500 MG TAB PO (12:20)
[2022-12-06] MEDS: metroNIDAZOLE 250 MG TABLET 500 MG PO (12:20)
[2022-12-06 12:26] LABS: Glucose Point of Care 174 mg/dl (65-105)
--- NOTE | 2022-12-06 15:42 | PC.NURSE ---
RN educated pt on drain management and care. RN sent pt home with measurement cup and drain sponges. pt received packet on KEITH drain management and care as well.
== END 2022-12-06 14:15 | disposition home or self-care (01) ==
LOC: ANHSURGERY 15:39 → ANH3MED 17:59
PROVIDERS: PCP Family Medicine; Visit Provider Surgery
PROC: 0FT44ZZ Resection of Gallbladder, Percutaneous Endoscopic Approach (ICD-10-PCS; CPT 47562; principal; 2022-12-05 13:30)
DX: T81.49XA Infection following a procedure, other surgical site, initial encounter (principal); K65.1 Peritoneal abscess; K66.0 Peritoneal adhesions (postprocedural) (postinfection); R00.0 Tachycardia, unspecified; D64.9 Anemia, unspecified; E11.65 Type 2 diabetes mellitus with hyperglycemia; I10 Essential (primary) hypertension; D72.829 Elevated white blood cell count, unspecified; G47.33 Obstructive sleep apnea (adult) (pediatric); E66.01 Morbid (severe) obesity due to excess calories; Z68.42 Body mass index [BMI] 45.0-49.9, adult; Z98.84 Bariatric surgery status; F10.90 Alcohol use, unspecified, uncomplicated; F12.90 Cannabis use, unspecified, uncomplicated; Z79.1 Long term (current) use of non-steroidal anti-inflammatories (NSAID); Z79.891 Long term (current) use of opiate analgesic; Z79.4 Long term (current) use of insulin
CPT/HCPCS: 49322; 36415; 80048; 82565; 82948; 85027; 86850; 86900; 86901; 93005; A9270; C1713; J0131; J0690; J1100; J1170; J1650; J1815; J2250; J2270; J2405; J2543; J2704; J2710; J3010; J7120

== ENCOUNTER 2022-12-08 14:29 | Outpatient (CLI) | payer BC, SELFPAY ==
[2022-12-08 14:58] LABS: Hematocrit 32.2 % (37.0-47.0); Hemoglobin 9.1 g/dL (12.0-15.0); Mean Corpuscular HGB Conc 28.3 g/dl (32-36); Mean Corpuscular Hemoglobin 21.8 pg (26-34); Mean Platelet Volume 9.9 fl (7.4-10.4); Platelet Count Result 477 k/mm3 (150-375); Red Blood Count 4.18 M/mm3 (4.2-5.4); Red Cell Distribution Width 20.6 % (11.5-14.5); White Blood Count 13.2 K/mm3 (4.5-10.0)
== END 2022-12-08 14:30 | disposition home or self-care (01) ==
PROVIDERS: PCP Family Medicine; Visit Provider Surgery
DX: D64.9 Anemia, unspecified (principal)
CPT/HCPCS: 36415; 85027

== ENCOUNTER 2022-12-11 11:48 | Outpatient (CLI) | payer BC, SELFPAY ==
[2022-12-11 12:10] LABS: Basophils Absolute Auto 0.1 K/mm3 (0.0-0.1); Basophils Percent Auto 0.4 % (0.2-1.2); Eosinophils Absolute Auto 0.2 K/mm3 (0-0.3); Eosinophils Percent Auto 1.2 % (0-4.4); Hematocrit 30.5 % (37.0-47.0); Hemoglobin 8.5 g/dL (12.0-15.0); Immature Granulocyte Absolute 0.16 K/mm3 (0.00-0.031); Immature Granulocyte Percent A 1.3 % (0-0.5); Lymphocytes Absolute Auto 2.59 K/mm3 (0.9-3.2); Mean Corpuscular HGB Conc 27.9 g/dl (32-36); Mean Corpuscular Hemoglobin 21.6 pg (26-34); Mean Corpuscular Volume 77.4 fl (80-100); Monocytes Absolute Auto 1.4 K/mm3 (0.1-0.6); Monocytes Percent Auto 11.3 % (2.6-8.5); Neutrophils Percent Auto 64.8 % (45.5-73.1); Nucleated Red Blood Cells Perc 0.2 % (0.0-0.2); Platelet Count Result 434 k/mm3 (150-375); Red Blood Count 3.94 M/mm3 (4.2-5.4); Red Cell Distribution Width 20.9 % (11.5-14.5); White Blood Count 12.4 K/mm3 (4.5-10.0)
[2022-12-11 12:37] LABS: Anisocytosis 2+ (NORMAL); Hypochromasia 2+ (NORMAL); Microcytosis 1+ (NORMAL); Schistocytes None Seen (NORMAL)
== END 2022-12-11 11:49 | disposition home or self-care (01) ==
LOC: ANHLAB 11:49
PROVIDERS: PCP Family Medicine; Visit Provider Surgery
DX: K35.32 Acute appendicitis with perforation, localized peritonitis, and gangrene, without abscess (principal); T81.49XA Infection following a procedure, other surgical site, initial encounter
CPT/HCPCS: 36415; 85025

== ENCOUNTER 2022-12-15 09:31 | Outpatient (CLI) | payer BC, SELFPAY ==
[2022-12-15 10:11] LABS: Basophils Percent Auto 0.2 % (0.2-1.2); Eosinophils Absolute Auto 0.1 K/mm3 (0-0.3); Hematocrit 26.8 % (37.0-47.0); Hemoglobin 7.6 g/dL (12.0-15.0); Immature Granulocyte Absolute 0.25 K/mm3 (0.00-0.031); Immature Granulocyte Percent A 1.9 % (0-0.5); Lymphocytes Absolute Auto 2.62 K/mm3 (0.9-3.2); Mean Corpuscular HGB Conc 28.4 g/dl (32-36); Mean Corpuscular Hemoglobin 21.5 pg (26-34); Mean Corpuscular Volume 75.9 fl (80-100); Mean Platelet Volume 10.2 fl (7.4-10.4); Monocytes Absolute Auto 1.3 K/mm3 (0.1-0.6); Neutrophils Absolute Auto 8.8 K/mm3 (1.3-6.7); Neutrophils Percent Auto 66.9 % (45.5-73.1); Nucleated Red Blood Cells Perc 0.2 % (0.0-0.2); Platelet Count Result 376 k/mm3 (150-375); Red Blood Count 3.53 M/mm3 (4.2-5.4); Red Cell Distribution Width 21.4 % (11.5-14.5); White Blood Count 13.1 K/mm3 (4.5-10.0)
[2022-12-15 11:02] LABS: Anisocytosis 2+ (NORMAL); Hypochromasia 2+ (NORMAL); Microcytosis 1+ (NORMAL); Platelet Estimate Adequate (Adequate)
[2022-12-15 11:03] LABS: Schistocytes None Seen (NORMAL)
== END 2022-12-15 09:32 | disposition home or self-care (01) ==
LOC: ANHLAB 09:33
PROVIDERS: PCP Family Medicine; Visit Provider Surgery
DX: K35.32 Acute appendicitis with perforation, localized peritonitis, and gangrene, without abscess (principal); T81.49XA Infection following a procedure, other surgical site, initial encounter
CPT/HCPCS: 36415; 85025

== ENCOUNTER 2022-12-18 13:49 | Outpatient (CLI) | payer BC, SELFPAY ==
[2022-12-18 14:10] LABS: Basophils Percent Auto 0.3 % (0.2-1.2); Eosinophils Absolute Auto 0.1 K/mm3 (0-0.3); Eosinophils Percent Auto 1.9 % (0-4.4); Hematocrit 28.5 % (37.0-47.0); Hemoglobin 8.2 g/dL (12.0-15.0); Immature Granulocyte Absolute 0.06 K/mm3 (0.00-0.031); Immature Granulocyte Percent A 0.8 % (0-0.5); Lymphocytes Percent Auto 24.7 % (18.3-44.2); Mean Corpuscular HGB Conc 28.8 g/dl (32-36); Mean Corpuscular Hemoglobin 21.8 pg (26-34); Mean Corpuscular Volume 75.8 fl (80-100); Mean Platelet Volume 10.3 fl (7.4-10.4); Monocytes Absolute Auto 0.9 K/mm3 (0.1-0.6); Monocytes Percent Auto 11.7 % (2.6-8.5); Neutrophils Absolute Auto 4.4 K/mm3 (1.3-6.7); Neutrophils Percent Auto 60.6 % (45.5-73.1); Platelet Count Result 375 k/mm3 (150-375); Red Blood Count 3.76 M/mm3 (4.2-5.4); Red Cell Distribution Width 21.2 % (11.5-14.5); White Blood Count 7.3 K/mm3 (4.5-10.0)
[2022-12-18 15:45] LABS: Hypochromasia 1+ (NORMAL); Platelet Estimate Adequate (Adequate); Schistocytes None Seen (NORMAL)
[2022-12-18 15:46] LABS: Anisocytosis 3+ (NORMAL)
[2022-12-18 15:47] LABS: Ovalocytes 1+ (NORMAL)
== END 2022-12-18 13:50 | disposition home or self-care (01) ==
LOC: ANHLAB 13:51
PROVIDERS: PCP Family Medicine; Visit Provider Surgery
DX: K65.0 Generalized (acute) peritonitis (principal)
CPT/HCPCS: 36415; 85025

== ENCOUNTER 2022-12-25 15:13 | Outpatient (CLI) | payer BC, SELFPAY ==
[2022-12-25 15:25] LABS: Basophils Percent Auto 0.5 % (0.2-1.2); Eosinophils Absolute Auto 0.2 K/mm3 (0-0.3); Eosinophils Percent Auto 2.3 % (0-4.4); Hematocrit 32.6 % (37.0-47.0); Hemoglobin 9.1 g/dL (12.0-15.0); Immature Granulocyte Absolute 0.03 K/mm3 (0.00-0.031); Immature Granulocyte Percent A 0.4 % (0-0.5); Lymphocytes Absolute Auto 2.28 K/mm3 (0.9-3.2); Lymphocytes Percent Auto 28.7 % (18.3-44.2); Mean Corpuscular HGB Conc 27.9 g/dl (32-36); Mean Corpuscular Hemoglobin 21.8 pg (26-34); Mean Platelet Volume 10.5 fl (7.4-10.4); Monocytes Absolute Auto 0.8 K/mm3 (0.1-0.6); Monocytes Percent Auto 10.5 % (2.6-8.5); Neutrophils Absolute Auto 4.6 K/mm3 (1.3-6.7); Neutrophils Percent Auto 57.6 % (45.5-73.1); Platelet Count Result 312 k/mm3 (150-375); Red Blood Count 4.18 M/mm3 (4.2-5.4); Red Cell Distribution Width 21.8 % (11.5-14.5); White Blood Count 7.9 K/mm3 (4.5-10.0)
[2022-12-25 16:00] LABS: Anisocytosis 3+ (NORMAL); Hypochromasia 1+ (NORMAL); Platelet Estimate Adequate (Adequate); Schistocytes None Seen (NORMAL)
[2022-12-25 16:02] LABS: Polychromasia 1+ (NORMAL)
[2022-12-25 16:03] LABS: Ovalocytes 1+ (NORMAL)
== END 2022-12-25 15:14 | disposition home or self-care (01) ==
PROVIDERS: PCP Family Medicine; Visit Provider Surgery
DX: D64.9 Anemia, unspecified (principal)
CPT/HCPCS: 36415; 85025

== ENCOUNTER 2023-05-16 08:47 | Emergency (ER) | payer BC, SELFPAY ==
[2023-05-16 08:56] VITALS: BP 122/85; PULSE 105; RESP 18; TEMP 36.4; O2SAT 100
--- NOTE | 2023-05-16 09:40 | ED.SKABFB ---
HPI - Skin/Abscess/Foreign Bdy General Chief complaint: Skin/Abscess/Foreign Body Stated complaint: Bump on Body Time Seen by Provider: 05/16/23 09:09 Source: patient and RN notes reviewed Mode of arrival: ambulatory Limitations: no limitations History of Present Illness HPI narrative: Patient presents today complaining of a 3-4 day history of a bump to her left buttock that she believes to be an abscess. It has been draining a small amount of pus. She has been applying warm compresses in soaking in Epsom salt. No history of abscesses, boils. No history of staph infections. Related Data Home Medications Medication Instructions Recorded Confirmed dapagliflozin propanediol 10 mg mg 05/16/23 05/16/23 tablet (Farxiga) escitalopram oxalate 10 mg tablet mg 05/16/23 Allergies Allergy/AdvReac Type Severity Reaction Status Date / Time No Known Allergies Allergy Verified 05/16/23 08:57 Review of Systems Review of Systems: CONSTITUTIONAL: Denies body aches, fever, chills, or sweats. EYES: Denies visual changes, redness, or discharge. ENT: Denies rhinorrhea, congestion, sore throat, or otalgia. CARDIOVASCULAR: Denies chest pain, palpitations, or edema. RESPIRATORY: Denies cough or dyspnea. GASTROINTESTINAL: Denies abdominal pain, nausea, vomiting, or diarrhea. GENITOURINARY: Denies dysuria or hematuria. SKIN: Denies rash, itching, or wounds.+ abscess to right buttock MUSCULOSKELETAL: Denies back pain, joint pain, or myalgia. NEUROLOGIC: Denies headache, numbness, tingling, or weakness. PSYCH: Denies depression or anxiety. [facility] Past Medical History Medical History Diabetes Morbid obesity Postoperative subdiaphragmatic abscess Surgical History Surgical History Gastric bypass status for obesity H/O tubal ligation S/P diskectomy S/P laparoscopic appendectomy 11/19/22 Family History Family History Mother Diabetes mellitus Grandparent Heart disease Grandfather Lung cancer Grandmother Social History Social History Social History: She is and has no children. She works for the [employer] [place]. She is a lifelong nonsmoker. She does not use any marijuana alcohol or illicit drugs. 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 Code status full code Smoking status: Never smoker Second hand tobacco smoke exposure: No Alcohol intake: current Drinks per week: 1 Alcohol use details: VERY RARE Substance use: never Substance use type: marijuana Other substance usage details: EDIBLES Last use: LAST WEEK Lack of Transportation: No Lack of Food: Never True Current Housing: I Have Housing Concerned About Future Housing: Decline to Answer Difficulty Paying Gas/Electric Bills: Decline to Answer Difficulty Paying for Meds: Decline to Answer Currently Unemployed: Decline to Answer Education: Decline to Answer Difficulty w/ Childcare or Family Care: Decline to Answer Living arrangements: with family Occupation/Education: occupation Gender identity (if verbalized by the patient): Female Sexual Orientation (if Verbalized by the Patient): Straight or Heterosexual Spiritual care concerns: No Comments At time of signature, I have reviewed and agree with nursing past medical, surgical, social and family history unless otherwise noted. Please see nursing chart for further information. There is no relevant family history pertinent to the presenting complaint Exam Narrative: GENERAL: Well-appearing, well-nourished, and in no acute distress. HEAD: Normocephalic, atraumatic. EYES: EOMI. No redness or drainage. Conjunctivae normal. ENT: Mucous membranes pink and moist. NECK: Normal AROM.
== END 2023-05-16 09:44 | disposition home or self-care (01) ==
PROVIDERS: Emergency Provider Nurse Practitioner; PCP Family Medicine
DX: L02.31 Cutaneous abscess of buttock (principal); E11.9 Type 2 diabetes mellitus without complications; E66.01 Morbid (severe) obesity due to excess calories; Z68.41 Body mass index [BMI] 40.0-44.9, adult; Z98.84 Bariatric surgery status
CPT/HCPCS: 10061; 87070; 87075; 87205; 99213; G0463

== ENCOUNTER 2024-01-01 16:56 | Outpatient (CLI) | payer BC, SELFPAY ==
[2024-01-01 17:15] LABS: Appearance Urine Cloudy (Clear); Bacteria Urine 4+ /hpf; Bilirubin Urine Negative (Negative); Blood Urine 1+ (Negative); Color Urine Yellow (Yellow); Glucose Urine UA 3+ mg/dL (Negative); Ketones Urine Trace mg/dL (Negative); Leukocyte Esterase Ur 2+ LEU/UL (NEGATIVE); Nitrate Urine Negative (Negative); Non Pathogenic Casts 0-2; Protein Urine Negative (Negative); Specific Grav Ur 1.029 (1.001-1.035); Squamous Epithelial Cell Urine Occasional /hpf (Few); Urobilinogen Urine 0.2 mg/dL (<2.0); WBC Urine >100 /hpf (0-3)
[2024-01-01 17:40] LABS: Add Urine Microscopic? YES
== END 2024-01-01 16:57 | disposition home or self-care (01) ==
PROVIDERS: PCP Family Medicine; Visit Provider Physician Assistant Medical
DX: R30.0 Dysuria (principal); R35.0 Frequency of micturition
CPT/HCPCS: 81001; 87077; 87086; 87186

== ENCOUNTER 2024-03-22 13:25 | Outpatient (CLI) | payer BC, SELFPAY ==
[2024-03-22 15:15] LABS: HIV 1/2 Ab P24 Ag Result Negative (Negative)
[2024-03-22 15:41] LABS: Hepatitis B Surface Antigen Negative (Negative)
[2024-03-22 15:59] LABS: Hepatitis B Surface Anti Res Negative; Hepatitis C Virus Antibody Negative (Negative)
[2024-03-22 16:03] LABS: Chlamydia trachomatis NOT DETECTED (NOT DETECTE); Neisseria gonorrhoeae PCR NOT DETECTED (NOT DETECTE)
[2024-03-23 09:11] LABS: Rapid Plasma Reagin Non-Reactive (NonReactive)
[2024-03-24 03:29] LABS: Hepatitis B Core Ab Total NON-REACTIVE (NON-REACTIVE)
== END 2024-03-22 13:26 | disposition home or self-care (01) ==
LOC: ANHLAB 13:27
PROVIDERS: PCP Family Medicine; Visit Provider Physician Assistant
DX: Z20.2 Contact with and (suspected) exposure to infections with a predominantly sexual mode of transmission (principal)
CPT/HCPCS: 36415; 86592; 86703; 86704; 86706; 86803; 87340; 87491; 87591; G0432

== ENCOUNTER 2024-05-10 11:27 | Outpatient (CLI) | payer BC, SELFPAY ==
[2024-05-10 12:02] LABS: Basophils Percent Auto 0.6 % (0.2-1.2); Eosinophils Absolute Auto 0.1 K/mm3 (0-0.3); Eosinophils Percent Auto 0.8 % (0-4.4); Hematocrit 43.9 % (37.0-47.0); Hemoglobin 14.6 g/dL (12.0-15.0); Immature Granulocyte Absolute 0.02 K/mm3 (0.00-0.031); Immature Granulocyte Percent A 0.3 % (0-0.5); Lymphocytes Absolute Auto 2.28 K/mm3 (0.9-3.2); Lymphocytes Percent Auto 31.6 % (18.3-44.2); Mean Corpuscular HGB Conc 33.3 g/dl (32-36); Mean Corpuscular Hemoglobin 32.2 pg (26-34); Mean Corpuscular Volume 96.9 fl (80-100); Mean Platelet Volume 11.4 fl (7.4-10.4); Monocytes Absolute Auto 0.7 K/mm3 (0.1-0.6); Neutrophils Absolute Auto 4.2 K/mm3 (1.3-6.7); Neutrophils Percent Auto 57.7 % (45.5-73.1); Platelet Count Result 157 k/mm3 (150-375); Red Blood Count 4.53 M/mm3 (4.2-5.4); White Blood Count 7.2 K/mm3 (4.5-10.0)
[2024-05-10 12:07] LABS: Appearance Urine Clear (Clear); Bacteria Urine None Seen /hpf; Bilirubin Urine Negative (Negative); Blood Urine 3+ (Negative); Color Urine Yellow (Yellow); Glucose Urine UA Negative (Negative); Ketones Urine Negative (Negative); Leukocyte Esterase Ur Trace LEU/UL (Negative); Nitrate Urine Negative (Negative); Non Pathogenic Casts 0-2; Protein Urine Negative (Negative); RBC Urine >100 /hpf (0-2); Specific Grav Ur 1.025 (1.001-1.035); Squamous Epithelial Cell Urine None Seen /hpf (Few); WBC Urine 0-5 /hpf (0-3); pH Urine 6.5 (5.0-9.0)
[2024-05-10 12:09] LABS: Add Urine Microscopic? YES
[2024-05-10 12:18] LABS: Iron 94 ug/dL (37-170)
[2024-05-10 12:21] LABS: Alanine Aminotransferase 27 U/L (6-35); Alkaline Phosphatase 59 U/L (38-126); Anion Gap 3 mmol/L (4-12); Aspartate Amino Transferase 26 U/L (14-36); Bilirubin,Total 0.6 mg/dL (0.2-1.3); Blood Urea Nitrogen 13 mg/dL (7-17); Carbon Dioxide 29 mmol/L (22-30); Chloride 107 mmol/L (98-107); Cholesterol 168 mg/dL (0-200); Estimated Glomerular Filt Rate > 60; Glucose 129 mg/dL (65-110); HDL Direct 58 mg/dL; Potassium 4.4 mmol/L (3.4-5.0); Sodium 139 mmol/L (137-145); Triglycerides 81 mg/dL (<150)
[2024-05-10 12:32] LABS: Percent Iron Saturation 30 % (20-50)
[2024-05-10 12:33] LABS: LDL Cholesterol Direct 93 mg/dL
[2024-05-10 12:45] LABS: Creatinine Urine 131.2 mg/dL
[2024-05-10 12:47] LABS: MALB Creatinine Ratio 18.5 mg/g (0-30); Microalbumin Urine Random 24.3 mg/L (0-16.7)
[2024-05-10 13:15] LABS: Vitamin D 25 Hydroxy 23.6 ng/mL
[2024-05-10 13:27] LABS: Folic Acid 19.5 ng/mL (2.76->20)
[2024-05-10 14:21] LABS: Hemoglobin A1C 5.4 % (<5.7)
== END 2024-05-10 11:28 | disposition home or self-care (01) ==
LOC: ANHLAB 11:30
PROVIDERS: PCP Family Medicine; Visit Provider Physician Assistant
DX: Z00.00 Encounter for general adult medical examination without abnormal findings (principal); D64.9 Anemia, unspecified; E11.65 Type 2 diabetes mellitus with hyperglycemia; I10 Essential (primary) hypertension; Z98.84 Bariatric surgery status
CPT/HCPCS: 36415; 80053; 80061; 81001; 82043; 82306; 82607; 82728; 82746; 83036; 83540; 83550; 84443; 85025

== ENCOUNTER 2024-07-22 14:33 | Outpatient (CLI) | payer BC, SELFPAY ==
[2024-07-22 15:55] LABS: HIV 1/2 Ab P24 Ag Result Negative (Negative)
[2024-07-22 15:55] LABS: Hepatitis B Surface Antigen Negative (Negative)
[2024-07-22 16:03] LABS: Rapid Plasma Reagin Non-Reactive (NonReactive)
[2024-07-22 16:12] LABS: Hepatitis B Surface Anti Res Negative; Hepatitis C Virus Antibody Negative (Negative)
[2024-07-22 16:27] LABS: Chlamydia trachomatis NOT DETECTED (NOT DETECTE); Neisseria gonorrhoeae PCR NOT DETECTED (NOT DETECTE)
[2024-07-27 05:58] LABS: Hepatitis B Core Ab Total NON-REACTIVE (NON-REACTIVE)
== END 2024-07-22 14:34 | disposition home or self-care (01) ==
LOC: ANHLAB 14:35
PROVIDERS: PCP Family Medicine; Visit Provider Physician Assistant Medical
DX: Z20.2 Contact with and (suspected) exposure to infections with a predominantly sexual mode of transmission (principal)
CPT/HCPCS: 36415; 86592; 86695; 86696; 86703; 86704; 86706; 86803; 87340; 87491; 87591; G0432

== ENCOUNTER 2025-01-11 11:34 | Outpatient (CLI) | payer BC, SELFPAY ==
--- NOTE | ~2025-01-11 | XR_ITS ---
Right wrist Technique: PA, oblique, lateral, and ulnar deviation views were obtained. Clinical History: Pain Findings: No acute fracture or dislocation is seen. Osseous alignment is anatomic. Joint spaces are p reserved. Soft tissues are unremarkable. Impression: Unremarkable right wrist radiographs. Reviewed, dictated and finalized at location . KEY PROOF READER Impression: Unremarkable right wrist radiographs.
--- NOTE | ~2025-01-11 | XR_ITS ---
AP view of the pelvis and AP and lateral views of the bilateral hips Clinical history: Pain Findings: No acute fracture or dislocation is seen. Osseous alignment is anatomic. Bilateral hip and SI joint spaces are preserved. Soft tissues are unremarkable. Impression: No significant abnormality is seen. Reviewed, dictated and finalized at [facility]. TENDER INSULATION BOARD Impression: No significant abnormality is seen.
[2025-01-11 12:17] LABS: Alanine Aminotransferase 14 U/L (6-35); Alkaline Phosphatase 71 U/L (38-126); Anion Gap 9 mmol/L (4-12); Aspartate Amino Transferase 18 U/L (14-36); Bilirubin,Total 0.7 mg/dL (0.2-1.3); Blood Urea Nitrogen 11 mg/dL (7-17); Calcium 9.2 mg/dL (8.4-10.2); Carbon Dioxide 28 mmol/L (22-30); Chloride 103 mmol/L (98-107); Estimated Glomerular Filt Rate > 60; Glucose 123 mg/dL (65-110); Potassium 4.2 mmol/L (3.4-5.0); Sodium 140 mmol/L (137-145)
[2025-01-11 13:10] LABS: Hemoglobin A1C 5.6 % (<5.7)
== END 2025-01-11 11:35 | disposition home or self-care (01) ==
LOC: ANHLAB 11:37
PROVIDERS: PCP Family Medicine; Visit Provider Physician Assistant Medical
DX: E11.9 Type 2 diabetes mellitus without complications (principal); E66.01 Morbid (severe) obesity due to excess calories; M25.531 Pain in right wrist; M25.551 Pain in right hip
CPT/HCPCS: 36415; 73110; 73521; 80053; 83036

== ENCOUNTER 2025-05-11 09:49 | Outpatient (CLI) | payer BC, SELFPAY ==
[2025-05-11 10:30] LABS: Hematocrit 39.9 % (37.0-47.0); Hemoglobin 12.9 g/dL (12.0-15.0); Mean Corpuscular HGB Conc 32.3 g/dl (32-36); Mean Corpuscular Hemoglobin 29.5 pg (26-34); Mean Corpuscular Volume 91.1 fl (80-100); Mean Platelet Volume 11.8 fl (7.4-10.4); Platelet Count Result 175 k/mm3 (150-375); Red Blood Count 4.38 M/mm3 (4.2-5.4); Red Cell Distribution Width 13.7 % (11.5-14.5); White Blood Count 7.4 K/mm3 (4.5-10.0)
[2025-05-11 10:53] LABS: Alanine Aminotransferase 14 U/L (6-35); Albumin Level 3.7 g/dL (3.5-5.1); Alkaline Phosphatase 74 U/L (38-126); Anion Gap 7 mmol/L (4-12); Aspartate Amino Transferase 23 U/L (14-36); Bilirubin,Total 0.5 mg/dL (0.2-1.3); Blood Urea Nitrogen 9 mg/dL (7-17); Calcium 8.9 mg/dL (8.4-10.2); Carbon Dioxide 27 mmol/L (22-30); Chloride 106 mmol/L (98-107); Cholesterol 206 mg/dL (0-200); Estimated Glomerular Filt Rate > 60; Glucose 106 mg/dL (65-110); HDL Direct 61 mg/dL; Sodium 140 mmol/L (137-145); Triglycerides 114 mg/dL (<150)
[2025-05-11 11:07] LABS: LDL Cholesterol Direct 100 mg/dL
[2025-05-11 11:17] LABS: Vitamin D 25 Hydroxy 17.7 ng/mL
[2025-05-11 11:28] LABS: Hemoglobin A1C 5.3 % (<5.7); MALB Creatinine Ratio 110.5 mg/g (0-30); Microalbumin Urine Random 160.2 mg/L (0-16.7)
[2025-05-11 11:57] LABS: Folic Acid 15.2 ng/mL (2.76->20)
== END 2025-05-11 09:50 | disposition home or self-care (01) ==
LOC: ANHLAB 09:50
PROVIDERS: PCP Family Medicine; Visit Provider Physician Assistant Medical
DX: Z00.00 Encounter for general adult medical examination without abnormal findings (principal); E11.9 Type 2 diabetes mellitus without complications; D64.9 Anemia, unspecified; F32.A Depression, unspecified; F41.9 Anxiety disorder, unspecified; Z68.42 Body mass index [BMI] 45.0-49.9, adult; Z98.84 Bariatric surgery status
CPT/HCPCS: 36415; 80053; 80061; 82043; 82306; 82607; 82746; 83036; 84443; 85027

== ENCOUNTER 2025-05-15 10:08 | Outpatient (CLI) | payer BC, SELFPAY ==
[2025-05-15 12:11] LABS: MALB Creatinine Ratio 10.2 mg/g (0-30); Microalbumin Urine Random 19.3 mg/L (0-16.7)
== END 2025-05-15 10:09 | disposition home or self-care (01) ==
LOC: ANHLAB 10:09
PROVIDERS: PCP Family Medicine; Visit Provider Physician Assistant Medical
DX: E11.9 Type 2 diabetes mellitus without complications (principal)
CPT/HCPCS: 82043

== ENCOUNTER 2025-08-25 11:38 | Outpatient (CLI) | payer BC, SELFPAY ==
[2025-08-25 12:28] LABS: Anion Gap 5 mmol/L (4-12); Blood Urea Nitrogen 7 mg/dL (7-17); Calcium 8.4 mg/dL (8.4-10.2); Carbon Dioxide 24 mmol/L (22-30); Chloride 107 mmol/L (98-107); Estimated Glomerular Filt Rate > 60; Glucose 92 mg/dL (65-110); Potassium 4.1 mmol/L (3.4-5.0); Sodium 136 mmol/L (137-145)
== END 2025-08-25 11:39 | disposition home or self-care (01) ==
LOC: ANHSURGERY 11:42
PROVIDERS: Anesthesiology; PCP Family Medicine; Visit Provider Plastic Surgery
DX: E11.9 Type 2 diabetes mellitus without complications (principal); Z01.818 Encounter for other preprocedural examination
CPT/HCPCS: 36415; 80048

== ENCOUNTER 2025-08-30 02:41 | Day surgery (SDC) | payer BC, SELFPAY ==
--- NOTE | 2025-08-24 10:49 | SUR.PREOP ---
[facility] has started construction of its new state of the art ER which will open Spring 2026. With this, we anticipate parking may be a challenge for some our surgical patients and families. Parking spaces are limited but are available for all Surgical, obstetrics, and ER patients sharing this lot. If you arrive and find you are having a hard time finding a parking space, please note that we understand the challenges, please drive around the hospital and park near Hospital Entrance 1. When you enter this entrance, you can ask a volunteer to direct or take you back to the surgical waiting area to check in. We appreciate everyone?s understanding of these expected challenges while we build for your future. Report to the Outpatient Waiting Room, entrance under the green pavilion located off [address], at time 11am on date 08/30/25. Planned Procedure Time: 1pm.? Time changes happen often and if your time is changed the preop area will call you the afternoon before. - You and your visitor will be asked to self-screen and do not enter if you have any COVID symptoms. Please call surgeon if you need to reschedule. - A mask is optional within the hospital at this time. Patients may have clear liquids (water, carbonated beverages, clear teas, apple juice) until 5am prior to surgery with a maximum of 20 ounces . - No food from midnight until time of surgery and no smoking, or chewing tobacco (or any form of nicotine). No chewing gum, candy or mints. Take only the following medications with a SIP of water on the morning of surgery: None DO NOT STOP ANY OF YOUR OTHER PRESCRIPTION MEDICATIONS PRIOR TO SURGERY EXCEPT THE FOLLOWING Hold all vitamins and supplements for 3 days per anesthesiologist. Medications to discontinue per physician Date to take last dose 08/26/25. Please no make-up, nail swazi, hairspray, perfume, deodorant, or body powder the day of surgery.? No jewelry (including any body piercings) or valuables the day of surgery, leave them at home.? Please take a shower or bath the night before, or the morning of, surgery with an antibacterial soap.? Wear comfortable, loose fitting clothing.? Children are encouraged to wear pajamas. - Jewelry must be removed prior to entering the operating room.? Rings and piercings that are not removed may be cut off. - The hospital will not accept responsibility for valuables.? - Please leave all valuables, including medications, at home the day of surgery. If you are going home after surgery, a licensed dolly driver must drive you home.? - NO public transportation without another adult if you receive anesthesia. - We recommend that an adult stay with you for 24 hours following discharge. - We also recommend that you do not drive, make important decision, drink alcoholic beverages, or take any drugs that were not prescribed by your health care provider for at least 24 hours after your discharge time. For Pediatric surgeries, we recommend two adults accompany the child home. Follow any additional instructions given to you from your surgeon. Telephone instructions given to Keely and asked if any additional questions and then verbalized understanding. Patient advised to call surgeon office or pre surgery nurse liaison [phone] if any additional questions.
[2025-08-24 11:09] VITALS: BMI 46.7
--- NOTE | 2025-08-30 07:09 | PM.HPGS ---
History of Present Illness History of Present Illness Chief complaint: de quervain's tenosynovitis Narrative: Patient seen and examined in pre-operative holding area. No interval change in medical history or symptoms. Patient recalls previous discussion of benefits and alternatives to procedure. Continues to desire to proceed with right first extensor compartment release. Reviewed procedure, post-op expectations and risks including but not limited to bleeding, infection, injury to tendon/nerve/vessel, decreased hand function, stiffness, RSD, no change or worsening of symptoms. I discussed the possible use of assistants and their participation in the case. Patient stated understanding and signed the consent form wishing to proceed. Review of Systems Review of Systems: All systems reviewed & are unremarkable except as noted in HPI and below PMFSH Past Medical History Medical History (Updated 08/29/25 @ 14:47 by Adria Mederos DO) Seizure NAVARRO (obstructive sleep apnea) Screening mammogram, encounter for Perirectal abscess Perihepatic abscess Postoperative subdiaphragmatic abscess Ruptured appendicitis Diabetes Morbid obesity Essential hypertension Surgical History Surgical History History of appendectomy S/P diskectomy H/O tubal ligation S/P laparoscopic appendectomy 11/19/22 Gastric bypass status for obesity Family History Family History Mother Diabetes mellitus Grandparent Heart disease Grandfather Lung cancer Grandmother Social History Social History Social History: Code status full code Smoking status: Never smoker Second hand tobacco smoke exposure: No Alcohol intake: current Alcohol use details: VERY RARE Substance use: former Substance use type: marijuana Do You Feel Safe in your Home?: Yes Lack of Transportation: No Lack of Food: Never True Current Housing: I Have Housing Concerned About Future Housing: No Difficulty Paying Gas/Electric Bills: No Difficulty Paying for Meds: No Currently Unemployed: No Education: Don't Know Difficulty w/ Childcare or Family Care: No Living arrangements: alone Occupation/Education: occupation Additional occupation/education comments: [employer] Gender identity (if verbalized by the patient): Female Sexual Orientation (if Verbalized by the Patient): Bisexual Spiritual care concerns: No Meds Home Medications and Allergies Home Medications ?Medication ?Instructions ?Recorded ?Confirmed ?Type blood sugar diagnostic (Blood #100 ea 10/08/22 08/24/25 Rx Glucose Test strips) blood-glucose meter #1 ea 10/08/22 08/24/25 Rx lancets #200 ea 10/08/22 08/24/25 Rx tirzepatide 15 mg/0.5 mL 15 mg (0.5 mL) subcut WEEKLY #2 mL 08/10/25 08/24/25 Rx subcutaneous pen injector (Kulwinder) cyanocobalamin (vitamin B-12) 1,000 mcg PO DAILY 08/24/25 08/24/25 History 1,000 mcg tablet (Vitamin B-12) multivitamin (Daily Multi-Vitamin 1 tablet PO DAILY 08/24/25 08/24/25 History tablet) Allergies Allergy/AdvReac Type Severity Reaction Status Date / Time No Known Allergies Allergy Verified 08/24/25 10:52 Exam Narrative: unchanged Assessment and Plan Assessment and plan (1) De Quervain's tenosynovitis, right: Code(s): M65.4 - Radial styloid tenosynovitis [de Quervain] Status: Acute Assessment and Plan: cont as above
--- NOTE | 2025-08-30 07:10 | W.PM.PROC2 ---
Procedure Note - Detailed Date of Procedure 08/30/25 Pre-op Diagnosis de quervain's tenosynovitis Post-op Diagnosis Same Procedure Performed right first extensor compartment release Surgeon Crescencio Simpson MD Software Engineering Project Manager williams valladares pa-c Anesthesia MAC Description of Procedure INFORMED CONSENT: The patient was seen and examined and marked in the pre-op area.? The patient signed the consent form. PROCEDURE IN DETAIL:The patient taken back to OR on the stretcher in supine position. Time out performed with anesthesia, surgeon and staff agreeing on patient's name site and surgery to be performed SCDs were placed on the lower extremities and inflated. A tourniquet was placed on {right} upper extremity and antibiotics given IV After anesthesia administered sedation I injected {4}cc 1%lido with epi and 0.5% marcaine plain at the operative site The?{right upper extremity}?was prepped and draped in sterile fashion the??{right upper extremity} was? exsanguinated with Esmarch bandage and tourniquet inflated to 250mmHg I proceeded with making a longitudinal incision over the right 1st extensor compartment through skin and dermis with a 15 blade scalpel. Littler scissors were used to spread through subcutaneous tissue down to the extensor sheath. The a branch of the dorsal radial sensory nerve was identified and protected throughout the procedure. I made an incision on the dorsal aspect of the sheath with a 15 blade scalpel. The Littler scissors were used to spread above it and below it proximally and distally completing the transection of the sheath entirely. Ragnell retractor was used withdrawal the APL and EPB tendons for inspection. The tendons were free of masses and synovitis and gliding smoothly in the sheath without triggering or crepitus. No subsheaths were appreciated. I irrigated with normal saline and closed with 3-0 Vicryl for dermis and 4-0 Monocryl for subcuticular closure. A dressing of Dermabond, 4x4, peter, and an katie bandagewas applied after the tourniquet was let down noting the hand was warm and well perfused. The patient was then awaken from anesthesia and transferred to the recovery room in stable condition.? Complications - none EBL- 0cc Disposition - home in stable condition Williams Valladares PA-c was essential for positioning, retraction, closure and dressing placement [facility] Billing Surgery - Charge Forward: Surgery Billing ( same for williams adding )
[2025-08-30] MEDS: ACETAMINOPHEN 500 MG TABLET 1000 MG PO (12:15)
[2025-08-30 12:25] VITALS: BP 136/74; PULSE 66; RESP 14; TEMP 37.2; O2SAT 100; BMI 46.7
[2025-08-30] MEDS: LACTATED RINGERS 1,000 ML 30 ML IV CONT (12:28)
--- NOTE | 2025-08-30 12:28 | WPDANESEPPF ---
Anes - Initial Pre Proc Eval Procedure: Operation Date: 08/30/25 13:00 Proposed Procedures p Right First Extensor Compartment Release - Crescencio Simpson MD Date/Time: 08/30/25 12:28 Surgeon: Crescencio Simpson MD Pre Op Diagnosis: de quervain's tenosynovitis Patient Data Age: 44 Gender: F Height: 1.75 m Weight: 143.5 kg Last Vital Signs Temp 37.2 C 08/30/25 12:25 Pulse 66 08/30/25 12:25 Resp 14 08/30/25 12:25 BP 136/74 08/30/25 12:25 Pulse Ox 100 08/30/25 12:25 O2 Del Method Room Air 08/30/25 12:25 Allergies Allergy/AdvReac Type Severity Reaction Status Date / Time No Known Allergies Allergy Verified 08/30/25 12:24 Home Medications ?Medication ?Instructions ?Recorded ?Confirmed ?Type blood sugar diagnostic (Blood #100 ea 10/08/22 08/24/25 Rx Glucose Test strips) blood-glucose meter #1 ea 10/08/22 08/24/25 Rx lancets #200 ea 10/08/22 08/24/25 Rx tirzepatide 15 mg/0.5 mL 15 mg (0.5 mL) subcut WEEKLY #2 mL 08/10/25 08/24/25 Rx subcutaneous pen injector (Mounjaro) cyanocobalamin (vitamin B-12) 1,000 mcg PO DAILY 08/24/25 08/24/25 History 1,000 mcg tablet (Vitamin B-12) multivitamin (Daily Multi-Vitamin 1 tablet PO DAILY 08/24/25 08/24/25 History tablet) tramadol 50 mg tablet 50 mg PO Q6H PRN pain #12 tabs 08/30/25 Rx Laboratory Tests 08/30/25 12:09 POC Capillary Glucose 93 mg/dl (65-105) Patient hx anesthesia problems: none Family hx anesthesia problems: none Results Review: All pre-operative results and documents have been reviewed as part of the pre-operative evaluation. [facility] Past Medical History Medical History Seizure NAVARRO (obstructive sleep apnea) Screening mammogram, encounter for Perirectal abscess Perihepatic abscess Postoperative subdiaphragmatic abscess Ruptured appendicitis Diabetes Morbid obesity Essential hypertension Surgical History Surgical History History of appendectomy S/P diskectomy H/O tubal ligation S/P laparoscopic appendectomy 11/19/22 Gastric bypass status for obesity Family History Family History Mother Diabetes mellitus Grandparent Heart disease Grandfather Lung cancer Grandmother Social History Social History Social History: Code status full code Smoking status: Never smoker Second hand tobacco smoke exposure: No Alcohol intake: current Alcohol use details: VERY RARE Substance use: former Substance use type: marijuana Do You Feel Safe in your Home?: Yes Lack of Transportation: No Lack of Food: Never True Current Housing: I Have Housing Concerned About Future Housing: No Difficulty Paying Gas/Electric Bills: No Difficulty Paying for Meds: No Currently Unemployed: No Education: Don't Know Difficulty w/ Childcare or Family Care: No Living arrangements: alone Occupation/Education: occupation Additional occupation/education comments: [employer] Gender identity (if verbalized by the patient): Female Sexual Orientation (if Verbalized by the Patient): Bisexual Spiritual care concerns: No Anes - Eval Final PreProcedure Day of Procedure 08/30/25 12:28 Patient weight: morbidly obese Heart: regular rate and rhythm Lungs: clear to auscultation Airway: Mallampati scale class II Neurological: alert and oriented Last oral intake: >/= 8 hours ASA classification: III Emergent: no Anesthetic plan: proceed Anesthesia type and monitoring: general GIVS and standard monitoring Results Review: All pre-operative results and documents have been reviewed as part of the pre-operative evaluation. Informed Consent: The patient's anesthetic plan and its attendant risks and benefits were discussed with the patient/family/POA. Questions were solicited and answers provided to the satisfaction of the patient/family/POA.
[2025-08-30] MEDS: ceFAZolin 3 GM/D5W 100 ML 100 ML IVPB (12:53)
[2025-08-30] MEDS: LIDO 1%/EPINEPHRINE 1:100,000 50 ML VIAL 10 ML INFILTRATE (12:57)
[2025-08-30] MEDS: BUPivacaine HCL 0.5% 10 ML AMP INFILTRATE (12:59)
[2025-08-30 13:14] VITALS: BP 119/69; PULSE 73; RESP 20; O2SAT 100
[2025-08-30 13:40] VITALS: BP 130/70; PULSE 58; RESP 20
[2025-08-30] MEDS: oxyCODONE HCL (*CRX) 5 MG TAB IR PO (13:56)
[2025-08-30 14:10] VITALS: BP 134/87; PULSE 68; RESP 20
[2025-08-30 14:25] VITALS: BP 130/80; PULSE 70; RESP 20
== END 2025-08-30 14:31 | disposition home or self-care (01) ==
PROVIDERS: PCP Family Medicine; Visit Provider Plastic Surgery
PROC: (CPT 25000; principal; 2025-08-30 13:00)
DX: M65.4 Radial styloid tenosynovitis [de Quervain] (principal); I10 Essential (primary) hypertension; E11.9 Type 2 diabetes mellitus without complications; G47.33 Obstructive sleep apnea (adult) (pediatric); R56.9 Unspecified convulsions; F12.90 Cannabis use, unspecified, uncomplicated; E66.01 Morbid (severe) obesity due to excess calories; Z68.42 Body mass index [BMI] 45.0-49.9, adult; Z79.85 Long-term (current) use of injectable non-insulin antidiabetic drugs; Z98.890 Other specified postprocedural states; Z98.51 Tubal ligation status; Z98.84 Bariatric surgery status; Z98.1 Arthrodesis status; Z80.1 Family history of malignant neoplasm of trachea, bronchus and lung; Z82.49 Family history of ischemic heart disease and other diseases of the circulatory system
CPT/HCPCS: 25000; 82948; A9270; J0690; J2004; J3010; J7120

== ENCOUNTER 2025-11-08 12:26 | Outpatient (CLI) | payer BC, SELFPAY ==
--- NOTE | ~2025-11-08 | MM_ITS ---
EXAMINATION: screening [facility] BI w lizandro INDICATION: Asymptomatic, referred for screening mammogram COMPARISON: Baseline TECHNIQUE: Digital Breast Tomosynthesis CC, MLO views of Both breasts were obtained with computer-aided detection to assist in interpretation of the study. FINDINGS: There are scattered areas of fibroglandular density. There is an asymmetry seen on the cc view in the Lateral, in the middle third left breast. There is additional asymmetry seen on the cc view in the Medial, anterior third left breast. Elsewhere, there are no mammographic features of malignancy. IMPRESSION: 1. Left breast asymmetries. 2. No evidence of malignancy in the Right breast. RECOMMENDATION: Left breast Diagnostic mammogram with true lateral, appropriate spot compression views and an ultrasound if needed. BI-RADS Category 0: Incomplete: Needs additional imaging evaluation. Reviewed, dictated and finalized at location A. OGRAPHER IMPRESSION: 1. Left breast asymmetries. 2. No evidence of malignancy in the Right breast. RECOMMENDATION: Left breast Diagnostic mammogram with true lateral, appropriate spot compressio n views and an ultrasound if needed. BI-RADS Category 0: Incomplete: Needs additional imaging evaluation.
== END 2025-11-08 12:27 | disposition home or self-care (01) ==
LOC: MICIMG 12:27
PROVIDERS: PCP Family Medicine; Visit Provider Obstetrics & Gynecology
DX: Z12.31 Encounter for screening mammogram for malignant neoplasm of breast (principal); R92.8 Other abnormal and inconclusive findings on diagnostic imaging of breast
CPT/HCPCS: 77063; 77067